=== PATIENT | male | born 1945 | race Caucasian/White ===

== ENCOUNTER 2018-05-03 08:43 | Inpatient (IN) ==
--- NOTE | 2018-05-03 09:25 | RAD ---
Examination: AP chest, two views History: Chest pain SOB Comparison 04/21/2018 Findings: Stable cardiac enlargement. Extensive bilateral interstitial process noted in the lungs, slightly increased since prior. No focal consolidation, pneumothorax or large pleural effusion is evident. Impression: Described findings consistent with increasing pulmonary edema/CHF superimposed on some element of more chronic interstitial scarring. Reported By:
[2018-05-03 09:27] LABS: BASOPHILS % (AUTO) 0.4 % (0.2-1.0); EOSINOPHILS # (AUTO) 0.1 x10^3/uL (0.0-0.2); EOSINOPHILS % (AUTO) 0.7 % (0.9-2.9); HEMATOCRIT 40.3 % (42.0-54.0); HEMOGLOBIN 13.8 g/dL (13.5-18.0); LYMPHOCYTES # (AUTO) 0.7 X10^3/uL (1.3-2.9); LYMPHOCYTES % (AUTO) 6.4 % (21.0-51.0); MEAN CORPUSCULAR HEMOGLOBIN 33.3 pg (27.0-34.0); MEAN CORPUSCULAR HGB CONC 34.4 g/dL (33.0-35.0); MEAN CORPUSCULAR VOLUME 96.9 fL (80.0-100.0); MONOCYTES # (AUTO) 0.5 x10^3/uL (0.3-0.8); MONOCYTES % (AUTO) 4.6 % (0.0-13.0); NEUTROPHILS % (AUTO) 87.9 % (42.0-75.0); PLATELET COUNT 169 X10^3/uL (150.0-450.0); RED BLOOD COUNT 4.16 X10^6/uL (4.7-6.0); WHITE BLOOD COUNT 11.4 X10^3/uL (3.6-10.0)
--- NOTE | 2018-05-03 09:29 | DR.SOBA ---
HPI Time Seen Time Seen by Provider: 05/03/18 09:27 Primary Care Physician Primary Care Physician: SRINATH LUTHER HPI Comment HPI Comment: WAS IN [facility] IN [place] WHERE HE WAS EVALUATED AND CHF CONFIM Complaints Chief Complaint Doctors Comments: INCREASING SOBSINCE LAST NIGHT. HISTORY CHF A ND COPD. ON HOME OXYGEN 3L/M. Chief Complaint:: PT C/O SOB, SINCE LAST NIGHT, PT WEARS 02 3 LPM AT HOME , PTS RESP LABORDED LUNGS CLEAR NO DISTRESS NOTED,,BR Self Treatment fo Chief Complaint: PT APPERS TO BE WINDED WHEN IS AMBULATORY , PT WAS 77 02 SATS , UPON ARRIVAL PT DID NOT HAVE HIS O2 ON , PT WAS D/C FROM [facility] IN [place] , A WEEK AGO ,,BR Reviewed Nurses Notes Reviewed: Yes Source History Provided: Patient Mode of Arrival Mode of Arrival: Ambulatory Timing Onset of Chief Complaint: 05/02/18 Duration Duration: Days Context Onset:: At Rest and With Light Exertion PE Risk Factors:: None History of:: COPD and CHF Currently on:: Inhaled Bronchodilators Modifying Factors Worsens:: Exertion and Lying Flat Improves:: Inhaler, Rest and Sitting Up Associated Signs and Symptoms Associated Signs and Symptoms: Wheeze and Chest Pain If Chest Pain Quality: Pleuritic PMH PMH Past Medical History: Yes Past Medical History: Diabetes and Dyslipidemia Past Surgical History: Yes Surgical History: Cholecystectomy Family History History of Family Medical Conditions: No Social History Does patient currently use any type of tobacco product: No Have you used tobacco products in the last 12 months: No Type of Tobacco Use: None Does any household member use tobacco: No Alcohol Use: None Do you use any recreational Drugs:: No Lives With: Family Lives Where: Home infectious screening In the last 2 months have you had wt loss of >10#?: NO Have you had fever, night sweats or hemotysis?: No Have you traveled outside the country in the last 6 months?: No Isolation: Standard PE Vital Signs Vitals: Temperature 97.6 F Pulse Rate 71 Respiratory Rate 20 Blood Pressure [Left Arm] 169/80 Blood Pressure 166/78 O2 Sat by Pulse Oximetry 97 ROR Labs Reviewed Result Diagrams: 05/03/18 09:16 05/03/18 09:16 Laboratory: WBC 11.4 X10^3/uL (3.6-10.0) H 05/03/18 09:16 RBC 4.16 X10^6/uL (4.7-6.0) L 05/03/18 09:16 Hgb 13.8 g/dL (13.5-18.0) 05/03/18 09:16 Hct 40.3 % (42.0-54.0) L 05/03/18 09:16 MCV 96.9 fL (80.0-100.0) 05/03/18 09:16 MCH 33.3 pg (27.0-34.0) 05/03/18 09:16 MCHC 34.4 g/dL (33.0-35.0) 05/03/18 09:16 RDW 13.0 % (11.6-16.5) 05/03/18 09:16 Plt Count 169 X10^3/uL (150.0-450.0) 05/03/18 09:16 MPV 7.0 fL (7.4-11.0) L 05/03/18 09:16 Neut % (Auto) 87.9 % (42.0-75.0) H 05/03/18 09:16 Lymph % (Auto) 6.4 % (21.0-51.0) L 05/03/18 09:16 [place] % (Auto) 4.6 % (0.0-13.0) 05/03/18 09:16 Eos % (Auto) 0.7 % (0.9-2.9) L 05/03/18 09:16 Baso % (Auto) 0.4 % (0.2-1.0) 05/03/18 09:16 Neut # (Auto) 10.0 x10^3/uL (2.2-4.8) H 05/03/18 09:16 Lymph # (Auto) 0.7 X10^3/uL (1.3-2.9) L 05/03/18 09:16 [place] # (Auto) 0.5 x10^3/uL (0.3-0.8) 05/03/18 09:16 Eos # (Auto) 0.1 x10^3/uL (0.0-0.2) 05/03/18 09:16 Baso # (Auto) 0.0 X10^3/uL (0.0-0.1) 05/03/18 09:16 Absolute Nucleated RBC 0.1 /100WBC 05/03/18 09:16 INR Target Range - 05/03/18 09:16 INR 1.08 (0.8-1.3) 05/03/18 09:16 APTT 30.5 SECONDS (22.9-36.5) 05/03/18 09:16 PTT Comment - 05/03/18 09:16 D-Dimer 789 ng/mL (0-400) H* 05/03/18 09:16 Sodium 137 mmol/L (136-145) 05/03/18 09:16 Corrected Sodium 138 mmol/L (136-145) 05/03/18 09:16 Potassium 3.6 mmol/L (3.5-5.1) 05/03/18 09:16 Chloride 97 mmol/L (98-107) L 05/03/18 09:16 Carbon Dioxide 31.0 mmol/L (21-32) 05/03/18 09:16 BUN 28 mg/dL (7-18) H 05/03/18 09:16 Creatinine 2.19 mg/dL (0.70-1.30) H 05/03/18 09:16 Est GFR (MDRD) Af Amer 38 (>60) L 05/03/18 09:16 Est GFR (MDRD) Non-Af 32 (>60) L 05/03/18 09:16 Glucose 160 mg/dL (65-99) H 05/03/18 09:16 Calcium 8.9 mg/dL (8.5-10.1) 05/03/18 09:16 Corrected Calcium TNP 05/03/18 09:16 Magnesium 1.9 mg/dL (1.7-2.9) 05/03/18 09:16 Total Bilirubin 1.30 mg/dL (0.2-1.0) H 05/03/18 09:16 AST 15 Units/L (15-37) 05/03/18 09:16 ALT 23 Units/L (12-78) 05/03/18 09:16 Alkaline Phosphatase 59 Units/L (46-116) 05/03/18 09:16 Creatine Kinase 52 Units/L (39-308) 05/03/18 09:16 CK-MB (CK-2) 1.6 ng/mL (0-4.0) 05/03/18 09:16 CK/CKMB % Calc 3.1 % (<4) 05/03/18 09:16 Troponin I 0.02 ng/mL (0-1.5) 05/03/18 09:16 B-Natriuretic Peptide 1260 pg/mL (0-79) H* 05/03/18 09:16 Total Protein 7.8 g/dL (6.4-8.2) 05/03/18 09:16 Albumin 3.8 g/dL (3.4-5.0) 05/03/18 09:16 Globulin 4.0 g/dL (2.5-4.5) 05/03/18 09:16 Albumin/Globulin Ratio 1.0 Ratio (1.1-2.1) L 05/03/18 09:16
[2018-05-03 09:48] LABS: BLOOD UREA NITROGEN 28 mg/dL (7-18); CALCIUM 8.9 mg/dL (8.5-10.1); CHLORIDE 97 mmol/L (98-107); COR NA(FOR HYPERGLY) 138 mmol/L (136-145); CREATININE 2.19 mg/dL (0.70-1.30); SODIUM 137 mmol/L (136-145); TROPONIN I 0.02 ng/mL (0-1.5); eGFR NON BLACK RACES 32 (>60)
[2018-05-03 09:53] LABS: ALANINE AMINOTRANSFERASE 23 Units/L (12-78); ALBUMIN 3.8 g/dL (3.4-5.0); ALKALINE PHOSPHATASE 59 Units/L (46-116); ASPARTATE AMINO TRANSFERASE 15 Units/L (15-37); CKMB % 3.1 % (<4); CREATINE KINASE 52 Units/L (39-308); CREATINE KINASE MB 1.6 ng/mL (0-4.0); MAGNESIUM 1.9 mg/dL (1.7-2.9); TOTAL PROTEIN 7.8 g/dL (6.4-8.2)
[2018-05-03 10:14] LABS: B-TYPE NATRIURETIC PEPTIDE 1260 pg/mL (0-79)
[2018-05-03] MEDS: TOPROL XL PO SCH (17:34)
[2018-05-03] MEDS: LASIX IVP SCH (17:40)
[2018-05-03] MEDS: PROzac PO SCH (17:40)
[2018-05-03] MEDS: AVODART PO SCH (17:40)
[2018-05-03] MEDS ORDERED: ZOFRAN INJ 4 MG VIAL IVP PRN (17:44)
[2018-05-03] MEDS ORDERED: ZOFRAN INJ 4 MG VIAL ONE (17:47)
[2018-05-03] MEDS: TYLENOL 325 MG TAB PO PRN (20:25)
[2018-05-03] MEDS: FLOMAX PO SCH (20:26)
[2018-05-03] MEDS: PriLOSEC PO SCH (20:26)
[2018-05-03] MEDS: TRICOR TAB 48 MG PO SCH (20:26)
[2018-05-03] MEDS: SINGULAIR TAB 10 MG PO SCH (20:26)
[2018-05-03] MEDS: SNACK - Diabetic Appropriate PO SCH (20:35)
[2018-05-03] MEDS: PHENERGAN INJ 25 MG IV PRN (21:09)
[2018-05-04 06:26] LABS: BASOPHILS % (AUTO) 0.4 % (0.2-1.0); EOSINOPHILS # (AUTO) 0.1 x10^3/uL (0.0-0.2); EOSINOPHILS % (AUTO) 1.1 % (0.9-2.9); HEMATOCRIT 37.3 % (42.0-54.0); LYMPHOCYTES # (AUTO) 1.4 X10^3/uL (1.3-2.9); LYMPHOCYTES % (AUTO) 13.9 % (21.0-51.0); MEAN CORPUSCULAR HEMOGLOBIN 33.5 pg (27.0-34.0); MEAN CORPUSCULAR HGB CONC 34.8 g/dL (33.0-35.0); MEAN CORPUSCULAR VOLUME 96.2 fL (80.0-100.0); MEAN PLATELET VOLUME 7.1 fL (7.4-11.0); MONOCYTES # (AUTO) 0.6 x10^3/uL (0.3-0.8); MONOCYTES % (AUTO) 6.1 % (0.0-13.0); NEUTROPHILS # (AUTO) 7.8 x10^3/uL (2.2-4.8); NEUTROPHILS % (AUTO) 78.5 % (42.0-75.0); PLATELET COUNT 144 X10^3/uL (150.0-450.0); RED BLOOD COUNT 3.87 X10^6/uL (4.7-6.0); RED CELL DISTRIBUTION WIDTH 12.6 % (11.6-16.5)
[2018-05-04 06:46] LABS: ALANINE AMINOTRANSFERASE 20 Units/L (12-78); ALBUMIN 3.4 g/dL (3.4-5.0); ALKALINE PHOSPHATASE 52 Units/L (46-116); ASPARTATE AMINO TRANSFERASE 17 Units/L (15-37); BLOOD UREA NITROGEN 29 mg/dL (7-18); CALCIUM 8.6 mg/dL (8.5-10.1); CARBON DIOXIDE 31.3 mmol/L (21-32); CHLORIDE 98 mmol/L (98-107); COR NA(FOR HYPERGLY) 138 mmol/L (136-145); CREATININE 2.32 mg/dL (0.70-1.30); SODIUM 137 mmol/L (136-145); TOTAL PROTEIN 6.9 g/dL (6.4-8.2); eGFR NON BLACK RACES 29 (>60)
[2018-05-04] MEDS ORDERED: K-RIDER 10 MEQ/NS 100 ML 10 MEQ/100 ML BAG IV PRN (06:54)
[2018-05-04] MEDS ORDERED: K-DUR TAB 20 MEQ PO PRN (06:54)
[2018-05-04] MEDS ORDERED: POTASSIUM CHLORIDE LIQ 20 MEQ UDC PO PRN (06:54)
[2018-05-04] MEDS ORDERED: POTASSIUM CHL 60 MEQ/NS 0.45% 500 ML IV PRN (06:54)
[2018-05-04] MEDS ORDERED: MAGNESIUM SULFATE 1 GRAM/100 mL PREMIX 1 GM/100 ML BAG IV PRN (06:54)
[2018-05-04] MEDS ORDERED: KLOR-CON PO PRN (06:54)
[2018-05-04] MEDS ORDERED: MICRO K EXTEN CAP 10 MEQ PO PRN (06:54)
[2018-05-04] MEDS ORDERED: POTASSIUM CHL 40 MEQ/NS 0.45% 500 ML IV PRN (06:54)
[2018-05-04 08:02] VITALS: BMI 34.8
[2018-05-04] MEDS: FLOMAX PO SCH ×2 (08:27→20:24)
[2018-05-04] MEDS: JANUVIA PO SCH (08:27)
[2018-05-04] MEDS: PriLOSEC PO SCH ×2 (08:27→20:24)
[2018-05-04] MEDS: TOPROL XL PO SCH (08:27)
[2018-05-04] MEDS: LASIX IVP SCH (08:27)
[2018-05-04] MEDS: PROzac PO SCH (08:27)
[2018-05-04] MEDS: ASPIRIN 81 MG CHEWTAB PO SCH (08:27)
[2018-05-04] MEDS: AVODART PO SCH (13:58)
[2018-05-04] MEDS: PHENERGAN INJ 25 MG IV PRN ×2 (13:59→22:23)
[2018-05-04] MEDS: SYNTHROID 100 mcg TAB PO SCH (16:08)
[2018-05-04] MEDS: TRICOR TAB 48 MG PO SCH (20:24)
[2018-05-04] MEDS: SINGULAIR TAB 10 MG PO SCH (20:24)
[2018-05-04] MEDS: SNACK - Diabetic Appropriate PO SCH (20:26)
[2018-05-04] MEDS: TYLENOL 325 MG TAB PO PRN (22:23)
[2018-05-05 05:24] LABS: BASOPHILS # (AUTO) 0.1 X10^3/uL (0.0-0.1); BASOPHILS % (AUTO) 0.6 % (0.2-1.0); EOSINOPHILS # (AUTO) 0.2 x10^3/uL (0.0-0.2); EOSINOPHILS % (AUTO) 2.1 % (0.9-2.9); HEMOGLOBIN 12.8 g/dL (13.5-18.0); LYMPHOCYTES # (AUTO) 1.5 X10^3/uL (1.3-2.9); LYMPHOCYTES % (AUTO) 15.8 % (21.0-51.0); MEAN CORPUSCULAR HEMOGLOBIN 33.6 pg (27.0-34.0); MEAN CORPUSCULAR HGB CONC 34.5 g/dL (33.0-35.0); MEAN CORPUSCULAR VOLUME 97.3 fL (80.0-100.0); MEAN PLATELET VOLUME 7.4 fL (7.4-11.0); MONOCYTES # (AUTO) 0.8 x10^3/uL (0.3-0.8); MONOCYTES % (AUTO) 8.3 % (0.0-13.0); NEUTROPHILS # (AUTO) 7.1 x10^3/uL (2.2-4.8); NEUTROPHILS % (AUTO) 73.2 % (42.0-75.0); PLATELET COUNT 143 X10^3/uL (150.0-450.0); RED CELL DISTRIBUTION WIDTH 12.9 % (11.6-16.5); WHITE BLOOD COUNT 9.6 X10^3/uL (3.6-10.0)
[2018-05-05 05:32] LABS: ALBUMIN 3.3 g/dL (3.4-5.0); CALCIUM 8.6 mg/dL (8.5-10.1); CARBON DIOXIDE 32.2 mmol/L (21-32); COR CA(FOR HYPOALB) 9.2 mg/dL (8.5-10.1); CREATININE 2.39 mg/dL (0.70-1.30); TOTAL PROTEIN 6.8 g/dL (6.4-8.2)
--- NOTE | 2018-05-05 06:51 | RAD ---
HISTORY: Shortness of breath Study: Chest AP portable Comparison: 05/03/2018 Findings: The heart remains enlarged. No definite congestive heart failure is noted. Diffuse bilateral interstitial lung disease is present some of which may be chronic and [place] which may be due to some superimposed edema. The appearance is not significantly changed from the prior examination. No pleural effusions are identified. The bony thorax is unremarkable. IMPRESSION: No significant change from the prior examination Reported By:
[2018-05-05] MEDS: PROzac PO SCH (09:15)
[2018-05-05] MEDS: PriLOSEC PO SCH ×2 (09:15→20:33)
[2018-05-05] MEDS: LASIX IVP SCH ×2 (09:15→20:33)
[2018-05-05] MEDS: JANUVIA PO SCH (09:15)
[2018-05-05] MEDS: ASPIRIN 81 MG CHEWTAB PO SCH (09:15)
[2018-05-05] MEDS: FLOMAX PO SCH ×2 (09:15→20:33)
[2018-05-05] MEDS: AVODART PO SCH (09:15)
[2018-05-05] MEDS: TOPROL XL PO SCH (09:15)
[2018-05-05] MEDS: NORVASC TAB 5 MG PO SCH (12:43)
[2018-05-05] MEDS: PHENERGAN INJ 25 MG IV PRN (12:43)
[2018-05-05] MEDS: TYLENOL 325 MG TAB PO PRN (12:43)
[2018-05-05] MEDS: SYNTHROID 100 mcg TAB PO SCH (16:39)
[2018-05-05] MEDS: TRICOR TAB 48 MG PO SCH (20:33)
[2018-05-05] MEDS: SINGULAIR TAB 10 MG PO SCH (20:33)
[2018-05-05] MEDS: SNACK - Diabetic Appropriate PO SCH (20:34)
[2018-05-06] MEDS: TYLENOL 325 MG TAB PO PRN ×2 (04:56→16:23)
[2018-05-06 05:15] LABS: BASOPHILS # (AUTO) 0.1 X10^3/uL (0.0-0.1); BASOPHILS % (AUTO) 0.6 % (0.2-1.0); EOSINOPHILS # (AUTO) 0.3 x10^3/uL (0.0-0.2); EOSINOPHILS % (AUTO) 2.6 % (0.9-2.9); HEMATOCRIT 39.3 % (42.0-54.0); HEMOGLOBIN 13.4 g/dL (13.5-18.0); LYMPHOCYTES # (AUTO) 1.3 X10^3/uL (1.3-2.9); LYMPHOCYTES % (AUTO) 11.5 % (21.0-51.0); MEAN CORPUSCULAR HEMOGLOBIN 33.1 pg (27.0-34.0); MEAN CORPUSCULAR HGB CONC 34.2 g/dL (33.0-35.0); MEAN CORPUSCULAR VOLUME 96.8 fL (80.0-100.0); MEAN PLATELET VOLUME 7.4 fL (7.4-11.0); MONOCYTES # (AUTO) 0.8 x10^3/uL (0.3-0.8); MONOCYTES % (AUTO) 7.5 % (0.0-13.0); NEUTROPHILS # (AUTO) 8.5 x10^3/uL (2.2-4.8); NEUTROPHILS % (AUTO) 77.8 % (42.0-75.0); PLATELET COUNT 137 X10^3/uL (150.0-450.0); RED BLOOD COUNT 4.06 X10^6/uL (4.7-6.0); RED CELL DISTRIBUTION WIDTH 12.9 % (11.6-16.5); WHITE BLOOD COUNT 10.9 X10^3/uL (3.6-10.0)
[2018-05-06 05:28] LABS: ALANINE AMINOTRANSFERASE 31 Units/L (12-78); ALBUMIN 3.6 g/dL (3.4-5.0); ALKALINE PHOSPHATASE 65 Units/L (46-116); ASPARTATE AMINO TRANSFERASE 29 Units/L (15-37); BLOOD UREA NITROGEN 37 mg/dL (7-18); CALCIUM 8.8 mg/dL (8.5-10.1); CARBON DIOXIDE 32.5 mmol/L (21-32); CHLORIDE 99 mmol/L (98-107); COR NA(FOR HYPERGLY) 141 mmol/L (136-145); CREATININE 2.41 mg/dL (0.70-1.30); SODIUM 140 mmol/L (136-145); TOTAL PROTEIN 7.1 g/dL (6.4-8.2); eGFR NON BLACK RACES 28 (>60)
[2018-05-06 05:50] LABS: B-TYPE NATRIURETIC PEPTIDE 1050 pg/mL (0-79)
--- NOTE | 2018-05-06 06:19 | RAD ---
HISTORY: Shortness of breath Study: Chest AP portable Comparison: 05/05/2018 Findings: The heart remains enlarged. No congestive heart failure is noted. Diffuse interstitial lung changes are again identified and are unchanged in degree or distribution from the prior examination. No acute alveolar infiltrates or pleural effusions are identified. The bony thorax is unremarkable. IMPRESSION: Moderate cardiomegaly without congestive heart failure Stable interstitial lung changes Reported By:
[2018-05-06] MEDS: PHENERGAN INJ 25 MG IV PRN (07:20)
[2018-05-06] MEDS ORDERED: JANUVIA PO SCH (09:00)
[2018-05-06] MEDS: ASPIRIN 81 MG CHEWTAB PO SCH (09:37)
[2018-05-06] MEDS: AVODART PO SCH (09:38)
[2018-05-06] MEDS: FLOMAX PO SCH (09:41)
[2018-05-06] MEDS: LASIX IVP SCH (09:42)
[2018-05-06] MEDS: PriLOSEC PO SCH (09:42)
[2018-05-06] MEDS: NORVASC TAB 5 MG PO SCH (09:42)
[2018-05-06] MEDS: PROzac PO SCH (09:42)
[2018-05-06] MEDS: TOPROL XL PO SCH (09:42)
--- NOTE | 2018-05-06 10:45 | PCM.PROG ---
Progress Note - Progress Note for Day of Date of Exam: 05/05/18 - Subjective Subjective: IS A 72 YEAR OLD PATIENT OF OURS WHO WAS ADMITTED ON 05/03/18 WITH CONGESTIVE HEART FAILURE. HE REPORTS AN INCREASE IN SHORTNESS OF BREATH SINCE HIS PREVIOUS ANEURYSM REPAIR. HE WAS RECENTLY EVALUATED AT [facility] FOR HEART FAILURE. AN ECHO WAS OBTAINED THERE AND EVEALED GA D-MOD LVE/MILD LVH, PARADOXICAL SEPTAL MOTION WITH OTHERWISE NORMAL CONTRACTILITY, PRESERVED EF 55%. MILD-MOD ENLARGED HEART SIZES WITH MILD GLOBAL RV DYSFUNCTION. HE DENIES BEING ABLE TO LIE FLAT AND REPORTS INCREASED SHORTNESS OF BREATH ON EXERTION. HE CONTINUES WITH SHORTNESS OF BREATH TODAY. ON EXAMINATION, HEART IS REGULAR IN RATE AND RHYTHM. BILATERAL LUNGS ARE NOTED WITH DIMINISHED LUNG SOUNDS THROUGHOUT. ABDOMEN IS ROUND, SOFT, AND NON-TENDER WITH NORMAL BOWEL SOUNDS NOTED IN ALL QUADRANTS. THERE IS 1+ EDEMA NOTED TO LOWER EXTREMITIES. HIS VITLAS THIS MORNING ARE 98.5-67-20-94%-161/94. LABS WERE OBTAINED. ABNORMAL LAB VALUES INCLUDE THE FOLLOWING: RBC 3.80, HGB 12.8, HCT 37.0, PLT COUNT 143, CARBON DIOXIDE 32.2, BUN 33, CREATININE 2.39, GLUCOSE 139, TOTAL BILI 1.10, AST 14, BNP DECREASED TO 1080, ALBUMIN 3.3. TODAYS CHEST XRAY REVEALED: The heart remains enlarged. No definite congestive heart failure is noted. Diffuse bilateral interstitial lung disease is present some of which may be chronic and [place] which may be due to some superimposed edema. The appearance is not significantly changed from the prior examination. No pleural effusions are identified. The bony thorax is unremarkable. TODAY, WE WILL CONTINUE WITH LASIX 20MG IV BID AND WILL START AMLODIPINE 5MG PO DAILY. OTHERWISE, WE WILL FOLLOW UP WITH AM LABS AND CONTINUE TO MONITOR. - Past Medical Family Social History Past Med/Fam/Surg Hx: No changes since H&P Allergies: Allergies latex Allergy (Verified 05/03/18 08:54) TERAMYCIN Allergy (Uncoded 05/03/18 08:54) - Review of Systems ROS: No change since H&P - Vital Signs and I&O's Vital Signs: Temperature 99.1 F Pulse Rate [Left Brachial] 83 Pulse Rate 71 Respiratory Rate 20 Blood Pressure [Right Arm] 174/83 Blood Pressure [Left Arm] 148/69 Blood Pressure 166/78 O2 Sat by Pulse Oximetry 96 Intake and Output: Intake & Output 05/03/18 05/04/18 05/05/18 05/06/18 11:59 11:59 11:59 11:59 Intake Total 780 / 780 2019 2620 / 2620 Output Total 1800 / 1800 2600 / 2600 4075 / 4075 Balance -1020 / -1020 -580 / -580 -1455 / -1455 - Physical Exam Oriented: Normal Eyes: Normal Ear: Normal Nose: Normal Throat: Normal Respiratory: Generalized, Diminished Cardiovascular: Edema (LOWER EXTREMITIES ) : Normal Auscultation: Bowel Sounds: Normal Palpation: Normal Tenderness: Normal Skin: Normal Musculoskeletal: Normal Psychiatric: Normal Mood Description: Calm Affect: Normal Speech Pattern: Clear, Appropriate - Laboratory and Diagnostics Result Diagrams: 05/06/18 04:20 05/06/18 04:20 Labs: Laboratory WBC 10.9 X10^3/uL (3.6-10.0) H 05/06/18 04:20 RBC 4.06 X10^6/uL (4.7-6.0) L 05/06/18 04:20 Hgb 13.4 g/dL (13.5-18.0) L 05/06/18 04:20 Hct 39.3 % (42.0-54.0) L 05/06/18 04:20 MCV 96.8 fL (80.0-100.0) 05/06/18 04:20 MCH 33.1 pg (27.0-34.0) 05/06/18 04:20 MCHC 34.2 g/dL (33.0-35.0) 05/06/18 04:20 RDW 12.9 % (11.6-16.5) 05/06/18 04:20 Plt Count 137 X10^3/uL (150.0-450.0) L 05/06/18 04:20 MPV 7.4 fL (7.4-11.0) 05/06/18 04:20 Neut % (Auto) 77.8 % (42.0-75.0) H 05/06/18 04:20 Lymph % (Auto) 11.5 % (21.0-51.0) L 05/06/18 04:20 [place] % (Auto) 7.5 % (0.0-13.0) 05/06/18 04:20 Eos % (Auto) 2.6 % (0.9-2.9) 05/06/18 04:20 Baso % (Auto) 0.6 % (0.2-1.0) 05/06/18 04:20 Neut # (Auto) 8.5 x10^3/uL (2.2-4.8) H 05/06/18 04:20 Lymph # (Auto) 1.3 X10^3/uL (1.3-2.9) 05/06/18 04:20 [place] # (Auto) 0.8 x10^3/uL (0.3-0.8) 05/06/18 04:20 Eos # (Auto) 0.3 x10^3/uL (0.0-0.2) H 05/06/18 04:20 Baso # (Auto) 0.1 X10^3/uL (0.0-0.1) 05/06/18 04:20 Absolute Nucleated RBC 0.1 /100WBC 05/06/18 04:20 INR Target Range - 05/03/18 09:16 INR 1.08 (0.8-1.3) 05/03/18 09:16 APTT 30.5 SECONDS (22.9-36.5) 05/03/18 09:16 PTT Comment - 05/03/18 09:16 D-Dimer 789 ng/mL (0-400) H* 05/03/18 09:16 Sodium 140 mmol/L (136-145) 05/06/18 04:20 Corrected Sodium 141 mmol/L (136-145) 05/06/18 04:20 Potassium 3.4 mmol/L (3.5-5.1) L 05/06/18 04:20 Chloride 99 mmol/L (98-107) 05/06/18 04:20 Carbon Dioxide 32.5 mmol/L (21-32) H 05/06/18 04:20 BUN 37 mg/dL (7-18) H 05/06/18 04:20 Creatinine 2.41 mg/dL (0.70-1.30) H 05/06/18 04:20 Est GFR (MDRD) Af Amer 34 (>60) L 05/06/18 04:20 Est GFR (MDRD) Non-Af 28 (>60) L 05/06/18 04:20 Glucose 145 mg/dL (65-99) H 05/06/18 04:20 POC Glucose (mg/dL) 155 mg/dL (65-99) H 05/06/18 05:32 Calcium 8.8 mg/dL (8.5-10.1) 05/06/18 04:20 Corrected Calcium TNP 05/06/18 04:20 Magnesium 1.9 mg/dL (1.7-2.9) 05/04/18 05:50 Total Bilirubin 0.70 mg/dL (0.2-1.0) 05/06/18 04:20 AST 29 Units/L (15-37) 05/06/18 04:20 ALT 31 Units/L (12-78) 05/06/18 04:20 Alkaline Phosphatase 65 Units/L (46-116) 05/06/18 04:20 Creatine Kinase 52 Units/L (39-308) 05/03/18 09:16 CK-MB (CK-2) 1.6 ng/mL (0-4.0) 05/03/18 09:16 CK/CKMB % Calc 3.1 % (<4) 05/03/18 09:16 Troponin I 0.02 ng/mL (0-1.5) 05/03/18 09:16 B-Natriuretic Peptide 1050 pg/mL (0-79) H* 05/06/18 04:20 Total Protein 7.1 g/dL (6.4-8.2) 05/06/18 04:20 Albumin 3.6 g/dL (3.4-5.0) 05/06/18 04:20 Globulin 3.5 g/dL (2.5-4.5) 05/06/18 04:20 Albumin/Globulin Ratio 1.0 Ratio (1.1-2.1) L 05/06/18 04:20 - Plan (1) Congestive heart failure Status: Acute Qualifiers: Heart failure type: diastolic Heart failure chronicity: acute Qualified Code(s): I50.31 - Acute diastolic (congestive) heart failure Plan: LASIX 20MG IV BID, CONTINUE TO MONITOR (2) Hypertension Status: Acute Qualifiers: Hypertension type: essential hypertension Qualified Code(s): I10 - Essential (primary) hypertension Plan: NORVASC 5MG PO DAILY, TOPROL 25MG PO DAILY, (3) Diabetes Status: Acute Qualifiers: Diabetes mellitus type: type 2 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
[2018-05-06] MEDS ORDERED: NORVASC TAB 10 MG PO SCH (11:00)
[2018-05-06] MEDS: SYNTHROID 100 mcg TAB PO SCH (16:23)
[2018-05-06 16:50] VITALS: BP 153/82
== END 2018-05-06 16:55 | disposition home or self-care (01) | DRG 293 ==
LOC: ER 08:53 → MED/SURG 08:53 → OBSVTOIN 12:44 → MED/SURG 13:11
PROVIDERS: ADMIT Internal Medicine; ATTEND Internal Medicine
DX: Z99.81 Dependence on supplemental oxygen; R06.02 Shortness of breath; E11.65 Type 2 diabetes mellitus with hyperglycemia; Z79.01 Long term (current) use of anticoagulants; J44.9 Chronic obstructive pulmonary disease, unspecified; R94.4 Abnormal results of kidney function studies; N40.0 Benign prostatic hyperplasia without lower urinary tract symptoms; I50.9 Heart failure, unspecified; I11.0 Hypertensive heart disease with heart failure; R94.31 Abnormal electrocardiogram [ECG] [EKG]; E78.2 Mixed hyperlipidemia; Z79.899 Other long term (current) drug therapy
CPT/HCPCS: 36415; 71010; 71045; 80053; 82550; 82553; 83735; 83880; 84484; 85025; 85378; 85610; 85730; 93005; 94760; 96365; 96367; 99284; A4216; A4222; J1940; J2405; J2550; J3490

== ENCOUNTER 2021-10-18 12:44 | Inpatient (IN) ==
[2021-10-18 13:35] LABS: ABG BASE EXCESS 4.8 mmol/L (-2.0-2.0); ABG HCO3 29.9 mmol/L (22-26)
[2021-10-18 13:36] LABS: ABG ALLEN TEST POS
[2021-10-18] MEDS ORDERED: DUONEB 0.5 MG/3 MG (3 mL) NEB ONE (13:45)
[2021-10-18] MEDS: DUONEB 0.5 MG/3 MG (3 mL) NEB SCH ×2 (13:45→20:05)
[2021-10-18] MEDS ORDERED: SALINE 3% 15 ML NEB TX ONE (13:46)
[2021-10-18 13:56] LABS: BILIRUBIN,URINE NEGATIVE (NEGATIVE); BLOOD/HEMOGLOBIN,URINE NEGATIVE (NEGATIVE); GLUCOSE, URINE NEGATIVE (NEGATIVE); KETONES,URINE NEGATIVE (NEGATIVE); LEUKOCYTE ESTERASE ,URINE NEGATIVE (NEGATIVE); NITRITES,URINE NEGATIVE (NEGATIVE); PROTEIN,URINE NEGATIVE (NEGATIVE); UROBILINOGEN,URINE NORMAL (NORMAL)
[2021-10-18 13:58] LABS: APPEARANCE,URINE CLEAR (CLEAR); COLOR,URINE YELLOW (YELLOW)
[2021-10-18] MEDS: PULMICORT NEB TX 0.5 MG NEB SCH ×2 (13:58→20:05)
[2021-10-18 14:12] LABS: BASOPHILS % (AUTO) 0.2 % (0.2-1.0); EOSINOPHILS # (AUTO) 0.1 x10^3/uL (0.0-0.2); EOSINOPHILS % (AUTO) 1.2 % (0.9-2.9); HEMOGLOBIN 14.8 g/dL (13.5-18.0); LYMPHOCYTES # (AUTO) 0.9 X10^3/uL (1.3-2.9); LYMPHOCYTES % (AUTO) 9.7 % (21.0-51.0); MEAN CORPUSCULAR HEMOGLOBIN 32.8 pg (27.0-34.0); MEAN CORPUSCULAR HGB CONC 34.4 g/dL (33.0-35.0); MEAN CORPUSCULAR VOLUME 95.5 fL (80.0-100.0); MEAN PLATELET VOLUME 6.8 fL (7.4-11.0); MONOCYTES # (AUTO) 0.7 x10^3/uL (0.3-0.8); MONOCYTES % (AUTO) 6.9 % (0.0-13.0); NEUTROPHILS # (AUTO) 7.7 x10^3/uL (2.2-4.8); RED CELL DISTRIBUTION WIDTH 13.8 % (11.6-16.5); WHITE BLOOD COUNT 9.4 X10^3/uL (3.6-10.0)
[2021-10-18] MEDS ORDERED: NS 1/2 1,000 ML IV 1,000 ML IV ONE ×2 (14:14→19:07)
[2021-10-18 14:22] LABS: ALANINE AMINOTRANSFERASE 28 Units/L (12-78); ALBUMIN 3.7 g/dL (3.4-5.0); ALKALINE PHOSPHATASE 49 Units/L (46-116); ASPARTATE AMINO TRANSFERASE 23 Units/L (15-37); BLOOD UREA NITROGEN 31 mg/dL (7-18); CALCIUM 8.2 mg/dL (8.5-10.1); CARBON DIOXIDE 30.3 mmol/L (21-32); CHLORIDE 98 mmol/L (98-107); COR NA(FOR HYPERGLY) 134 mmol/L (136-145); CREATININE 2.32 mg/dL (0.70-1.30); SODIUM 134 mmol/L (136-145); TOTAL PROTEIN 7.6 g/dL (6.4-8.2); eGFR NON BLACK RACES 29 (>60)
[2021-10-18] MEDS: LEVAQUIN PREMIX IV 500 MG 500 MG/100 ML BAG IV SCH (14:23)
[2021-10-18] MEDS: VSL#3 PO SCH (14:23)
[2021-10-18] MEDS: ROBITUSSIN DM PO SCH ×3 (14:23→20:35)
[2021-10-18] MEDS: NS 1/2 1,000 ML IV 1,000 ML IV SCH (14:23)
--- NOTE | 2021-10-18 15:33 | RAD ---
CHEST, PA/LAT ADULTHISTORY: PNEUMONIAStudy: PA and lateral views of the chest.Comparison:NoneFindings:The cardiomediastinal silhouette is normal. No focal consolidations, pleural effusions or pneumothorax. Osseous structures demonstrate no acute abnormality. Bilateral hyperexpansion and interstitial prominence.IMPRESSION:1. No acute cardiopulmonary process.2. Findings of COPD.Electronically signed by: SB OGDEN (Oct 18, 2021 15:32:20)
[2021-10-18] MEDS: COREG TAB 12.5 MG PO SCH (20:35)
[2021-10-18] MEDS ORDERED: SOLU-Medrol 40 MG VIAL ONE (20:36)
[2021-10-18] MEDS: SOLU-Medrol 40 MG VIAL IVP SCH (21:02)
[2021-10-18] MEDS ORDERED: RESTORIL CAP 15 MG PO PRN (21:05)
[2021-10-18] MEDS ORDERED: SOLU-Medrol 40 MG VIAL IVP SCH (22:00)
[2021-10-18] MEDS: TUSSIONEX PENNKINETIC SUSP PO PRN (22:45)
[2021-10-19] MEDS: NS 1/2 1,000 ML IV 1,000 ML IV SCH ×3 (03:01→16:59)
[2021-10-19] MEDS: SOLU-Medrol 40 MG VIAL IVP SCH ×3 (06:00→21:06)
--- NOTE | 2021-10-19 06:22 | RAD ---
HISTORYFollow-up pneumonia, shortness of breathSTUDYChest AP [id number]/13/2022FINDINGSThe heart is enlarged. No congestive heart failure is noted. The ezequiel are normal. Lungs are mildly hyperinflated but free of acute alveolar infiltrates and areas of consolidation. No pleural effusions or pneumothoraces are identified. Bony thorax is unremarkable.IMPRESSIONMild cardiomegaly without congestive heart failureLungs hyperinflated but free of acute infiltratesElectronically signed by: RAVEN HOUSTON (Oct 19, 2021 06:20:51)
[2021-10-19 06:24] LABS: BASOPHILS % (AUTO) 0.1 % (0.2-1.0); EOSINOPHILS % (AUTO) 0.1 % (0.9-2.9); HEMATOCRIT 39.3 % (42.0-54.0); HEMOGLOBIN 13.8 g/dL (13.5-18.0); LYMPHOCYTES # (AUTO) 0.5 X10^3/uL (1.3-2.9); LYMPHOCYTES % (AUTO) 6.8 % (21.0-51.0); MEAN CORPUSCULAR HGB CONC 35.2 g/dL (33.0-35.0); MEAN CORPUSCULAR VOLUME 93.8 fL (80.0-100.0); MEAN PLATELET VOLUME 7.1 fL (7.4-11.0); MONOCYTES # (AUTO) 0.2 x10^3/uL (0.3-0.8); MONOCYTES % (AUTO) 3.1 % (0.0-13.0); NEUTROPHILS # (AUTO) 6.7 x10^3/uL (2.2-4.8); NEUTROPHILS % (AUTO) 89.9 % (42.0-75.0); RED BLOOD COUNT 4.19 X10^6/uL (4.7-6.0); WHITE BLOOD COUNT 7.4 X10^3/uL (3.6-10.0)
[2021-10-19 06:35] LABS: ALBUMIN 3.2 g/dL (3.4-5.0); CALCIUM 8.2 mg/dL (8.5-10.1); CARBON DIOXIDE 28.9 mmol/L (21-32); COR CA(FOR HYPOALB) 8.8 mg/dL (8.5-10.1); CREATININE 2.09 mg/dL (0.70-1.30); TOTAL PROTEIN 6.8 g/dL (6.4-8.2)
[2021-10-19] MEDS: LEVAQUIN PREMIX IV 500 MG 500 MG/100 ML BAG IV SCH (09:05)
[2021-10-19] MEDS: COREG TAB 12.5 MG PO SCH ×2 (09:06→20:43)
[2021-10-19] MEDS: VSL#3 PO SCH (09:06)
[2021-10-19] MEDS: ROBITUSSIN DM PO SCH ×6 (09:07→20:42)
[2021-10-19] MEDS ORDERED: VITAMIN E 400 UNIT PO SCH (09:15)
[2021-10-19] MEDS: DUONEB 0.5 MG/3 MG (3 mL) NEB SCH ×4 (09:40→20:25)
[2021-10-19] MEDS: PULMICORT NEB TX 0.5 MG NEB SCH ×2 (09:40→20:25)
[2021-10-19] MEDS ORDERED: COREG TAB 12.5 MG PO SCH (10:00)
[2021-10-19] MEDS: VITAMIN D3 125 mcg (5,000 UNITS) PO SCH (11:17)
[2021-10-19] MEDS: FLOMAX PO SCH ×2 (11:17→20:42)
[2021-10-19] MEDS: ZINC SULFATE PO SCH (11:17)
[2021-10-19] MEDS: JANUVIA PO SCH (11:18)
[2021-10-19] MEDS: SINGULAIR TAB 10 MG PO SCH (11:18)
[2021-10-19] MEDS: PriLOSEC PO SCH ×2 (11:18→20:42)
[2021-10-19] MEDS: SYNTHROID 100 mcg TAB PO SCH (11:22)
[2021-10-19] MEDS ORDERED: NS 1/2 1,000 ML IV 1,000 ML IV ONE (16:39)
[2021-10-19] MEDS: NovoLIN R (or HumuLIN R) SUBCUT PRN ×2 (17:36→20:44)
--- NOTE | 2021-10-19 18:25 | DR.H&P ---
H&P - History & Physical for Day of: H&P Date: 10/18/21 - Chief Complaint Chief Complaint: COUGH, CONGESTION, SOB - History of Present Illness History of Present Illness: IS A 75 YEAR OLD PATIENT OF OURS. HE PRESENTED TO THE OFFICE WITH COMPLAINTS OF COUGH, CONGESTION, AND SHORTNESS OF BREATH. SYMPTOMS STARTED ON 10/12/21. HE RECEIVED A ROCEPHIN 1G IM INJECTION AND A PRESCRIPTION FOR BACTRIM DS BID ON 10/16/21. HE REPORTS WORSENING OF SYMPTOMS DESPITE COMPLIANCE WITH MEDICATIONS. HE REPORTS THAT HIS OXYGEN SATURATIONS ON ROOM AIR DROPPED TO 77%. HE HAS A HX OF CHF, HTN, COPD, EMPHYSEMA, SLEEP APNEA, GERD, RENAL DISEASE, BPH, GOUT, DM TYPE 1, HYPERTHYROIDISM, CHOLECYSTECTOMY, AAA, INGUINAL HERNIA. HE DOES HAVE HOME OXYGEN. WHILE IN THE OFFICE, PATIENTS OXYGEN SATURATIONS WERE 90% WHILE ON 2 LPM NASAL CANNULA. WHEN OXYGEN WAS REMOVED, SATURATIONS DROPPED TO 80%. AUSCULTATION OF LUNG TAPIA REVEALED SCATTERED WHEEZING THROUGHOUT. DECISION WAS MADE TO ADMIT PATIENT TO THE HOSPITAL FOR FURTHER EVALUATION AND TREATMENT OF COPD EXACERBATION WITH ACUTE BRONCHITIS AND HYPOXIA. ON ARRIVAL TO THE HOSPITAL, VITALS WERE: 98.5-77-22-80%RA-209/91. SATURATIONS INCREASED TO 93% ON OXYGEN AT 2 LPM. LABS WERE OBTAINED. WBC 9.4, RBC 4.50, HGB 14.8, HCT 43.0, PLT COUNT 138, SODIUM 134, POTASSIUM 4.0, CHLORIDE 98, BUN 31, CREATININE 2.32, GLUCOSE 119, CALCIUM 8.2, AST 23, ALT 28, ALK PHOS 49, CRP 27.80, BNP 308, TOTAL PROTEIN 7.6, ALBUMIN 3.7. ABG REVEALED: PH 7.430, PC02 45, P02 43, HC03 29.9, 02 SAT 80, BASE EXCESS 4.8, A-A GRADIENT 50, FI02 21.0. URINALYSIS WAS OBTAINED AND WAS NEGATIVE. BLOOD AND SPUTUM CULTURES WERE SET UP. A CHEST XRAY WAS OBTAINED AND REVEALED: The cardiomediastinal silhouette is normal. No focal consolidations, pleural effusions or pneumothorax. Osseous structures demonstrate no acute abnormality. Bilateral hyperexpansion and interstitial prominence. HE WAS STARTED ON 1/2NS AT 75 ML/HR, LEVAQUIN 500MG IV DAILY, SOLU-MEDROL 40MG IV Q8H, DUONEBS QID, PULMICORT NEBS BID, TUSSIONEX 5ML PO Q12H PRN, ROBITUSSIN DM 10ML PO QID, HUMULIN R SLIDING SCALE, OTBS ACHS, AND HIS HOME MEDICATIONS WERE RESUMED. OTHERWISE, WE PLAN TO FOLLOW-UP WITH AM LABS AND CONTINUE TO MONITOR. TIME SPENT ON CLINICAL ASSESSMENT, REVIEWING LABS AND IMAGING, DECISION MAKING, AND DOCUMENTATION GREATER THAN 75 MINUTES. - Past Medical History Past Medical History: CHF, COPD, Diabetes, Dyslipidemia, GERD, Gout, Hypertension, Hyperthyroidism, Renal Disease, Sleep Apnea Additional Medical History: BPH, EMPHYSEMA, GOUT, - Past Surgical History Surgical History: AAA Repair, Cholecystectomy - Family History Family Medical History: Diabetes Mellitus, Cancer, [place] - Social History Does patient currently use any type of tobacco product: No Have you used tobacco products in the last 12 months: No Type of Tobacco Use: None Does any household member use tobacco: No Alcohol Use: None Drug Use: None - Medications Home Medications: codeine Allergy (Verified 10/18/21 15:12) latex Allergy (Verified 05/03/18 08:54) TERAMYCIN Allergy (Uncoded 05/03/18 08:54) CONTINUE taking the following medications budesonide 0.5 mg/2 mL suspension for nebulization (Pulmicort) 0.5 mg inhalation BID 10/18/21 [History] carvedilol 12.5 mg tablet (Coreg) 12.5 mg PO BID 10/18/21 [History] cetirizine 10 mg tablet 10 mg PO HS 10/18/21 [History] chlorpheniramine-hydrocodone ER oral suspension,extended release 12 hr 5 ml PO Q12H PRN Cough 10/18/21 [History] cholecalciferol (vitamin D3) 50 mcg (2,000 unit) tablet (Vitamin D3) 5,000 unit PO DAILY 10/18/21 [History] dutasteride 0.5 mg capsule 0.5 mg PO DAILY 10/18/21 [History] fluticasone fur. 100 mcg-umeclid 62.5 mcg-vilant 25 mcg inhalat.powder (Trelegy Ellipta) 1 inh inhalation DAILY 10/18/21 [History] guaifenesin 600 mg tablet, extended release 12 hr (Mucinex) 600 mg PO BID 10/18/21 [History] ipratropium 0.5 mg-albuterol 3 mg (2.5 mg base)/3 mL nebulization soln 1 ml inhalation BID 10/18/21 [History] melatonin 10 mg tablet 10 mg PO HS 10/18/21 [History] sulfamethoxazole 800 mg-trimethoprim 160 mg tablet (Bactrim DS) 1 tab PO BID 10/18/21 [History] vitamin E 400 unit tablet 400 unit PO DAILY 10/18/21 [History] zinc 100 mg tablet 100 mg PO DAILY 10/18/21 [History] - Review of Systems Constitutional: Weakness Eyes: No Symptoms Reported ENT: Nose Congestion Respiratory: Cough, Dry, Shortness of Breath, SOB with Excertion, Wheezing Cardiovascular: No Symptoms Reported Gastrointestinal: No Symptoms Reported Genitourinary: No Symptoms Reported Musculoskeletal: No Symptoms Reported Skin: No Symptoms Reported Neurological: Weakness - Physical Exam Vital Signs: Temperature 98 F Pulse Rate [Left Brachial] 115 Pulse Rate 74 Respiratory Rate 22 Blood Pressure [Right Arm] 122/79 Blood Pressure [Left Arm] 148/69 Blood Pressure 153/88 O2 Sat by Pulse Oximetry 91 Oriented: Normal Eyes: Normal Ear: Normal Nose: Normal Throat: Normal Respiratory: Wheezes Throughout Cardiovascular: Tachycardia : Normal Auscultation: Bowel Sounds: Normal Palpation: Normal Tenderness: Normal Skin: Normal Musculoskeletal: Normal Psychiatric: Normal Mood Description: Calm Affect: Normal Speech Pattern: Clear - Assessment/Plan (1) COPD with acute bronchitis Status: Acute Plan: ADMIT, SUPPLEMENTAL OXYGEN, 1/2NS AT 75 ML/HR, LEVAQUIN 500MG IV DAILY, SOLU-MEDROL 40MG IV Q8H, DUONEBS QID, PULMICORT NEBS BID, TUSSIONEX 5ML PO Q12H PRN, ROBITUSSIN DM 10ML PO QID, HUMULIN R SLIDING SCALE, OTBS ACHS, AND HIS HOME MEDICATIONS WERE RESUMED. 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 Diabetes mellitus complication status: with hyperglycemia Qualified Code(s): E11.65 - Type 2 diabetes mellitus with hyperglycemia; Z79.4 - intermediate (current) use of insulin Status: Chronic (6) BPH (benign prostatic hyperplasia) Qualifiers: Lower urinary tract symptom presence: unspecified whether lower urinary tract symptoms present Qualified Code(s): N40.0 - Benign prostatic hyperplasia without lower urinary tract symptoms Status: Chronic - Allergies Allergies/Adverse Reactions: Allergies Allergy/AdvReac Type Severity Reaction Status Date / Time codeine Allergy Verified 10/18/21 15:12 latex Allergy Verified 05/03/18 08:54 TERAMYCIN Allergy Uncoded 05/03/18 08:54
[2021-10-19] MEDS ORDERED: MELATONIN ONE (19:23)
[2021-10-19] MEDS ORDERED: ZyrTEC TAB 10 MG ONE (19:23)
[2021-10-19] MEDS ORDERED: SNACK - Diabetic Appropriate PO SCH (20:00)
[2021-10-19] MEDS ORDERED: COLACE CAP 100 MG PO PRN (20:05)
[2021-10-19] MEDS: MELATONIN PO SCH (20:43)
[2021-10-19] MEDS: SNACK - Diabetic Appropriate PO SCH (20:44)
[2021-10-19] MEDS: ZyrTEC TAB 10 MG PO SCH (20:44)
[2021-10-20] MEDS: TUSSIONEX PENNKINETIC SUSP PO PRN ×2 (00:56→22:21)
[2021-10-20] MEDS ORDERED: NS 1/2 1,000 ML IV 1,000 ML IV ONE (04:12)
[2021-10-20] MEDS: SOLU-Medrol 40 MG VIAL IVP SCH (05:32)
[2021-10-20] MEDS: NovoLIN R (or HumuLIN R) SUBCUT PRN ×4 (05:33→22:21)
[2021-10-20] MEDS: NS 1/2 1,000 ML IV 1,000 ML IV SCH ×4 (05:33→22:21)
[2021-10-20 06:24] LABS: BASOPHILS % (AUTO) 0.1 % (0.2-1.0); HEMATOCRIT 39.4 % (42.0-54.0); HEMOGLOBIN 13.9 g/dL (13.5-18.0); LYMPHOCYTES # (AUTO) 0.7 X10^3/uL (1.3-2.9); LYMPHOCYTES % (AUTO) 6.2 % (21.0-51.0); MEAN CORPUSCULAR HEMOGLOBIN 33.2 pg (27.0-34.0); MEAN CORPUSCULAR HGB CONC 35.3 g/dL (33.0-35.0); MEAN CORPUSCULAR VOLUME 93.8 fL (80.0-100.0); MEAN PLATELET VOLUME 6.9 fL (7.4-11.0); MONOCYTES # (AUTO) 0.5 x10^3/uL (0.3-0.8); MONOCYTES % (AUTO) 4.3 % (0.0-13.0); NEUTROPHILS # (AUTO) 10.1 x10^3/uL (2.2-4.8); NEUTROPHILS % (AUTO) 89.4 % (42.0-75.0); RED CELL DISTRIBUTION WIDTH 13.8 % (11.6-16.5); WHITE BLOOD COUNT 11.3 X10^3/uL (3.6-10.0)
--- NOTE | 2021-10-20 06:44 | RAD ---
HISTORYShortness of breathSTUDYChest AP [id number]/14/2022FINDINGSThe heart remains enlarged. No congestive heart failure is noted. The ezequiel are normal. Lungs remain mildly hyperinflated. No acute alveolar infiltrates or areas of consolidation identified. No pleural effusions are identified. Bony thorax is unremarkable.IMPRESSIONNo significant change from the prior examinationElectronically signed by: RAVEN HOUSTON (Oct 20, 2021 06:43:44)
[2021-10-20 06:47] LABS: ALBUMIN 3.2 g/dL (3.4-5.0); CALCIUM 8.6 mg/dL (8.5-10.1); CARBON DIOXIDE 28.6 mmol/L (21-32); COR CA(FOR HYPOALB) 9.2 mg/dL (8.5-10.1); CREATININE 2.03 mg/dL (0.70-1.30); TOTAL PROTEIN 6.8 g/dL (6.4-8.2)
[2021-10-20] MEDS: LEVAQUIN PREMIX IV 500 MG 500 MG/100 ML BAG IV SCH (08:26)
[2021-10-20] MEDS: VSL#3 PO SCH (08:28)
[2021-10-20] MEDS: ZINC SULFATE PO SCH (08:28)
[2021-10-20] MEDS: SINGULAIR TAB 10 MG PO SCH (08:28)
[2021-10-20] MEDS: ROBITUSSIN DM PO SCH ×4 (08:28→20:18)
[2021-10-20] MEDS: PriLOSEC PO SCH ×2 (08:28→20:19)
[2021-10-20] MEDS: FLOMAX PO SCH ×2 (08:28→20:18)
[2021-10-20] MEDS: COREG TAB 12.5 MG PO SCH ×2 (08:29→20:18)
[2021-10-20] MEDS: JANUVIA PO SCH (08:29)
[2021-10-20] MEDS: SYNTHROID 100 mcg TAB PO SCH (08:30)
[2021-10-20] MEDS: VITAMIN D3 125 mcg (5,000 UNITS) PO SCH (08:34)
[2021-10-20] MEDS: PULMICORT NEB TX 0.5 MG NEB SCH ×2 (09:05→20:39)
[2021-10-20] MEDS: DUONEB 0.5 MG/3 MG (3 mL) NEB SCH ×4 (09:05→20:39)
[2021-10-20] MEDS: DIFLUCAN PO SCH (17:45)
[2021-10-20] MEDS: ZyrTEC TAB 10 MG PO SCH (20:18)
[2021-10-20] MEDS: SNACK - Diabetic Appropriate PO SCH (20:30)
[2021-10-20] MEDS ORDERED: SOLU-Medrol 40 MG VIAL IVP ONE (21:00)
[2021-10-20] MEDS: MELATONIN PO SCH (22:20)
[2021-10-21] MEDS ORDERED: ROBITUSSIN DM PO ONE (04:29)
[2021-10-21] MEDS ORDERED: NS 1/2 1,000 ML IV 1,000 ML IV ONE (05:25)
[2021-10-21] MEDS: NovoLIN R (or HumuLIN R) SUBCUT PRN ×2 (05:31→11:01)
[2021-10-21 06:29] LABS: BASOPHILS % (AUTO) 0.2 % (0.2-1.0); HEMATOCRIT 42.6 % (42.0-54.0); HEMOGLOBIN 14.7 g/dL (13.5-18.0); LYMPHOCYTES # (AUTO) 0.5 X10^3/uL (1.3-2.9); LYMPHOCYTES % (AUTO) 4.1 % (21.0-51.0); MEAN CORPUSCULAR HEMOGLOBIN 32.7 pg (27.0-34.0); MEAN CORPUSCULAR HGB CONC 34.5 g/dL (33.0-35.0); MEAN CORPUSCULAR VOLUME 94.7 fL (80.0-100.0); MONOCYTES # (AUTO) 0.2 x10^3/uL (0.3-0.8); MONOCYTES % (AUTO) 1.7 % (0.0-13.0); NEUTROPHILS # (AUTO) 11.1 x10^3/uL (2.2-4.8); RED CELL DISTRIBUTION WIDTH 13.9 % (11.6-16.5); WHITE BLOOD COUNT 11.8 X10^3/uL (3.6-10.0)
[2021-10-21 06:39] LABS: CALCIUM 8.4 mg/dL (8.5-10.1); CARBON DIOXIDE 25.7 mmol/L (21-32); CREATININE 1.99 mg/dL (0.70-1.30)
[2021-10-21 07:06] LABS: ALBUMIN 3.3 g/dL (3.4-5.0); TOTAL PROTEIN 7.1 g/dL (6.4-8.2)
--- NOTE | 2021-10-21 07:11 | RAD ---
HISTORYSOB COPD CHFSTUDYAP [id number]/15/2022FINDINGSSimilar cardiomegaly, pulmonary pulmonary inflation and chronic-appearing interstitial changes in the lung bases. There is no evidence for developing airspace consolidation, pleural fluid or pneumothorax.IMPRESSIONNo change.Electronically signed by: SHE MCLAIN (Oct 21, 2021 07:10:26)
[2021-10-21 07:33] LABS: BAND NEUTROPHILS % 1 % (0-10)
[2021-10-21 07:34] LABS: PLATELET MORPHOLOGY COMMENT NORMAL (NORMAL)
[2021-10-21] MEDS: DUONEB 0.5 MG/3 MG (3 mL) NEB SCH ×4 (08:28→20:11)
[2021-10-21] MEDS: PULMICORT NEB TX 0.5 MG NEB SCH ×2 (08:28→20:11)
[2021-10-21] MEDS: LEVAQUIN PREMIX IV 500 MG 500 MG/100 ML BAG IV SCH (09:09)
[2021-10-21] MEDS: FLOMAX PO SCH ×3 (09:10→22:35)
[2021-10-21] MEDS: PriLOSEC PO SCH ×2 (09:10→20:33)
[2021-10-21] MEDS: ROBITUSSIN DM PO SCH ×4 (09:10→20:33)
[2021-10-21] MEDS: SINGULAIR TAB 10 MG PO SCH (09:10)
[2021-10-21] MEDS: ZINC SULFATE PO SCH (09:10)
[2021-10-21] MEDS: VSL#3 PO SCH (09:10)
[2021-10-21] MEDS: ASPIRIN 81 MG CHEWTAB PO SCH ×2 (09:11→09:21)
[2021-10-21] MEDS: COREG TAB 12.5 MG PO SCH ×2 (09:11→20:33)
[2021-10-21] MEDS: JANUVIA PO SCH (09:13)
[2021-10-21] MEDS: DIFLUCAN PO SCH (09:13)
[2021-10-21] MEDS: VITAMIN D3 125 mcg (5,000 UNITS) PO SCH (09:13)
[2021-10-21] MEDS: SYNTHROID 100 mcg TAB PO SCH (09:14)
[2021-10-21] MEDS: NS 1/2 1,000 ML IV 1,000 ML IV SCH (12:57)
[2021-10-21 14:47] LABS: ABG ALLEN TEST POS; ABG BASE EXCESS -1.1 mmol/L (-2.0-2.0); ABG HCO3 25.3 mmol/L (22-26)
[2021-10-21] MEDS: TESSALON PERLES PO PRN ×2 (15:15→23:46)
[2021-10-21] MEDS: ZyrTEC TAB 10 MG PO SCH (20:33)
[2021-10-21] MEDS: SNACK - Diabetic Appropriate PO SCH (20:35)
[2021-10-21] MEDS: MELATONIN PO SCH (22:36)
[2021-10-21] MEDS: TUSSIONEX PENNKINETIC SUSP PO PRN (22:36)
[2021-10-22] MEDS: TESSALON PERLES PO PRN ×2 (05:41→21:49)
[2021-10-22 06:40] LABS: BASOPHILS % (AUTO) 0.1 % (0.2-1.0); EOSINOPHILS # (AUTO) 0.1 x10^3/uL (0.0-0.2); EOSINOPHILS % (AUTO) 0.6 % (0.9-2.9); HEMATOCRIT 40.6 % (42.0-54.0); HEMOGLOBIN 13.9 g/dL (13.5-18.0); LYMPHOCYTES # (AUTO) 1.6 X10^3/uL (1.3-2.9); LYMPHOCYTES % (AUTO) 13.9 % (21.0-51.0); MEAN CORPUSCULAR HEMOGLOBIN 32.9 pg (27.0-34.0); MEAN CORPUSCULAR HGB CONC 34.2 g/dL (33.0-35.0); MEAN CORPUSCULAR VOLUME 96.2 fL (80.0-100.0); MEAN PLATELET VOLUME 6.8 fL (7.4-11.0); MONOCYTES # (AUTO) 0.7 x10^3/uL (0.3-0.8); MONOCYTES % (AUTO) 6.1 % (0.0-13.0); NEUTROPHILS # (AUTO) 9.1 x10^3/uL (2.2-4.8); NEUTROPHILS % (AUTO) 79.3 % (42.0-75.0); RED BLOOD COUNT 4.22 X10^6/uL (4.7-6.0); RED CELL DISTRIBUTION WIDTH 14.2 % (11.6-16.5); WHITE BLOOD COUNT 11.4 X10^3/uL (3.6-10.0)
[2021-10-22 06:57] LABS: ALBUMIN 3.1 g/dL (3.4-5.0); CARBON DIOXIDE 29.7 mmol/L (21-32); COR CA(FOR HYPOALB) 8.7 mg/dL (8.5-10.1); CREATININE 1.94 mg/dL (0.70-1.30); TOTAL PROTEIN 6.4 g/dL (6.4-8.2)
[2021-10-22] MEDS: NS 1/2 1,000 ML IV 1,000 ML IV SCH ×3 (07:07→23:17)
[2021-10-22] MEDS: PULMICORT NEB TX 0.5 MG NEB SCH ×2 (08:15→21:24)
[2021-10-22] MEDS: DUONEB 0.5 MG/3 MG (3 mL) NEB SCH ×4 (08:15→21:24)
[2021-10-22] MEDS: ROBITUSSIN DM PO SCH ×4 (10:18→20:10)
[2021-10-22] MEDS: LEVAQUIN PREMIX IV 500 MG 500 MG/100 ML BAG IV SCH (10:18)
[2021-10-22] MEDS: VITAMIN D3 125 mcg (5,000 UNITS) PO SCH (10:19)
[2021-10-22] MEDS: SINGULAIR TAB 10 MG PO SCH (10:19)
[2021-10-22] MEDS: VSL#3 PO SCH (10:19)
[2021-10-22] MEDS: ZINC SULFATE PO SCH (10:19)
[2021-10-22] MEDS: PriLOSEC PO SCH ×2 (10:19→20:10)
[2021-10-22] MEDS: COREG TAB 12.5 MG PO SCH ×2 (10:20→20:10)
[2021-10-22] MEDS: FLOMAX PO SCH ×3 (10:20→20:38)
[2021-10-22] MEDS: DIFLUCAN PO SCH (10:22)
[2021-10-22] MEDS: SYNTHROID 100 mcg TAB PO SCH (10:22)
[2021-10-22] MEDS: JANUVIA PO SCH (10:22)
[2021-10-22] MEDS: ASPIRIN 81 MG CHEWTAB PO SCH (10:56)
[2021-10-22] MEDS ORDERED: HALLS COUGH DROPS MT PRN (14:23)
--- NOTE | 2021-10-22 14:57 | RAD ---
HISTORYSOBSTUDYPortable AP [id number]/16/2022FINDINGSMild stable cardiac enlargement with unchanged extent and distribution of bibasal interstitial changes that are likely chronic. Persistent hyperaeration of the upper lobes. No developing consolidation, pulmonary edema or pleural fluid.IMPRESSIONNo interval change or acute abnormality demonstrated.Electronically signed by: SHE MCLAIN (Oct 22, 2021 14:55:33)
[2021-10-22] MEDS ORDERED: IPRATROPIUM BROMIDE 42 MCG/SPRAY ENOSTRIL SCH (15:00)
[2021-10-22] MEDS ORDERED: FLONASE NASAL SPRAY ENOSTRIL ONE (17:30)
[2021-10-22] MEDS ORDERED: FLONASE NASAL SPRAY ENOSTRIL SCH (18:00)
[2021-10-22] MEDS ORDERED: NS 1/2 1,000 ML IV 1,000 ML IV ONE (18:23)
[2021-10-22] MEDS: ZyrTEC TAB 10 MG PO SCH (20:10)
[2021-10-22] MEDS: NovoLIN R (or HumuLIN R) SUBCUT PRN (20:11)
[2021-10-22] MEDS: SNACK - Diabetic Appropriate PO SCH (20:37)
[2021-10-22] MEDS: MELATONIN PO SCH (23:26)
[2021-10-22] MEDS: TUSSIONEX PENNKINETIC SUSP PO PRN (23:27)
[2021-10-23] MEDS ORDERED: MAALOX or MYLANTA PO PRN (02:30)
[2021-10-23 06:24] LABS: BASOPHILS % (AUTO) 0.3 % (0.2-1.0); EOSINOPHILS # (AUTO) 0.1 x10^3/uL (0.0-0.2); EOSINOPHILS % (AUTO) 1.3 % (0.9-2.9); HEMATOCRIT 38.4 % (42.0-54.0); HEMOGLOBIN 13.5 g/dL (13.5-18.0); LYMPHOCYTES # (AUTO) 1.4 X10^3/uL (1.3-2.9); LYMPHOCYTES % (AUTO) 12.4 % (21.0-51.0); MEAN CORPUSCULAR HEMOGLOBIN 33.6 pg (27.0-34.0); MEAN CORPUSCULAR HGB CONC 35.2 g/dL (33.0-35.0); MEAN CORPUSCULAR VOLUME 95.3 fL (80.0-100.0); MEAN PLATELET VOLUME 6.9 fL (7.4-11.0); MONOCYTES # (AUTO) 0.6 x10^3/uL (0.3-0.8); MONOCYTES % (AUTO) 5.8 % (0.0-13.0); NEUTROPHILS # (AUTO) 8.8 x10^3/uL (2.2-4.8); NEUTROPHILS % (AUTO) 80.2 % (42.0-75.0); RED BLOOD COUNT 4.03 X10^6/uL (4.7-6.0); RED CELL DISTRIBUTION WIDTH 13.9 % (11.6-16.5)
[2021-10-23 06:31] LABS: ALBUMIN 2.9 g/dL (3.4-5.0); CALCIUM 8.1 mg/dL (8.5-10.1); CREATININE 1.86 mg/dL (0.70-1.30)
--- NOTE | 2021-10-23 07:24 | RAD ---
HISTORYShortness of breathSTUDYChest AP [id number]/17/2022FINDINGSHear t is upper limits normal in size. No congestive heart failure is noted. No acute alveolar infiltrates or areas of consolidation are identified. Mild hyperinflation is present. Mild chronic interstitial lung changes are present. No pleural effusions or pneumothoraces are identified. Bony thorax is unremarkable.IMPRESSIONNo significant change mild chronic interstitial lung disease and hyperinflationNo acute infiltratesElectronically signed by: RAVEN HOUSTON (Oct 23, 2021 07:23:30)
[2021-10-23] MEDS: DUONEB 0.5 MG/3 MG (3 mL) NEB SCH ×3 (08:05→20:05)
[2021-10-23] MEDS: PULMICORT NEB TX 0.5 MG NEB SCH ×2 (08:05→20:05)
[2021-10-23] MEDS: DIFLUCAN PO SCH (09:00)
[2021-10-23] MEDS: COREG TAB 12.5 MG PO SCH ×2 (09:00→20:53)
[2021-10-23] MEDS ORDERED: LEVAQUIN PREMIX IV 750 MG 750 MG/150 ML BAG IV SCH (09:00)
[2021-10-23] MEDS: JANUVIA PO SCH (09:01)
[2021-10-23] MEDS: SYNTHROID 100 mcg TAB PO SCH (09:03)
[2021-10-23] MEDS: SINGULAIR TAB 10 MG PO SCH (09:03)
[2021-10-23] MEDS: ROBITUSSIN DM PO SCH (09:03)
[2021-10-23] MEDS: PriLOSEC PO SCH ×2 (09:03→20:54)
[2021-10-23] MEDS: VSL#3 PO SCH (09:04)
[2021-10-23] MEDS: VITAMIN D3 125 mcg (5,000 UNITS) PO SCH (09:04)
[2021-10-23] MEDS: ZINC SULFATE PO SCH (09:04)
[2021-10-23] MEDS: TESSALON PERLES PO PRN (09:05)
[2021-10-23] MEDS: FLOMAX PO SCH ×2 (09:06→14:57)
[2021-10-23] MEDS ORDERED: DUONEB 0.5 MG/3 MG (3 mL) NEB ONE (11:47)
[2021-10-23] MEDS: NovoLIN R (or HumuLIN R) SUBCUT PRN ×3 (12:00→21:46)
[2021-10-23] MEDS: NYSTATIN SUSP PO SCH ×4 (12:20→20:54)
[2021-10-23] MEDS: SOLU-Medrol 40 MG VIAL IVP SCH ×3 (12:21→22:32)
[2021-10-23] MEDS: ROBITUSSIN CF SYRUP PO SCH ×4 (12:21→21:32)
[2021-10-23] MEDS: NS 1/2 1,000 ML IV 1,000 ML IV SCH (14:48)
[2021-10-23] MEDS ORDERED: PULMICORT NEB TX 0.5 MG NEB ONE (19:04)
[2021-10-23] MEDS: SNACK - Diabetic Appropriate PO SCH (20:53)
[2021-10-23] MEDS: KLONOPIN TAB 1 MG PO SCH (20:53)
[2021-10-23] MEDS: ZyrTEC TAB 10 MG PO SCH (20:54)
[2021-10-23] MEDS: MELATONIN PO SCH (20:54)
[2021-10-24] MEDS: TUSSIONEX PENNKINETIC SUSP PO PRN (03:16)
[2021-10-24] MEDS: DUONEB 0.5 MG/3 MG (3 mL) NEB SCH ×3 (05:05→20:15)
[2021-10-24] MEDS: SOLU-Medrol 40 MG VIAL IVP SCH ×3 (05:20→22:29)
[2021-10-24] MEDS: NS 1/2 1,000 ML IV 1,000 ML IV SCH ×2 (05:20→14:24)
[2021-10-24 05:34] LABS: BASOPHILS % (AUTO) 0.2 % (0.2-1.0); EOSINOPHILS % (AUTO) 0.1 % (0.9-2.9); HEMATOCRIT 41.7 % (42.0-54.0); HEMOGLOBIN 14.4 g/dL (13.5-18.0); LYMPHOCYTES # (AUTO) 0.5 X10^3/uL (1.3-2.9); LYMPHOCYTES % (AUTO) 4.1 % (21.0-51.0); MEAN CORPUSCULAR HEMOGLOBIN 32.9 pg (27.0-34.0); MEAN CORPUSCULAR HGB CONC 34.5 g/dL (33.0-35.0); MEAN CORPUSCULAR VOLUME 95.3 fL (80.0-100.0); MONOCYTES # (AUTO) 0.1 x10^3/uL (0.3-0.8); MONOCYTES % (AUTO) 1.1 % (0.0-13.0); NEUTROPHILS # (AUTO) 11.7 x10^3/uL (2.2-4.8); NEUTROPHILS % (AUTO) 94.5 % (42.0-75.0); RED BLOOD COUNT 4.37 X10^6/uL (4.7-6.0); RED CELL DISTRIBUTION WIDTH 13.5 % (11.6-16.5); WHITE BLOOD COUNT 12.3 X10^3/uL (3.6-10.0)
[2021-10-24 05:50] LABS: PLATELET MORPHOLOGY COMMENT NORMAL (NORMAL)
--- NOTE | 2021-10-24 06:04 | RAD ---
HISTORYCOPD exacerbation, shortness of breathSTUDYChest AP [id number]/18/2022FINDINGSHear t is enlarged. No congestive heart failure is noted. The ezequiel are normal. Lungs are generally mildly hyperinflated. Mild chronic interstitial lung changes are present. There is a new subtle peripheral infiltrate in the right lower lobe. No pleural effusions are identified. Bony thorax is unremarkable.IMPRESSIONNew peripheral right lower lobe infiltrateNo change hyperinflation and chronic interstitial lung changes consistent with COPD in the appropriate clinical settingElectronically signed by: RAVEN HOUSTON (Oct 24, 2021 06:03:03)
[2021-10-24 06:20] LABS: ALBUMIN 2.9 g/dL (3.4-5.0); CALCIUM 8.1 mg/dL (8.5-10.1); CARBON DIOXIDE 26.3 mmol/L (21-32); CREATININE 1.68 mg/dL (0.70-1.30); TOTAL PROTEIN 6.3 g/dL (6.4-8.2)
[2021-10-24] MEDS: NovoLIN R (or HumuLIN R) SUBCUT PRN ×4 (07:05→20:40)
[2021-10-24] MEDS: PULMICORT NEB TX 0.5 MG NEB SCH ×2 (08:38→20:30)
[2021-10-24] MEDS: VSL#3 PO SCH (09:03)
[2021-10-24] MEDS: COREG TAB 12.5 MG PO SCH ×2 (09:04→20:40)
[2021-10-24] MEDS: DIFLUCAN PO SCH (09:04)
[2021-10-24] MEDS: JANUVIA PO SCH (09:05)
[2021-10-24] MEDS: SINGULAIR TAB 10 MG PO SCH (09:06)
[2021-10-24] MEDS: SYNTHROID 100 mcg TAB PO SCH (09:06)
[2021-10-24] MEDS: NYSTATIN SUSP PO SCH ×4 (09:10→20:39)
[2021-10-24] MEDS: PriLOSEC PO SCH ×2 (09:11→20:39)
[2021-10-24] MEDS: ROBITUSSIN CF SYRUP PO SCH (09:11)
[2021-10-24] MEDS: VITAMIN D3 125 mcg (5,000 UNITS) PO SCH (09:11)
[2021-10-24] MEDS: ZINC SULFATE PO SCH (09:12)
[2021-10-24] MEDS: FLOMAX PO SCH ×2 (09:15→14:17)
--- NOTE | 2021-10-24 10:37 | PCM.PROG ---
Progress Note - Progress Note for Day of Date of Exam: 10/23/21 - Subjective Subjective: IS CURRENTLY INPATIENT STATUS FOR TREATMENT OF BRONCHOPNEUMONIA, RSV, AND COPD EXACERBATION. HE HAS A HX OF THN, CHF, AND RENAL FAILURE. TODAY, HE IS ALERT AND ORIENTED, SITTING UP IN BED ON MORNING ROUNDS. HE COMPLAINS OF INCREASED SHORTNESS OF BREATH THIS MORNING. HE COMPLAINS OF COUGH, BUT HAS BEEN UNABLE TO COUGH UP MUCH. HIS VOICE IS HOARSE. ON EXAMINATION, HEART IS REGULAR IN RATE AND RHYTHM. BILATERAL LUNGS ARE NOTE WITH EXPIRATORY WHEEZING. ABDOMEN IS OBESE, NON-TENDER. NORMAL BOWEL SOUNDS NOTED IN ALL QUADRNATS. NO UPPER OR LOWER EXTREMITY EDEMA NOTED. HE IS CURRENTLY UTILIZING OXYGEN VIA NASAL CANNULA AT 3 LPM. HIS OXYGEN SATURATIONS HAVE REMAINED IN THE 90s. HIS VITALS THIS MORNING ARE: 97.9-100-20-95%-158/69. LABS WERE OBTAINED. WBC 11.0, RBC 4.03, HGB 13.5, HCT 38.4, PLT COUNT 180, SODIUM 136, POTASSIUM 4.6, CHLORIDE 102, BUN 35, CREATININE 1.86, GLUCOSE 124, CALCIUM 8.1, AST 13, ALT 20, ALK PHOS 45, TOTAL PROTEIN 6.0, ALBUMIN 2.9. BLOOD CULTURES ARE PENDING. SPUTUM CULTURE IS POSITIVE FOR GROWTH OF ENTEROBACTER AEROGENES. A CHEST XRAY WAS OBTAINED AND REVEALED: Heart is upper limits normal in size. No congestive heart failure is noted. No acute alveolar infiltrates or areas of consolidation are identified. Mild hyperinflation is present. Mild chronic interstitial lung changes are present. No pleural effusions or pneumothoraces are identified. Bony thorax is unremarkable. HE IS CURRENTLY RECEIVING 1/2NS AT 20 ML/HR, LEVAQUIN 750MG IV Q48H, DUONEBS TID, PULMICORT NEBS BID, TUSSIONEX 5ML PO Q12H PRN, ROBITUSSIN DM 10ML PO QID, TESSALON PERLES 100MG PO TID PRN, HUMULIN R SLIDING SCALE, OTBS ACHS, AND HIS HOME MEDICATIONS WERE RESUMED. TODAY, WE WILL RESTART SOLU-MEDROL 20MG IV Q8H AND ADD CLONAZEPAM 1MG PO HS, DIFLUCAN 100MG PO DAILY AND NYSTATIN SWISH AND SWALLOW 5ML PO QID. OTHERWISE, WE PLAN TO FOLLOW UP WITH AM LABS AND CONTINUE TO MONITOR. TIME SPENT ON CLINICAL ASSESSMENT, REVIWING LABS AND IMAGING, DECISION MAKING, AND DOCUMENTATION GREATER THAN 45 MINUTES. - Past Medical Family Social History Past Med/Fam/Surg Hx: No changes since H&P Allergies: Allergies codeine Allergy (Verified 10/18/21 15:12) latex Allergy (Verified 05/03/18 08:54) TERAMYCIN Allergy (Uncoded 05/03/18 08:54) - Review of Systems ROS: No change since H&P - Vital Signs and I&O's Vital Signs: Temperature 97.7 F Pulse Rate [Left Brachial] 92 Pulse Rate 84 Respiratory Rate 20 Blood Pressure [Right Arm] 148/69 Blood Pressure [Left Arm] 148/69 Blood Pressure 153/88 O2 Sat by Pulse Oximetry 92 Intake and Output: Intake & Output 10/21/21 10/22/21 10/23/21 10/24/21 11:59 11:59 11:59 11:59 Intake Total 3620 / 3620 2876 / 2876 2926 / 2926 3062 / 3062 Output Total 3260 / 3260 3150 / 3150 3025 / 3025 3270 / 3270 Balance 360 / 360 -274 / -274 -99 / -99 -208 / -208 - Physical Exam Oriented: Normal Eyes: Normal Ear: Normal Nose: Normal Throat: Normal Respiratory: Generalized, Diminished, Wheezes Cardiovascular: Normal : Normal Auscultation: Bowel Sounds: Normal Palpation: Normal Tenderness: Normal Skin: Normal Musculoskeletal: Normal Psychiatric: Normal Mood Description: Calm Affect: Normal Speech Pattern: Clear - Laboratory and Diagnostics Result Diagrams: 10/24/21 05:18 10/24/21 05:58 Labs: 10/18/21 14:00 Sputum - Expectorated Sputum Sputum Culture - Preliminary Enterobacter Aerogenes 10/18/21 14:00 Sputum - Expectorated Sputum - Final 10/18/21 14:15 Blood Blood Culture - Preliminary 10/18/21 13:40 Blood Blood Culture - Preliminary Laboratory WBC 12.3 X10^3/uL (3.6-10.0) H 10/24/21 05:18 RBC 4.37 X10^6/uL (4.7-6.0) L 10/24/21 05:18 Hgb 14.4 g/dL (13.5-18.0) 10/24/21 05:18 Hct 41.7 % (42.0-54.0) L 10/24/21 05:18 MCV 95.3 fL (80.0-100.0) 10/24/21 05:18 MCH 32.9 pg (27.0-34.0) 10/24/21 05:18 MCHC 34.5 g/dL (33.0-35.0) 10/24/21 05:18 RDW 13.5 % (11.6-16.5) 10/24/21 05:18 Plt Count 192 X10^3/uL (150.0-450.0) 10/24/21 05:18 Plt Count Comment Adequate (ADEQUATE) 10/24/21 05:18 MPV 7.0 fL (7.4-11.0) L 10/24/21 05:18 Neut % (Auto) 94.5 % (42.0-75.0) H 10/24/21 05:18 Lymph % (Auto) 4.1 % (21.0-51.0) L 10/24/21 05:18 [place] % (Auto) 1.1 % (0.0-13.0) 10/24/21 05:18 Eos % (Auto) 0.1 % (0.9-2.9) L 10/24/21 05:18 Baso % (Auto) 0.2 % (0.2-1.0) 10/24/21 05:18 Neut # (Auto) 11.7 x10^3/uL (2.2-4.8) H 10/24/21 05:18 Lymph # (Auto) 0.5 X10^3/uL (1.3-2.9) L 10/24/21 05:18 [place] # (Auto) 0.1 x10^3/uL (0.3-0.8) L 10/24/21 05:18 Eos # (Auto) 0.0 x10^3/uL (0.0-0.2) 10/24/21 05:18 Baso # (Auto) 0.0 X10^3/uL (0.0-0.1) 10/24/21 05:18 Absolute Nucleated RBC 0.1 /100WBC 10/24/21 05:18 Total Counted 100 10/24/21 05:18 Neutrophils % (Manual) 91 % (39-76) H 10/24/21 05:18 Band Neutrophils % 1 % (0-10) 10/21/21 05:21 Lymphocytes % (Manual) 6 % (13-43) L 10/24/21 05:18 Monocytes % (Manual) 3 % (4-9) L 10/24/21 05:18 Plt Morphology Comment Normal (NORMAL) 10/24/21 05:18 RBC Morphology Normal (NORMAL) 10/24/21 05:18 Sample Site Rrad 10/21/21 14:42 ABG pH 7.330 (7.35-7.45) L 10/21/21 14:42 ABG pCO2 48.0 mmHg (35.0-45.0) H 10/21/21 14:42 ABG pO2 55.0 mmHg (80.0-100.0) L 10/21/21 14:42 ABG HCO3 25.3 mmol/L (22-26) 10/21/21 14:42 ABG O2 Saturation 86.0 % (90-100) L 10/21/21 14:42 ABG Base Excess -1.1 mmol/L (-2.0-2.0) 10/21/21 14:42 Sudeep Test Pos 10/21/21 14:42 A-a Gradient 35.0 mmHg 10/21/21 14:42 FiO2 21.0 10/21/21 14:42 Blood Gas Comments Pt thad well elj 10/21/21 14:42 Sodium 132 mmol/L (136-145) L 10/24/21 05:58 Corrected Sodium 136 mmol/L (136-145) 10/24/21 05:58 Potassium 5.4 mmol/L (3.5-5.1) H 10/24/21 05:58 Chloride 101 mmol/L (98-107) 10/24/21 05:58 Carbon Dioxide 26.3 mmol/L (21-32) 10/24/21 05:58 BUN 32 mg/dL (7-18) H 10/24/21 05:58 Creatinine 1.68 mg/dL (0.70-1.30) H 10/24/21 05:58 Est GFR (MDRD) Af Amer 51 (>60) L 10/24/21 05:58 Est GFR (MDRD) Non-Af 42 (>60) L 10/24/21 05:58 Glucose 271 mg/dL (65-99) H 10/24/21 05:58 POC Glucose (mg/dL) 269 mg/dL (65-99) H 10/23/21 20:31 Calcium 8.1 mg/dL (8.5-10.1) L 10/24/21 05:58 Corrected Calcium 9.0 mg/dL (8.5-10.1) 10/24/21 05:58 Total Bilirubin 0.40 mg/dL (0.2-1.0) 10/24/21 05:58 AST 22 Units/L (15-37) 10/24/21 05:58 ALT 33 Units/L (12-78) 10/24/21 05:58 Alkaline Phosphatase 53 Units/L (46-116) 10/24/21 05:58 C-Reactive Protein 27.80 mg/L (0-3.0) H 10/18/21 13:40 B-Natriuretic Peptide 308 pg/mL (0-79) H 10/18/21 13:40 Total Protein 6.3 g/dL (6.4-8.2) L 10/24/21 05:58 Albumin 2.9 g/dL (3.4-5.0) L 10/24/21 05:58 Globulin 3.4 g/dL (2.5-4.5) 10/24/21 05:58 Albumin/Globulin Ratio 0.9 Ratio (1.1-2.1) L 10/24/21 05:58 Specimen Type Clean catch urine 10/18/21 13:20 Urine Color Yellow (YELLOW) 10/18/21 13:20 Urine Appearance Clear (CLEAR) 10/18/21 13:20 Urine pH 6.0 (5.0 - 8.0) 10/18/21 13:20 Ur Specific [place] 1.005 (1.000-1.030) 10/18/21 13:20 Urine Protein Negative (NEGATIVE) 10/18/21 13:20 Urine Glucose (UA) Negative (NEGATIVE) 10/18/21 13:20 Urine Ketones Negative (NEGATIVE) 10/18/21 13:20 Urine Blood Negative (NEGATIVE) 10/18/21 13:20 Urine Nitrite Negative (NEGATIVE) 10/18/21 13:20 Urine Bilirubin Negative (NEGATIVE) 10/18/21 13:20 Urine Urobilinogen Normal (NORMAL) 10/18/21 13:20 Ur Leukocyte Esterase Negative (NEGATIVE) 10/18/21 13:20 SARS-CoV-2 (PCR) Negative (NEGATIVE) 10/20/21 10:58 Influenza Type A (PCR) Negative (NEGATIVE) 10/20/21 10:58 Influenza Type B (PCR) Negative (NEGATIVE) 10/20/21 10:58 RSV (PCR) Positive (NEGATIVE) A 10/20/21 10:58 - Plan (1) Bronchopneumonia Status: Acute Plan: SUPPLEMENTAL OXYGEN, IV FLUIDS, IV ANTIBIOTICS, NEB TX, IV SOLU-MEDROL, DIFLUCAN, NYSTATIN S&S, CONTINUE HOME MEDS. MONITOR LABS AND CHEST XRAY (2) COPD exacerbation Status: Acute (3) RSV (acute bronchiolitis due to respiratory syncytial virus) Status: Acute (4) Hypoxia Status: Acute (5) Congestive heart failure Status: Chronic Qualifiers: Heart failure type: diastolic Heart failure chronicity: chronic Qualified Code(s): I50.32 - Chronic diastolic (congestive) heart failure (6) Hypertension Status: Chronic Qualifiers: Hypertension type: primary hypertension Qualified Code(s): I10 - Essential (primary) hypertension (7) Diabetes Status: Chronic Qualifiers: Diabetes mellitus type: type 2 Diabetes mellitus halfway insulin use: with halfway use Diabetes mellitus complication status: with hyperglycemia Qualified Code(s): E11.65 - Type 2 diabetes mellitus with hyperglycemia; Z79.4 - skilled nursing (current) use of insulin (8) BPH (benign prostatic hyperplasia) Status: Chronic Qualifiers: Lower urinary tract symptom presence: unspecified whether lower urinary tract symptoms present Qualified Code(s): N40.0 - Benign prostatic hyperplasia without lower urinary tract symptoms
--- NOTE | 2021-10-24 11:04 | PCM.PROG ---
Progress Note - Progress Note for Day of Date of Exam: 10/24/21 - Subjective Subjective: IS CURRENTLY INPATIENT STATUS FOR TREATMENT OF BRONCHOPNEUMONIA, RSV, AND COPD EXACERBATION. HE HAS A HX OF HTN, CHF, AND RENAL FAILURE. TODAY, HE IS ALERT AND ORIENTED, SITTING UP IN BED ON MORNING ROUNDS. HE DENIES SIGNIFICANT IMPROVEMENT IN COUGH OR SHORTNESS OF BREATH THIS MORNING. ON EXAMINATION, HEART IS REGULAR IN RATE AND RHYTHM. BILATERAL LUNGS ARE NOTE WITH EXPIRATORY WHEEZING. ABDOMEN IS OBESE, NON-TENDER. NORMAL BOWEL SOUNDS NOTED IN ALL QUADRNATS. NO UPPER OR LOWER EXTREMITY EDEMA NOTED. HE IS CURRENTLY UTILIZING OXYGEN VIA NASAL CANNULA AT 3 LPM. HIS OXYGEN SATURATIONS HAVE REMAINED IN THE 90s. HIS VITALS THIS MORNING ARE: 97.7-92-20-94%-148/69. LABS WERE OBTAINED. WBC 12.3, RBC 4.37, HGB 14.4, HCT 41.7, PLT COUNT 192, SODIUM 132, POTASSIUM 5.4, BUN 32, CREATININE 1.68, GLUCOSE 271, CALCIUM 8.1, AST 22, ALT 33, ALK PHOS 53, TOTAL PROTEIN 6.3, ALBUMIN 2.9. BLOOD CULTURES ARE PENDING. SPUTUM CULTURE IS POSITIVE FOR GROWTH OF ENTEROBACTER AEROGENES. A CHEST XRAY WAS OBTAINED AND REVEALED: New peripheral right lower lobe infiltrate. No change hyperinflation and chronic interstitial lung changes consistent with COPD in the appropriate clinical setting. HE IS CURRENTLY RECEIVING 1/2NS AT 20 ML/HR, LEVAQUIN 750MG IV Q48H, DUONEBS TID, PULMICORT NEBS BID, SOLU-MEDROL 20MG IV Q8H, CLONAZEPAM 1MG PO HS, DIFLUCAN 100MG PO DAILY, NYSTATIN SWISH AND SWALLOW 5ML PO QID, TUSSIONEX 5ML PO Q12H PRN, ROBITUSSIN DM 10ML PO QID, TESSALON PERLES 100MG PO TID PRN, HUMULIN R SLIDING SCALE, OTBS ACHS, AND HIS HOME MEDICATIONS WERE RESUMED. TODAY, WE WILL ORDER FOR HIM TO WEAR THE SMART VEST SOME THROUGHOUT THE DAY. OTHERWISE, WE PLAN TO FOLLOW UP WITH AM LABS AND C ONTINUE TO MONITOR. TIME SPENT ON CLINICAL ASSESSMENT, REVIWING LABS AND IMAGING, DECISION MAKING, AND DOCUMENTATION GREATER THAN 45 MINUTES. - Past Medical Family Social History Past Med/Fam/Surg Hx: No changes since H&P Allergies: Allergies codeine Allergy (Verified 10/18/21 15:12) latex Allergy (Verified 05/03/18 08:54) TERAMYCIN Allergy (Uncoded 05/03/18 08:54) - Review of Systems ROS: No change since H&P - Vital Signs and I&O's Vital Signs: Temperature 97.7 F Pulse Rate [Left Brachial] 92 Pulse Rate 84 Respiratory Rate 20 Blood Pressure [Right Arm] 148/69 Blood Pressure [Left Arm] 148/69 Blood Pressure 153/88 O2 Sat by Pulse Oximetry 92 Intake and Output: Intake & Output 10/21/21 10/22/21 10/23/21 10/24/21 11:59 11:59 11:59 11:59 Intake Total 3620 / 3620 2876 / 2876 2926 / 2926 3062 / 3062 Output Total 3260 / 3260 3150 / 3150 3025 / 3025 3270 / 3270 Balance 360 / 360 -274 / -274 -99 / -99 -208 / -208 - Physical Exam Oriented: Normal Eyes: Normal Ear: Normal Nose: Normal Throat: Normal Respiratory: Generalized, Diminished, Wheezes Cardiovascular: Normal : Normal Auscultation: Bowel Sounds: Normal Palpation: Normal Tenderness: Normal Skin: Normal Musculoskeletal: Normal Psychiatric: Normal Mood Description: Calm Affect: Normal Speech Pattern: Clear - Laboratory and Diagnostics Result Diagrams: 10/24/21 05:18 10/24/21 05:58 Labs: 10/18/21 14:00 Sputum - Expectorated Sputum Sputum Culture - Preliminary Enterobacter Aerogenes 10/18/21 14:00 Sputum - Expectorated Sputum - Final 10/18/21 14:15 Blood Blood Culture - Preliminary 10/18/21 13:40 Blood Blood Culture - Preliminary Laboratory WBC 12.3 X10^3/uL (3.6-10.0) H 10/24/21 05:18 RBC 4.37 X10^6/uL (4.7-6.0) L 10/24/21 05:18 Hgb 14.4 g/dL (13.5-18.0) 10/24/21 05:18 Hct 41.7 % (42.0-54.0) L 10/24/21 05:18 MCV 95.3 fL (80.0-100.0) 10/24/21 05:18 MCH 32.9 pg (27.0-34.0) 10/24/21 05:18 MCHC 34.5 g/dL (33.0-35.0) 10/24/21 05:18 RDW 13.5 % (11.6-16.5) 10/24/21 05:18 Plt Count 192 X10^3/uL (150.0-450.0) 10/24/21 05:18 Plt Count Comment Adequate (ADEQUATE) 10/24/21 05:18 MPV 7.0 fL (7.4-11.0) L 10/24/21 05:18 Neut % (Auto) 94.5 % (42.0-75.0) H 10/24/21 05:18 Lymph % (Auto) 4.1 % (21.0-51.0) L 10/24/21 05:18 [place] % (Auto) 1.1 % (0.0-13.0) 10/24/21 05:18 Eos % (Auto) 0.1 % (0.9-2.9) L 10/24/21 05:18 Baso % (Auto) 0.2 % (0.2-1.0) 10/24/21 05:18 Neut # (Auto) 11.7 x10^3/uL (2.2-4.8) H 10/24/21 05:18 Lymph # (Auto) 0.5 X10^3/uL (1.3-2.9) L 10/24/21 05:18 [place] # (Auto) 0.1 x10^3/uL (0.3-0.8) L 10/24/21 05:18 Eos # (Auto) 0.0 x10^3/uL (0.0-0.2) 10/24/21 05:18 Baso # (Auto) 0.0 X10^3/uL (0.0-0.1) 10/24/21 05:18 Absolute Nucleated RBC 0.1 /100WBC 10/24/21 05:18 Total Counted 100 10/24/21 05:18 Neutrophils % (Manual) 91 % (39-76) H 10/24/21 05:18 Band Neutrophils % 1 % (0-10) 10/21/21 05:21 Lymphocytes % (Manual) 6 % (13-43) L 10/24/21 05:18 Monocytes % (Manual) 3 % (4-9) L 10/24/21 05:18 Plt Morphology Comment Normal (NORMAL) 10/24/21 05:18 RBC Morphology Normal (NORMAL) 10/24/21 05:18 Sample Site Rrad 10/21/21 14:42 ABG pH 7.330 (7.35-7.45) L 10/21/21 14:42 ABG pCO2 48.0 mmHg (35.0-45.0) H 10/21/21 14:42 ABG pO2 55.0 mmHg (80.0-100.0) L 10/21/21 14:42 ABG HCO3 25.3 mmol/L (22-26) 10/21/21 14:42 ABG O2 Saturation 86.0 % (90-100) L 10/21/21 14:42 ABG Base Excess -1.1 mmol/L (-2.0-2.0) 10/21/21 14:42 Sudeep Test Pos 10/21/21 14:42 A-a Gradient 35.0 mmHg 10/21/21 14:42 FiO2 21.0 10/21/21 14:42 Blood Gas Comments Pt thad well elj 10/21/21 14:42 Sodium 132 mmol/L (136-145) L 10/24/21 05:58 Corrected Sodium 136 mmol/L (136-145) 10/24/21 05:58 Potassium 5.4 mmol/L (3.5-5.1) H 10/24/21 05:58 Chloride 101 mmol/L (98-107) 10/24/21 05:58 Carbon Dioxide 26.3 mmol/L (21-32) 10/24/21 05:58 BUN 32 mg/dL (7-18) H 10/24/21 05:58 Creatinine 1.68 mg/dL (0.70-1.30) H 10/24/21 05:58 Est GFR (MDRD) Af Amer 51 (>60) L 10/24/21 05:58 Est GFR (MDRD) Non-Af 42 (>60) L 10/24/21 05:58 Glucose 271 mg/dL (65-99) H 10/24/21 05:58 POC Glucose (mg/dL) 292 mg/dL (65-99) H 10/24/21 10:52 Calcium 8.1 mg/dL (8.5-10.1) L 10/24/21 05:58 Corrected Calcium 9.0 mg/dL (8.5-10.1) 10/24/21 05:58 Total Bilirubin 0.40 mg/dL (0.2-1.0) 10/24/21 05:58 AST 22 Units/L (15-37) 10/24/21 05:58 ALT 33 Units/L (12-78) 10/24/21 05:58 Alkaline Phosphatase 53 Units/L (46-116) 10/24/21 05:58 C-Reactive Protein 27.80 mg/L (0-3.0) H 10/18/21 13:40 B-Natriuretic Peptide 308 pg/mL (0-79) H 10/18/21 13:40 Total Protein 6.3 g/dL (6.4-8.2) L 10/24/21 05:58 Albumin 2.9 g/dL (3.4-5.0) L 10/24/21 05:58 Globulin 3.4 g/dL (2.5-4.5) 10/24/21 05:58 Albumin/Globulin Ratio 0.9 Ratio (1.1-2.1) L 10/24/21 05:58 Specimen Type Clean catch urine 10/18/21 13:20 Urine Color Yellow (YELLOW) 10/18/21 13:20 Urine Appearance Clear (CLEAR) 10/18/21 13:20 Urine pH 6.0 (5.0 - 8.0) 10/18/21 13:20 Ur Specific [place] 1.005 (1.000-1.030) 10/18/21 13:20 Urine Protein Negative (NEGATIVE) 10/18/21 13:20 Urine Glucose (UA) Negative (NEGATIVE) 10/18/21 13:20 Urine Ketones Negative (NEGATIVE) 10/18/21 13:20 Urine Blood Negative (NEGATIVE) 10/18/21 13:20 Urine Nitrite Negative (NEGATIVE) 10/18/21 13:20 Urine Bilirubin Negative (NEGATIVE) 10/18/21 13:20 Urine Urobilinogen Normal (NORMAL) 10/18/21 13:20 Ur Leukocyte Esterase Negative (NEGATIVE) 10/18/21 13:20 SARS-CoV-2 (PCR) Negative (NEGATIVE) 10/20/21 10:58 Influenza Type A (PCR) Negative (NEGATIVE) 10/20/21 10:58 Influenza Type B (PCR) Negative (NEGATIVE) 10/20/21 10:58 RSV (PCR) Positive (NEGATIVE) A 10/20/21 10:58 - Plan (1) Bronchopneumonia Status: Acute Plan: SUPPLEMENTAL OXYGEN, IV FLUIDS, IV ANTIBIOTICS, NEB TX, IV SOLU-MEDROL, DIFLUCAN, NYSTATIN S&S, CONTINUE HOME MEDS. MONITOR LABS AND CHEST XRAY (2) COPD exacerbation Status: Acute (3) RSV (acute bronchiolitis due to respiratory syncytial virus) Status: Acute (4) Hypoxia Status: Acute (5) Congestive heart failure Status: Chronic Qualifiers: Heart failure type: diastolic Heart failure chronicity: chronic Qualified Code(s): I50.32 - Chronic diastolic (congestive) heart failure (6) Hypertension Status: Chronic Qualifiers: Hypertension type: primary hypertension Qualified Code(s): I10 - Essential (primary) hypertension (7) Diabetes Status: Chronic Qualifiers: Diabetes mellitus type: type 2 Diabetes mellitus fci insulin use: with fci use Diabetes mellitus complication status: with hyperglycemia Qualified Code(s): E11.65 - Type 2 diabetes mellitus with hyperglycemia; Z79.4 - longterm (current) use of insulin (8) BPH (benign prostatic hyperplasia) Status: Chronic Qualifiers: Lower urinary tract symptom presence: unspecified whether lower urinary tract symptoms present Qualified Code(s): N40.0 - Benign prostatic hyperplasia without lower urinary tract symptoms
[2021-10-24] MEDS: ROBITUSSIN DM PO SCH ×3 (14:17→20:38)
[2021-10-24] MEDS: SNACK - Diabetic Appropriate PO SCH (20:38)
[2021-10-24] MEDS: ZyrTEC TAB 10 MG PO SCH (20:38)
[2021-10-24] MEDS: KLONOPIN TAB 1 MG PO SCH (20:39)
[2021-10-24] MEDS: MELATONIN PO SCH (20:39)
[2021-10-25] MEDS: DUONEB 0.5 MG/3 MG (3 mL) NEB SCH ×3 (05:09→21:05)
[2021-10-25] MEDS: NS 1/2 1,000 ML IV 1,000 ML IV SCH ×3 (05:16→21:23)
[2021-10-25 06:03] LABS: BASOPHILS % (AUTO) 0.2 % (0.2-1.0); EOSINOPHILS % (AUTO) 0.1 % (0.9-2.9); HEMATOCRIT 41.9 % (42.0-54.0); HEMOGLOBIN 14.3 g/dL (13.5-18.0); LYMPHOCYTES # (AUTO) 0.5 X10^3/uL (1.3-2.9); LYMPHOCYTES % (AUTO) 2.6 % (21.0-51.0); MEAN CORPUSCULAR HEMOGLOBIN 32.5 pg (27.0-34.0); MEAN CORPUSCULAR VOLUME 95.6 fL (80.0-100.0); MEAN PLATELET VOLUME 6.8 fL (7.4-11.0); MONOCYTES # (AUTO) 0.4 x10^3/uL (0.3-0.8); MONOCYTES % (AUTO) 2.3 % (0.0-13.0); NEUTROPHILS # (AUTO) 17.1 x10^3/uL (2.2-4.8); NEUTROPHILS % (AUTO) 94.8 % (42.0-75.0); RED BLOOD COUNT 4.38 X10^6/uL (4.7-6.0)
[2021-10-25 06:20] LABS: PLATELET MORPHOLOGY COMMENT NORMAL (NORMAL)
[2021-10-25 06:22] LABS: ALBUMIN 3.2 g/dL (3.4-5.0); CALCIUM 8.3 mg/dL (8.5-10.1); CARBON DIOXIDE 27.1 mmol/L (21-32); COR CA(FOR HYPOALB) 8.9 mg/dL (8.5-10.1); CREATININE 1.73 mg/dL (0.70-1.30); TOTAL PROTEIN 6.7 g/dL (6.4-8.2)
[2021-10-25] MEDS: NovoLIN R (or HumuLIN R) SUBCUT PRN ×4 (06:23→20:45)
[2021-10-25] MEDS: SOLU-Medrol 40 MG VIAL IVP SCH ×3 (06:50→21:24)
--- NOTE | 2021-10-25 07:45 | RAD ---
HISTORYShortness of breathSTUDYChest AP [id number] heart remains enlarged. No congestive heart failure is noted. The ezequiel are normal. Lungs are mildly hyperinflated. Mild chronic interstitial lung changes are present bilaterally. Subtle peripheral right basilar lung infiltrate has improved when compared with the prior examination. No other acute infiltrates or pleural effusions are identified. Bony thorax is unremarkable.IMPRESSIONImproving peripheral right lower lobe infiltrateHyperinflation with chronic interstitial lung changes consistent with COPD in the appropriate clinical settingElectronically signed by: RAVEN HOUSTON (Oct 25, 2021 07:44:24)
[2021-10-25] MEDS ORDERED: NS 1/2 1,000 ML IV 1,000 ML IV ONE (07:55)
[2021-10-25] MEDS: PULMICORT NEB TX 0.5 MG NEB SCH ×2 (08:30→21:05)
[2021-10-25] MEDS: LEVAQUIN PREMIX IV 750 MG 750 MG/150 ML BAG IV SCH (08:38)
[2021-10-25] MEDS: COREG TAB 12.5 MG PO SCH ×2 (08:40→20:42)
[2021-10-25] MEDS: DIFLUCAN PO SCH (08:40)
[2021-10-25] MEDS: JANUVIA PO SCH (08:41)
[2021-10-25] MEDS: FLOMAX PO SCH ×2 (08:41→15:12)
[2021-10-25] MEDS: NYSTATIN SUSP PO SCH ×4 (08:41→20:39)
[2021-10-25] MEDS: PriLOSEC PO SCH ×2 (08:42→20:41)
[2021-10-25] MEDS: ROBITUSSIN DM PO SCH ×4 (08:42→20:38)
[2021-10-25] MEDS: SINGULAIR TAB 10 MG PO SCH (08:42)
[2021-10-25] MEDS: VITAMIN D3 125 mcg (5,000 UNITS) PO SCH (08:43)
[2021-10-25] MEDS: SYNTHROID 100 mcg TAB PO SCH (08:43)
[2021-10-25] MEDS: ZINC SULFATE PO SCH (08:44)
[2021-10-25] MEDS: VSL#3 PO SCH (08:44)
[2021-10-25] MEDS: MUCOMYST 20% 200 MG/ML NEB SCH ×2 (13:05→21:05)
--- NOTE | 2021-10-25 18:30 | PCM.PROG ---
Progress Note - Progress Note for Day of Date of Exam: 10/25/21 - Subjective Subjective: IS CURRENTLY INPATIENT STATUS FOR TREATMENT OF BRONCHOPNEUMONIA, RSV, AND COPD EXACERBATION. HE HAS A HX OF HTN, CHF, AND RENAL FAILURE. TODAY, HE IS ALERT AND ORIENTED, SITTING UP IN BED ON MORNING ROUNDS. HE CONTINUES WITH SHORTNESS OF BREATH AND A DRY COUGH THIS MORNING. HE REPORTS FEELING LIKE HE HAS SPUTUM TO COUGH UP, BUT IS UNABLE TO. ON EXAMINATION, HEART IS REGULAR IN RATE AND RHYTHM. BILATERAL LUNGS ARE NOTED WITH EXPIRATORY WHEEZING, DIMINISHED. ABDOMEN IS OBESE, NON-TENDER. NORMAL BOWEL SOUNDS NOTED IN ALL QUADRNATS. NO UPPER OR LOWER EXTREMITY EDEMA NOTED. HE IS CURRENTLY UTILIZING OXYGEN VIA NASAL CANNULA AT 3 LPM. HIS OXYGEN SATURATIONS HAVE REMAINED IN THE 90s. HIS VITALS THIS MORNING ARE: 98.4-106-22-93%-134/86. LABS WERE OBTAINED. WBC 18.0, RBC 4.38, HGB 14.3, HCT 41.9, PLT COUNT 213, SODIUM 132, POTASSIUM 5.6, BUN 35, CREATININE 1.73, GLUCOSE 298, CALCIUM 8.3, AST 19, ALT 46, ALK PHOS 78, TOTAL PROTEIN 6.7, ALBUMIN 3.2. BLOOD CULTURES ARE PENDING. SPUTUM CULTURE IS POSITIVE FOR GROWTH OF ENTEROBACTER AEROGENES. A CHEST XRAY WAS OBTAINED AND REVEALED: The heart remains enlarged. No congestive heart failure is noted. The ezequiel are normal. Lungs are mildly hyperinflated. Mild chronic interstitial lung changes are present bilaterally. Subtle peripheral right basilar lung infiltrate has improved when compared with the prior examination. No other acute infiltrates or pleural effusions are identified. Bony thorax is unremarkable. HE IS CURRENTLY RECEIVING 1/2NS AT 20 ML/HR, LEVAQUIN 750MG IV Q48H, DUONEBS TID, PULMICORT NEBS BID, SOLU-MEDROL 20MG IV Q8H, CLONAZEPAM 1MG PO HS, DIFLUCAN 100MG PO DAILY, NYSTATIN SWISH AND SWALLOW 5ML PO QID, TUSSIONEX 5ML PO Q12H PRN, ROBITUSSIN DM 10ML PO QID, TESSALON PERLES 100MG PO TID PRN, HUMULIN R SLIDING SCALE, OTBS ACHS, AND HIS HOME MEDICATIONS WERE RESUMED. WE WILL ADD MUCOMYST TO HIS NEBULIZER TREATMENTS TODAY. OTHERWISE, WE PLAN TO FOLLOW UP WITH AM LABS AND CONTINUE TO MONITOR. TIME SPENT ON CLINICAL ASSESSMENT, REVIWING LABS AND IMAGING, DECISION MAKING, AND DOCUMENTATION GREATER THAN 45 MINUTES. - Past Medical Family Social History Past Med/Fam/Surg Hx: No changes since H&P Allergies: Allergies codeine Allergy (Verified 10/18/21 15:12) latex Allergy (Verified 05/03/18 08:54) TERAMYCIN Allergy (Uncoded 05/03/18 08:54) - Review of Systems ROS: No change since H&P - Vital Signs and I&O's Vital Signs: Temperature 97.4 F Pulse Rate [Left Brachial] 104 Pulse Rate 103 Respiratory Rate 22 Blood Pressure [Right Arm] 126/92 Blood Pressure [Left Arm] 148/69 Blood Pressure 153/88 O2 Sat by Pulse Oximetry 95 Intake and Output: Intake & Output 10/23/21 10/24/21 10/25/21 10/26/21 11:59 11:59 11:59 11:59 Intake Total 2926 / 2926 3062 / 3062 2320 / 2320 260 / 260 Output Total 3025 / 3025 3270 / 3270 2340 / 2340 Balance -99 / -99 -208 / -208 -20 / -20 260 / 260 - Physical Exam Oriented: Normal Eyes: Normal Ear: Normal Nose: Normal Throat: Normal Respiratory: Generalized, Diminished, Wheezes Cardiovascular: Normal : Normal Auscultation: Bowel Sounds: Normal Palpation: Normal Tenderness: Normal Skin: Normal Musculoskeletal: Normal Psychiatric: Normal Mood Description: Calm Affect: Normal Speech Pattern: Clear - Laboratory and Diagnostics Result Diagrams: 10/25/21 05:42 10/25/21 05:42 Labs: 10/18/21 14:15 Blood Blood Culture - Final 10/18/21 13:40 Blood Blood Culture - Final 10/18/21 14:00 Sputum - Expectorated Sputum Sputum Culture - Preliminary Enterobacter Aerogenes 10/18/21 14:00 Sputum - Expectorated Sputum - Final Laboratory WBC 18.0 X10^3/uL (3.6-10.0) H 10/25/21 05:42 RBC 4.38 X10^6/uL (4.7-6.0) L 10/25/21 05:42 Hgb 14.3 g/dL (13.5-18.0) 10/25/21 05:42 Hct 41.9 % (42.0-54.0) L 10/25/21 05:42 MCV 95.6 fL (80.0-100.0) 10/25/21 05:42 MCH 32.5 pg (27.0-34.0) 10/25/21 05:42 MCHC 34.0 g/dL (33.0-35.0) 10/25/21 05:42 RDW 14.0 % (11.6-16.5) 10/25/21 05:42 Plt Count 213 X10^3/uL (150.0-450.0) 10/25/21 05:42 Plt Count Comment Adequate (ADEQUATE) 10/25/21 05:42 MPV 6.8 fL (7.4-11.0) L 10/25/21 05:42 Neut % (Auto) 94.8 % (42.0-75.0) H 10/25/21 05:42 Lymph % (Auto) 2.6 % (21.0-51.0) L 10/25/21 05:42 [place] % (Auto) 2.3 % (0.0-13.0) 10/25/21 05:42 Eos % (Auto) 0.1 % (0.9-2.9) L 10/25/21 05:42 Baso % (Auto) 0.2 % (0.2-1.0) 10/25/21 05:42 Neut # (Auto) 17.1 x10^3/uL (2.2-4.8) H 10/25/21 05:42 Lymph # (Auto) 0.5 X10^3/uL (1.3-2.9) L 10/25/21 05:42 [place] # (Auto) 0.4 x10^3/uL (0.3-0.8) 10/25/21 05:42 Eos # (Auto) 0.0 x10^3/uL (0.0-0.2) 10/25/21 05:42 Baso # (Auto) 0.0 X10^3/uL (0.0-0.1) 10/25/21 05:42 Absolute Nucleated RBC 0.0 /100WBC 10/25/21 05:42 Total Counted 100 10/25/21 05:42 Neutrophils % (Manual) 89 % (39-76) H 10/25/21 05:42 Band Neutrophils % 1 % (0-10) 10/21/21 05:21 Lymphocytes % (Manual) 6 % (13-43) L 10/25/21 05:42 Monocytes % (Manual) 5 % (4-9) 10/25/21 05:42 Plt Morphology Comment Normal (NORMAL) 10/25/21 05:42 RBC Morphology Normal (NORMAL) 10/25/21 05:42 Sample Site Rrad 10/21/21 14:42 ABG pH 7.330 (7.35-7.45) L 10/21/21 14:42 ABG pCO2 48.0 mmHg (35.0-45.0) H 10/21/21 14:42 ABG pO2 55.0 mmHg (80.0-100.0) L 10/21/21 14:42 ABG HCO3 25.3 mmol/L (22-26) 10/21/21 14:42 ABG O2 Saturation 86.0 % (90-100) L 10/21/21 14:42 ABG Base Excess -1.1 mmol/L (-2.0-2.0) 10/21/21 14:42 Sudeep Test Pos 10/21/21 14:42 A-a Gradient 35.0 mmHg 10/21/21 14:42 FiO2 21.0 10/21/21 14:42 Blood Gas Comments Pt thad well elj 10/21/21 14:42 Sodium 132 mmol/L (136-145) L 10/25/21 05:42 Corrected Sodium 137 mmol/L (136-145) 10/25/21 05:42 Potassium 5.6 mmol/L (3.5-5.1) H 10/25/21 05:42 Chloride 98 mmol/L (98-107) 10/25/21 05:42 Carbon Dioxide 27.1 mmol/L (21-32) 10/25/21 05:42 BUN 35 mg/dL (7-18) H 10/25/21 05:42 Creatinine 1.73 mg/dL (0.70-1.30) H 10/25/21 05:42 Est GFR (MDRD) Af Amer 50 (>60) L 10/25/21 05:42 Est GFR (MDRD) Non-Af 41 (>60) L 10/25/21 05:42 Glucose 298 mg/dL (65-99) H 10/25/21 05:42 POC Glucose (mg/dL) 280 mg/dL (65-99) H 10/25/21 15:46 Calcium 8.3 mg/dL (8.5-10.1) L 10/25/21 05:42 Corrected Calcium 8.9 mg/dL (8.5-10.1) 10/25/21 05:42 Total Bilirubin 0.30 mg/dL (0.2-1.0) 10/25/21 05:42 AST 19 Units/L (15-37) 10/25/21 05:42 ALT 46 Units/L (12-78) 10/25/21 05:42 Alkaline Phosphatase 78 Units/L (46-116) 10/25/21 05:42 C-Reactive Protein 27.80 mg/L (0-3.0) H 10/18/21 13:40 B-Natriuretic Peptide 308 pg/mL (0-79) H 10/18/21 13:40 Total Protein 6.7 g/dL (6.4-8.2) 10/25/21 05:42 Albumin 3.2 g/dL (3.4-5.0) L 10/25/21 05:42 Globulin 3.5 g/dL (2.5-4.5) 10/25/21 05:42 Albumin/Globulin Ratio 0.9 Ratio (1.1-2.1) L 10/25/21 05:42 Specimen Type Clean catch urine 10/18/21 13:20 Urine Color Yellow (YELLOW) 10/18/21 13:20 Urine Appearance Clear (CLEAR) 10/18/21 13:20 Urine pH 6.0 (5.0 - 8.0) 10/18/21 13:20 Ur Specific [place] 1.005 (1.000-1.030) 10/18/21 13:20 Urine Protein Negative (NEGATIVE) 10/18/21 13:20 Urine Glucose (UA) Negative (NEGATIVE) 10/18/21 13:20 Urine Ketones Negative (NEGATIVE) 10/18/21 13:20 Urine Blood Negative (NEGATIVE) 10/18/21 13:20 Urine Nitrite Negative (NEGATIVE) 10/18/21 13:20 Urine Bilirubin Negative (NEGATIVE) 10/18/21 13:20 Urine Urobilinogen Normal (NORMAL) 10/18/21 13:20 Ur Leukocyte Esterase Negative (NEGATIVE) 10/18/21 13:20 SARS-CoV-2 (PCR) Negative (NEGATIVE) 10/20/21 10:58 Influenza Type A (PCR) Negative (NEGATIVE) 10/20/21 10:58 Influenza Type B (PCR) Negative (NEGATIVE) 10/20/21 10:58 RSV (PCR) Positive (NEGATIVE) A 10/20/21 10:58 - Plan (1) Bronchopneumonia Status: Acute Plan: SUPPLEMENTAL OXYGEN, IV FLUIDS, IV ANTIBIOTICS, NEB TX, MUCOMYST IN NEB [place], IV SOLU-MEDROL, DIFLUCAN, NYSTATIN S&S, CONTINUE HOME MEDS. MONITOR LABS AND CHEST XRAY (2) COPD exacerbation Status: Acute (3) RSV (acute bronchiolitis due to respiratory syncytial virus) Status: Acute (4) Hypoxia Status: Acute (5) Congestive heart failure Status: Chronic Qualifiers: Heart failure type: diastolic Heart failure chronicity: chronic Qualified Code(s): I50.32 - Chronic diastolic (congestive) heart failure (6) Hypertension Status: Chronic Qualifiers: Hypertension type: primary hypertension Qualified Code(s): I10 - Essential (primary) hypertension (7) Diabetes Status: Chronic Qualifiers: Diabetes mellitus type: type 2 Diabetes mellitus intermediate accountant insulin use: with nursing home use Diabetes mellitus complication status: with hyperglycemia Qualified Code(s): E11.65 - Type 2 diabetes mellitus with hyperglycemia; Z79.4 - terminal carman (current) use of insulin (8) BPH (benign prostatic hyperplasia) Status: Chronic Qualifiers: Lower urinary tract symptom presence: unspecified whether lower urinary tract symptoms present Qualified Code(s): N40.0 - Benign prostatic hyperplasia without lower urinary tract symptoms
[2021-10-25] MEDS: MELATONIN PO SCH (20:38)
[2021-10-25] MEDS: ZyrTEC TAB 10 MG PO SCH (20:40)
[2021-10-25] MEDS: TESSALON PERLES PO PRN (20:42)
[2021-10-25] MEDS: KLONOPIN TAB 1 MG PO SCH (20:43)
[2021-10-25] MEDS: SNACK - Diabetic Appropriate PO SCH (21:24)
[2021-10-26] MEDS: SOLU-Medrol 40 MG VIAL IVP SCH ×3 (05:29→22:21)
[2021-10-26 05:45] LABS: BASOPHILS # (AUTO) 0.1 X10^3/uL (0.0-0.1); BASOPHILS % (AUTO) 0.4 % (0.2-1.0); HEMATOCRIT 42.1 % (42.0-54.0); HEMOGLOBIN 14.1 g/dL (13.5-18.0); LYMPHOCYTES # (AUTO) 0.4 X10^3/uL (1.3-2.9); LYMPHOCYTES % (AUTO) 2.6 % (21.0-51.0); MEAN CORPUSCULAR HEMOGLOBIN 32.1 pg (27.0-34.0); MEAN CORPUSCULAR HGB CONC 33.6 g/dL (33.0-35.0); MEAN CORPUSCULAR VOLUME 95.6 fL (80.0-100.0); MEAN PLATELET VOLUME 6.9 fL (7.4-11.0); MONOCYTES # (AUTO) 0.4 x10^3/uL (0.3-0.8); MONOCYTES % (AUTO) 2.6 % (0.0-13.0); NEUTROPHILS # (AUTO) 15.7 x10^3/uL (2.2-4.8); NEUTROPHILS % (AUTO) 94.4 % (42.0-75.0); RED BLOOD COUNT 4.41 X10^6/uL (4.7-6.0); RED CELL DISTRIBUTION WIDTH 14.1 % (11.6-16.5); WHITE BLOOD COUNT 16.6 X10^3/uL (3.6-10.0)
[2021-10-26] MEDS: NovoLIN R (or HumuLIN R) SUBCUT PRN ×4 (05:46→20:38)
[2021-10-26 06:06] LABS: ALBUMIN 3.1 g/dL (3.4-5.0); CALCIUM 8.4 mg/dL (8.5-10.1); CARBON DIOXIDE 28.6 mmol/L (21-32); COR CA(FOR HYPOALB) 9.1 mg/dL (8.5-10.1); CREATININE 1.74 mg/dL (0.70-1.30); TOTAL PROTEIN 6.4 g/dL (6.4-8.2)
[2021-10-26 06:15] LABS: PLATELET MORPHOLOGY COMMENT NORMAL (NORMAL)
[2021-10-26] MEDS: DUONEB 0.5 MG/3 MG (3 mL) NEB SCH ×3 (06:20→21:11)
[2021-10-26] MEDS: MUCOMYST 20% 200 MG/ML NEB SCH ×3 (06:20→21:11)
--- NOTE | 2021-10-26 06:38 | RAD ---
HISTORYShortness of breathSTUDYChest AP [id number]/2022FINDINGSHear t remains enlarged. No congestive heart failure is noted. The ezequiel are normal. Lungs remain mildly hyperinflated and demonstrate mild chronic interstitial lung changes present. Right basilar lung infiltrate is unchanged. No other acute infiltrates or pleural effusions are identified. Bony thorax is unremarkable.IMPRESSIONNo change cardiomegaly without congestive heart failureNo change hyperinflation with some chronic interstitial lung changesNo change right basilar lung infiltrateElectronically signed by: RAVEN HOUSTON (Oct 26, 2021 06:36:52)
[2021-10-26] MEDS: PULMICORT NEB TX 0.5 MG NEB SCH ×2 (08:40→21:11)
[2021-10-26] MEDS: SINGULAIR TAB 10 MG PO SCH (09:11)
[2021-10-26] MEDS: VITAMIN D3 125 mcg (5,000 UNITS) PO SCH (09:11)
[2021-10-26] MEDS: PriLOSEC PO SCH ×2 (09:11→20:36)
[2021-10-26] MEDS: FLOMAX PO SCH ×2 (09:11→15:18)
[2021-10-26] MEDS: ROBITUSSIN DM PO SCH ×4 (09:12→20:34)
[2021-10-26] MEDS: ZINC SULFATE PO SCH (09:12)
[2021-10-26] MEDS: COREG TAB 12.5 MG PO SCH ×2 (09:12→20:36)
[2021-10-26] MEDS: JANUVIA PO SCH (09:13)
[2021-10-26] MEDS: DIFLUCAN PO SCH (09:13)
[2021-10-26] MEDS: SYNTHROID 100 mcg TAB PO SCH (09:14)
[2021-10-26] MEDS: NYSTATIN SUSP PO SCH ×4 (09:14→20:35)
[2021-10-26] MEDS: LEVAQUIN PREMIX IV 750 MG 750 MG/150 ML BAG IV SCH (09:14)
[2021-10-26] MEDS: VSL#3 PO SCH (09:15)
[2021-10-26] MEDS: NS 1/2 1,000 ML IV 1,000 ML IV SCH (09:15)
[2021-10-26] MEDS: TUSSIONEX PENNKINETIC SUSP PO PRN (15:19)
[2021-10-26] MEDS ORDERED: LANOXIN INJ IVP ONE (20:04)
[2021-10-26] MEDS: MELATONIN PO SCH (20:35)
[2021-10-26] MEDS: TESSALON PERLES PO PRN (20:35)
[2021-10-26] MEDS: KLONOPIN TAB 1 MG PO SCH (20:36)
[2021-10-26] MEDS: ZyrTEC TAB 10 MG PO SCH (20:37)
[2021-10-26] MEDS: SNACK - Diabetic Appropriate PO SCH (22:21)
[2021-10-27] MEDS: NS 1/2 1,000 ML IV 1,000 ML IV SCH ×2 (00:07→13:34)
[2021-10-27] MEDS: SOLU-Medrol 40 MG VIAL IVP SCH (05:31)
[2021-10-27 05:55] LABS: BASOPHILS % (AUTO) 0.1 % (0.2-1.0); HEMATOCRIT 40.1 % (42.0-54.0); HEMOGLOBIN 13.5 g/dL (13.5-18.0); LYMPHOCYTES # (AUTO) 0.3 X10^3/uL (1.3-2.9); LYMPHOCYTES % (AUTO) 2.5 % (21.0-51.0); MEAN CORPUSCULAR HEMOGLOBIN 32.4 pg (27.0-34.0); MEAN CORPUSCULAR HGB CONC 33.6 g/dL (33.0-35.0); MEAN CORPUSCULAR VOLUME 96.4 fL (80.0-100.0); MEAN PLATELET VOLUME 6.8 fL (7.4-11.0); MONOCYTES # (AUTO) 0.4 x10^3/uL (0.3-0.8); MONOCYTES % (AUTO) 3.1 % (0.0-13.0); NEUTROPHILS # (AUTO) 11.5 x10^3/uL (2.2-4.8); NEUTROPHILS % (AUTO) 94.3 % (42.0-75.0); RED BLOOD COUNT 4.16 X10^6/uL (4.7-6.0); RED CELL DISTRIBUTION WIDTH 14.2 % (11.6-16.5); WHITE BLOOD COUNT 12.2 X10^3/uL (3.6-10.0)
[2021-10-27 06:00] LABS: ALBUMIN 2.8 g/dL (3.4-5.0); CALCIUM 8.2 mg/dL (8.5-10.1); CARBON DIOXIDE 30.3 mmol/L (21-32); COR CA(FOR HYPOALB) 9.2 mg/dL (8.5-10.1); CREATININE 1.79 mg/dL (0.70-1.30); TOTAL PROTEIN 5.8 g/dL (6.4-8.2)
[2021-10-27] MEDS: NovoLIN R (or HumuLIN R) SUBCUT PRN ×4 (06:08→21:16)
[2021-10-27 06:18] LABS: BAND NEUTROPHILS % 2 % (0-10); PLATELET MORPHOLOGY COMMENT NORMAL (NORMAL)
[2021-10-27] MEDS: DUONEB 0.5 MG/3 MG (3 mL) NEB SCH (06:23)
[2021-10-27] MEDS: MUCOMYST 20% 200 MG/ML NEB SCH ×3 (06:24→20:15)
--- NOTE | 2021-10-27 07:28 | RAD ---
HISTORYShortness of breathSTUDYChest AP [id number]/21/2022FINDINGSHear t remains enlarged. No congestive heart failure is noted. The ezequiel are normal. Lungs are mildly hyperinflated. Mild chronic interstitial lung changes are present and unchanged. No acute infiltrates remain. The right lung base now appears clear. No pleural effusions are identified. Bony thorax is unremarkable.IMPRESSIONContinued cardiomegaly without congestive heart failureNo change hyperinflation with mild chronic interstitial lung changesResolution previously described right basilar lung infiltrateElectronically signed by: RAVEN HOUSTON (Oct 27, 2021 07:26:45)
[2021-10-27] MEDS: ROBITUSSIN DM PO SCH ×4 (09:04→20:54)
[2021-10-27] MEDS: VSL#3 PO SCH (09:04)
[2021-10-27] MEDS: FLOMAX PO SCH ×2 (09:04→14:30)
[2021-10-27] MEDS: SINGULAIR TAB 10 MG PO SCH (09:04)
[2021-10-27] MEDS: VITAMIN D3 125 mcg (5,000 UNITS) PO SCH (09:04)
[2021-10-27] MEDS: ZINC SULFATE PO SCH (09:05)
[2021-10-27] MEDS: COREG TAB 12.5 MG PO SCH ×2 (09:05→20:54)
[2021-10-27] MEDS: PriLOSEC PO SCH ×2 (09:05→20:53)
[2021-10-27] MEDS: DIFLUCAN PO SCH (09:05)
[2021-10-27] MEDS: JANUVIA PO SCH (09:06)
[2021-10-27] MEDS: NYSTATIN SUSP PO SCH ×4 (09:06→20:53)
[2021-10-27] MEDS: LEVAQUIN PREMIX IV 750 MG 750 MG/150 ML BAG IV SCH (09:06)
[2021-10-27] MEDS: SYNTHROID 100 mcg TAB PO SCH (09:08)
[2021-10-27] MEDS: PULMICORT NEB TX 0.5 MG NEB SCH ×2 (09:55→20:15)
[2021-10-27] MEDS: LANOXIN or DIGITEK PO SCH (10:54)
--- NOTE | 2021-10-27 11:06 | PCM.PROG ---
Progress Note - Progress Note for Day of Date of Exam: 10/26/21 - Subjective Subjective: IS CURRENTLY INPATIENT STATUS FOR TREATMENT OF BRONCHOPNEUMONIA, RSV, AND -COPD EXACERBATION. HE HAS A HX OF HTN, CHF, AND RENAL FAILURE. TODAY, HE IS ALERT AND ORIENTED, SITTING UP IN BED ON MORNING ROUNDS. HE CONTINUES WITH SHORTNESS OF BREATH AND A DRY COUGH THIS MORNING. HE DENIES SIGNIFICANT IMPROVEMENT IN SYMPTOMS TODAY. HE CONTINUES TO FEEL LIKE HE NEEDS TO COUGH UP SPUTUM, BUT CANT. ON EXAMINATION, HEART IS REGULAR IN RATE AND RHYTHM. HE HAS BEEN TACHY AT TIMES. BILATERAL LUNGS ARE NOTED WITH EXPIRATORY WHEEZING, DIMINISHED. ABDOMEN IS OBESE, NON-TENDER. NORMAL BOWEL SOUNDS NOTED IN ALL QUADRNATS. NO UPPER OR LOWER EXTREMITY EDEMA NOTED. HE IS CURRENTLY UTILIZING OXYGEN VIA NASAL CANNULA AT 3 LPM. HIS OXYGEN SATURATIONS HAVE REMAINED IN THE 90s. HIS VITALS THIS MORNING ARE: 97.6-90-18-93%-113/69. LABS WERE OBTAINED. WBC 16.6, RBC 4.41, HGB 14.1, HCT 42.1, SODIUM 134, POTASSIUM 5.5, BUN 36, CREATININE 1.74, GLUCOSE 240, CALCIUM 8.4, AST 13, ALT 40, ALK PHOS 65, TOTAL PROTEIN 6.4, ALBUMIN 3.1. SPUTUM CULTURE IS POSITIVE FOR GROWTH OF ENTEROBACTER AEROGENES. A CHEST XRAY WAS OBTAINED AND REVEALED: Heart remains enlarged. No congestive heart failure is noted. The ezequiel are normal. Lungs remain mildly hyperinflated and demonstrate mild chronic interstitial lung changes present. Right basilar lung infiltrate is unchanged. No other acute infiltrates or pleural effusions are identified. Bony thorax is unremarkable. HE IS CURRENTLY RECEIVING 1/2NS AT 20 ML/HR, LEVAQUIN 750MG IV Q48H, DUONEBS TID, PULMICORT NEBS BID, MUCOMYST IN NEB [place] TID, SOLU-MEDROL 20MG IV Q8H, CLONAZEPAM 1MG PO HS, DIFLUCAN 100MG PO DAILY, NYSTATIN SWISH AND SWALLOW 5ML PO QID, TUSSIONEX 5ML PO Q12H PRN, ROBITUSSIN DM 10ML PO QID, TESSALON PERLES 100MG PO TID PRN, HUMULIN R SLIDING SCALE, OTBS ACHS, AND HIS HOME MEDICATIONS WERE RESUMED. WE WILL CONTINUE WITH CURRENT PLAN OF CARE TODAY. OTHERWISE, WE PLAN TO FOLLOW UP WITH AM LABS AND CONTINUE TO MONITOR. TIME SPENT ON CLINICAL A SSESSMENT, REVIWING LABS AND IMAGING, DECISION MAKING, AND DOCUMENTATION GREATER THAN 45 MINUTES. - Past Medical Family Social History Past Med/Fam/Surg Hx: No changes since H&P Allergies: Allergies codeine Allergy (Verified 10/18/21 15:12) latex Allergy (Verified 05/03/18 08:54) TERAMYCIN Allergy (Uncoded 05/03/18 08:54) - Review of Systems ROS: No change since H&P - Vital Signs and I&O's Vital Signs: Temperature 97.6 F Pulse Rate [Left Brachial] 78 Pulse Rate 86 Respiratory Rate 20 Blood Pressure [Right Arm] 145/85 Blood Pressure [Left Arm] 148/69 Blood Pressure 153/88 O2 Sat by Pulse Oximetry 91 Intake and Output: Intake & Output 10/24/21 10/25/21 10/26/21 10/27/21 11:59 11:59 11:59 11:59 Intake Total 3062 / 3062 2320 / 2320 2142 / 2142 2436 / 2436 Output Total 3270 / 3270 2340 / 2340 2750 / 2750 2800 / 2800 Balance -208 / -208 -20 / -20 -608 / -608 -364 / -364 - Physical Exam Oriented: Normal Eyes: Normal Ear: Normal Nose: Normal Throat: Normal Respiratory: Generalized, Diminished, Wheezes Cardiovascular: Normal : Normal Auscultation: Bowel Sounds: Normal Palpation: Normal Tenderness: Normal Skin: Normal Musculoskeletal: Normal Psychiatric: Normal Mood Description: Calm Affect: Normal Speech Pattern: Clear - Laboratory and Diagnostics Result Diagrams: 10/27/21 05:28 10/27/21 05:28 Labs: 10/18/21 14:15 Blood Blood Culture - Final 10/18/21 13:40 Blood Blood Culture - Final 10/18/21 14:00 Sputum - Expectorated Sputum Sputum Culture - Preliminary Enterobacter Aerogenes 10/18/21 14:00 Sputum - Expectorated Sputum - Final Laboratory WBC 12.2 X10^3/uL (3.6-10.0) H 10/27/21 05:28 RBC 4.16 X10^6/uL (4.7-6.0) L 10/27/21 05:28 Hgb 13.5 g/dL (13.5-18.0) 10/27/21 05:28 Hct 40.1 % (42.0-54.0) L 10/27/21 05:28 MCV 96.4 fL (80.0-100.0) 10/27/21 05:28 MCH 32.4 pg (27.0-34.0) 10/27/21 05:28 MCHC 33.6 g/dL (33.0-35.0) 10/27/21 05:28 RDW 14.2 % (11.6-16.5) 10/27/21 05:28 Plt Count 184 X10^3/uL (150.0-450.0) 10/27/21 05:28 Plt Count Comment Adequate (ADEQUATE) 10/27/21 05:28 MPV 6.8 fL (7.4-11.0) L 10/27/21 05:28 Neut % (Auto) 94.3 % (42.0-75.0) H 10/27/21 05:28 Lymph % (Auto) 2.5 % (21.0-51.0) L 10/27/21 05:28 [place] % (Auto) 3.1 % (0.0-13.0) 10/27/21 05:28 Eos % (Auto) 0.0 % (0.9-2.9) L 10/27/21 05:28 Baso % (Auto) 0.1 % (0.2-1.0) L 10/27/21 05:28 Neut # (Auto) 11.5 x10^3/uL (2.2-4.8) H 10/27/21 05:28 Lymph # (Auto) 0.3 X10^3/uL (1.3-2.9) L 10/27/21 05:28 [place] # (Auto) 0.4 x10^3/uL (0.3-0.8) 10/27/21 05:28 Eos # (Auto) 0.0 x10^3/uL (0.0-0.2) 10/27/21 05:28 Baso # (Auto) 0.0 X10^3/uL (0.0-0.1) 10/27/21 05:28 Absolute Nucleated RBC 0.1 /100WBC 10/27/21 05:28 Total Counted 100 10/27/21 05:28 Neutrophils % (Manual) 90 % (39-76) H 10/27/21 05:28 Band Neutrophils % 2 % (0-10) 10/27/21 05:28 Lymphocytes % (Manual) 3 % (13-43) L 10/27/21 05:28 Monocytes % (Manual) 5 % (4-9) 10/27/21 05:28 Plt Morphology Comment Normal (NORMAL) 10/27/21 05:28 RBC Morphology Normal (NORMAL) 10/27/21 05:28 Sample Site Rrad 10/21/21 14:42 ABG pH 7.330 (7.35-7.45) L 10/21/21 14:42 ABG pCO2 48.0 mmHg (35.0-45.0) H 10/21/21 14:42 ABG pO2 55.0 mmHg (80.0-100.0) L 10/21/21 14:42 ABG HCO3 25.3 mmol/L (22-26) 10/21/21 14:42 ABG O2 Saturation 86.0 % (90-100) L 10/21/21 14:42 ABG Base Excess -1.1 mmol/L (-2.0-2.0) 10/21/21 14:42 Sudeep Test Pos 10/21/21 14:42 A-a Gradient 35.0 mmHg 10/21/21 14:42 FiO2 21.0 10/21/21 14:42 Blood Gas Comments Pt thad well elj 10/21/21 14:42 Sodium 134 mmol/L (136-145) L 10/27/21 05:28 Corrected Sodium 138 mmol/L (136-145) 10/27/21 05:28 Potassium 5.4 mmol/L (3.5-5.1) H 10/27/21 05:28 Chloride 101 mmol/L (98-107) 10/27/21 05:28 Carbon Dioxide 30.3 mmol/L (21-32) 10/27/21 05:28 BUN 38 mg/dL (7-18) H 10/27/21 05:28 Creatinine 1.79 mg/dL (0.70-1.30) H 10/27/21 05:28 Est GFR (MDRD) Af Amer 48 (>60) L 10/27/21 05:28 Est GFR (MDRD) Non-Af 39 (>60) L 10/27/21 05:28 Glucose 268 mg/dL (65-99) H 10/27/21 05:28 POC Glucose (mg/dL) 260 mg/dL (65-99) H 10/27/21 10:51 Calcium 8.2 mg/dL (8.5-10.1) L 10/27/21 05:28 Corrected Calcium 9.2 mg/dL (8.5-10.1) 10/27/21 05:28 Total Bilirubin 0.30 mg/dL (0.2-1.0) 10/27/21 05:28 AST 8 Units/L (15-37) L 10/27/21 05:28 ALT 33 Units/L (12-78) 10/27/21 05:28 Alkaline Phosphatase 64 Units/L (46-116) 10/27/21 05:28 C-Reactive Protein 27.80 mg/L (0-3.0) H 10/18/21 13:40 B-Natriuretic Peptide 308 pg/mL (0-79) H 10/18/21 13:40 Total Protein 5.8 g/dL (6.4-8.2) L 10/27/21 05:28 Albumin 2.8 g/dL (3.4-5.0) L 10/27/21 05:28 Globulin 3.0 g/dL (2.5-4.5) 10/27/21 05:28 Albumin/Globulin Ratio 0.9 Ratio (1.1-2.1) L 10/27/21 05:28 Specimen Type Clean catch urine 10/18/21 13:20 Urine Color Yellow (YELLOW) 10/18/21 13:20 Urine Appearance Clear (CLEAR) 10/18/21 13:20 Urine pH 6.0 (5.0 - 8.0) 10/18/21 13:20 Ur Specific [place] 1.005 (1.000-1.030) 10/18/21 13:20 Urine Protein Negative (NEGATIVE) 10/18/21 13:20 Urine Glucose (UA) Negative (NEGATIVE) 10/18/21 13:20 Urine Ketones Negative (NEGATIVE) 10/18/21 13:20 Urine Blood Negative (NEGATIVE) 10/18/21 13:20 Urine Nitrite Negative (NEGATIVE) 10/18/21 13:20 Urine Bilirubin Negative (NEGATIVE) 10/18/21 13:20 Urine Urobilinogen Normal (NORMAL) 10/18/21 13:20 Ur Leukocyte Esterase Negative (NEGATIVE) 10/18/21 13:20 SARS-CoV-2 (PCR) Negative (NEGATIVE) 10/20/21 10:58 Influenza Type A (PCR) Negative (NEGATIVE) 10/20/21 10:58 Influenza Type B (PCR) Negative (NEGATIVE) 10/20/21 10:58 RSV (PCR) Positive (NEGATIVE) A 10/20/21 10:58 - Plan (1) Bronchopneumonia Status: Acute Plan: SUPPLEMENTAL OXYGEN, IV FLUIDS, IV ANTIBIOTICS, NEB TX, MUCOMYST IN NEB [place], IV SOLU-MEDROL, DIFLUCAN, NYSTATIN S&S, CONTINUE HOME MEDS. MONITOR LABS AND CHEST XRAY (2) COPD exacerbation Status: Acute (3) RSV (acute bronchiolitis due to respiratory syncytial virus) Status: Acute (4) Hypoxia Status: Acute (5) Congestive heart failure Status: Chronic Qualifiers: Heart failure type: diastolic Heart failure chronicity: chronic Qualified Code(s): I50.32 - Chronic diastolic (congestive) heart failure (6) Hypertension Status: Chronic Qualifiers: Hypertension type: primary hypertension Qualified Code(s): I10 - Essential (primary) hypertension (7) Diabetes Status: Chronic Qualifiers: Diabetes mellitus type: type 2 Diabetes mellitus emt intermediate insulin use: with fpc use Diabetes mellitus complication status: with hyperglycemia Qualified Code(s): E11.65 - Type 2 diabetes mellitus with hyperglycemia; Z79.4 - retirement (current) use of insulin (8) BPH (benign prostatic hyperplasia) Status: Chronic Qualifiers: Lower urinary tract symptom presence: unspecified whether lower urinary tract symptoms present Qualified Code(s): N40.0 - Benign prostatic hyperplasia without lower urinary tract symptoms
[2021-10-27] MEDS: XOPENEX 1.25 MG/3 ML NEBULE NEB SCH ×2 (13:15→20:15)
--- NOTE | 2021-10-27 16:30 | PCM.PROG ---
Progress Note - Progress Note for Day of Date of Exam: 10/27/21 - Subjective Subjective: IS CURRENTLY INPATIENT STATUS FOR TREATMENT OF BRONCHOPNEUMONIA, RSV, AND COPD EXACERBATION. HE HAS A HX OF HTN, CHF, AND RENAL FAILURE. TODAY, HE IS ALERT AND ORIENTED, SITTING UP IN BED ON MORNING ROUNDS. HE CONTINUES WITH SHORTNESS OF BREATH AND A DRY COUGH THIS MORNING. HE ADMITS TO SLIGHT IMPROVEMENT IN SYMPTOMS TODAY. HE DOES REPORT PERSISTENT GENERALIZED WEAKNESS. DURING THE NIGHT, HE DID HAVE A RUN OF A-FIB WITH RVR, HEARTRATE 110- 140 BPM. HE WAS GIVEN DIGOXIN 500MCG IV X 1 DOSE. HEARTRATE RETURNED TO NORMAL AFTER RECEIVING DIGOXIN. ON EXAMINATION, HEART IS REGULAR IN RATE AND RHYTHM. HE HAS BEEN TACHY AT TIMES. BILATERAL LUNGS ARE NOTED WITH EXPIRATORY WHEEZING, DIM INISHED. ABDOMEN IS OBESE, NON-TENDER. NORMAL BOWEL SOUNDS NOTED IN ALL QUADRNATS. NO UPPER OR LOWER EXTREMITY EDEMA NOTED. HE IS CURRENTLY UTILIZING OXYGEN VIA NASAL CANNULA AT 3 LPM. HIS OXYGEN SATURATIONS HAVE REMAINED IN THE 90s. HIS VITALS THIS MORNING ARE: 97.6-78-20-97%-145/85. LABS WERE OBTAINED. WBC 12.2, RBC 4.16, HGB 13.5, HCT 40.1, SODIUM 134, POTASSIUM 5.4, BUN 38, CREATININE 1.79, GLUCOSE 268, CALCIUM 8.2, AST 8, ALT 33, ALK PHOS 64, TOTAL PROTEIN 5.8, ALBUMIN 2.8. SPUTUM CULTURE IS POSITIVE FOR GROWTH OF ENTEROBACTER AEROGENES. A CHEST XRAY WAS OBTAINED AND REVEALED: Continued cardiomegaly without congestive heart failure. No change hyperinflation with mild chronic interstitial lung changes. Resolution previously described right basilar lung infiltrate. HE IS CURRENTLY RECEIVING 1/2NS AT 20 ML/HR, LEVAQUIN 750MG IV Q48H, DUONEBS TID, PULMICORT NEBS BID, MUCOMYST IN NEB [place] TID, SOLU-MEDROL 20MG IV Q8H, CLONAZEPAM 1MG PO HS, DIFLUCAN 100MG PO DAILY, NYSTATIN SWISH AND SWALLOW 5ML PO QID, TUSSIONEX 5ML PO Q12H PRN, ROBITUSSIN DM 10ML PO QID, TESSALON PERLES 100MG PO TID PRN, HUMULIN R SLIDING SCALE, OTBS ACHS, AND HIS HOME MEDICATIONS WERE RESUMED. TODAY, WE WILL DISCONTINUE THE SOLU-MEDROL AND DUONEBS. WE WILL START XOPENEX NEBS TID AND DIGOXIN 125MCG PO DAILY. OTHERWISE, WE PLAN TO FOLLOW UP WITH AM LABS AND CONTINUE TO MONITOR. TIME SPENT ON CLINICAL ASSESSMENT, REVIWING LABS AND IMAGING, DECISION MAKING, AND DOCUMENTATION GREATER THAN 45 MINUTES. - Past Medical Family Social History Past Med/Fam/Surg Hx: No changes since H&P Allergies: Allergies codeine Allergy (Verified 10/18/21 15:12) latex Allergy (Verified 05/03/18 08:54) TERAMYCIN Allergy (Uncoded 05/03/18 08:54) - Review of Systems ROS: No change since H&P - Vital Signs and I&O's Vital Signs: Temperature 97.9 F Pulse Rate [Left Brachial] 82 Pulse Rate 69 Respiratory Rate 20 Blood Pressure [Right Arm] 141/83 Blood Pressure [Left Arm] 148/69 Blood Pressure 153/88 O2 Sat by Pulse Oximetry 99 Intake and Output: Intake & Output 10/25/21 10/26/21 10/27/21 10/28/21 11:59 11:59 11:59 11:59 Intake Total 2320 / 2320 2142 / 2142 2436 / 2436 840 / 840 Output Total 2340 / 2340 2750 / 2750 2800 / 2800 1100 / 1100 Balance -20 / -20 -608 / -608 -364 / -364 -260 / -260 - Physical Exam Oriented: Normal Eyes: Normal Ear: Normal Nose: Normal Throat: Normal Respiratory: Generalized, Diminished, Wheezes Cardiovascular: Normal : Normal Auscultation: Bowel Sounds: Normal Palpation: Normal Tenderness: Normal Skin: Normal Musculoskeletal: Normal Psychiatric: Normal Mood Description: Calm Affect: Normal Speech Pattern: Clear - Laboratory and Diagnostics Result Diagrams: 10/27/21 05:28 10/27/21 05:28 Labs: 10/18/21 14:15 Blood Blood Culture - Final 10/18/21 13:40 Blood Blood Culture - Final 10/18/21 14:00 Sputum - Expectorated Sputum Sputum Culture - Preliminary Enterobacter Aerogenes 10/18/21 14:00 Sputum - Expectorated Sputum - Final Laboratory WBC 12.2 X10^3/uL (3.6-10.0) H 10/27/21 05:28 RBC 4.16 X10^6/uL (4.7-6.0) L 10/27/21 05:28 Hgb 13.5 g/dL (13.5-18.0) 10/27/21 05:28 Hct 40.1 % (42.0-54.0) L 10/27/21 05:28 MCV 96.4 fL (80.0-100.0) 10/27/21 05:28 MCH 32.4 pg (27.0-34.0) 10/27/21 05:28 MCHC 33.6 g/dL (33.0-35.0) 10/27/21 05:28 RDW 14.2 % (11.6-16.5) 10/27/21 05:28 Plt Count 184 X10^3/uL (150.0-450.0) 10/27/21 05:28 Plt Count Comment Adequate (ADEQUATE) 10/27/21 05:28 MPV 6.8 fL (7.4-11.0) L 10/27/21 05:28 Neut % (Auto) 94.3 % (42.0-75.0) H 10/27/21 05:28 Lymph % (Auto) 2.5 % (21.0-51.0) L 10/27/21 05:28 Elliott % (Auto) 3.1 % (0.0-13.0) 10/27/21 05:28 Eos % (Auto) 0.0 % (0.9-2.9) L 10/27/21 05:28 Baso % (Auto) 0.1 % (0.2-1.0) L 10/27/21 05:28 Neut # (Auto) 11.5 x10^3/uL (2.2-4.8) H 10/27/21 05:28 Lymph # (Auto) 0.3 X10^3/uL (1.3-2.9) L 10/27/21 05:28 [place] # (Auto) 0.4 x10^3/uL (0.3-0.8) 10/27/21 05:28 Eos # (Auto) 0.0 x10^3/uL (0.0-0.2) 10/27/21 05:28 Baso # (Auto) 0.0 X10^3/uL (0.0-0.1) 10/27/21 05:28 Absolute Nucleated RBC 0.1 /100WBC 10/27/21 05:28 Total Counted 100 10/27/21 05:28 Neutrophils % (Manual) 90 % (39-76) H 10/27/21 05:28 Band Neutrophils % 2 % (0-10) 10/27/21 05:28 Lymphocytes % (Manual) 3 % (13-43) L 10/27/21 05:28 Monocytes % (Manual) 5 % (4-9) 10/27/21 05:28 Plt Morphology Comment Normal (NORMAL) 10/27/21 05:28 RBC Morphology Normal (NORMAL) 10/27/21 05:28 Sample Site Rrad 10/21/21 14:42 ABG pH 7.330 (7.35-7.45) L 10/21/21 14:42 ABG pCO2 48.0 mmHg (35.0-45.0) H 10/21/21 14:42 ABG pO2 55.0 mmHg (80.0-100.0) L 10/21/21 14:42 ABG HCO3 25.3 mmol/L (22-26) 10/21/21 14:42 ABG O2 Saturation 86.0 % (90-100) L 10/21/21 14:42 ABG Base Excess -1.1 mmol/L (-2.0-2.0) 10/21/21 14:42 Sudeep Test Pos 10/21/21 14:42 A-a Gradient 35.0 mmHg 10/21/21 14:42 FiO2 21.0 10/21/21 14:42 Blood Gas Comments Pt thad well elj 10/21/21 14:42 Sodium 134 mmol/L (136-145) L 10/27/21 05:28 Corrected Sodium 138 mmol/L (136-145) 10/27/21 05:28 Potassium 5.4 mmol/L (3.5-5.1) H 10/27/21 05:28 Chloride 101 mmol/L (98-107) 10/27/21 05:28 Carbon Dioxide 30.3 mmol/L (21-32) 10/27/21 05:28 BUN 38 mg/dL (7-18) H 10/27/21 05:28 Creatinine 1.79 mg/dL (0.70-1.30) H 10/27/21 05:28 Est GFR (MDRD) Af Amer 48 (>60) L 10/27/21 05:28 Est GFR (MDRD) Non-Af 39 (>60) L 10/27/21 05:28 Glucose 268 mg/dL (65-99) H 10/27/21 05:28 POC Glucose (mg/dL) 260 mg/dL (65-99) H 10/27/21 10:51 Calcium 8.2 mg/dL (8.5-10.1) L 10/27/21 05:28 Corrected Calcium 9.2 mg/dL (8.5-10.1) 10/27/21 05:28 Total Bilirubin 0.30 mg/dL (0.2-1.0) 10/27/21 05:28 AST 8 Units/L (15-37) L 10/27/21 05:28 ALT 33 Units/L (12-78) 10/27/21 05:28 Alkaline Phosphatase 64 Units/L (46-116) 10/27/21 05:28 C-Reactive Protein 27.80 mg/L (0-3.0) H 10/18/21 13:40 B-Natriuretic Peptide 308 pg/mL (0-79) H 10/18/21 13:40 Total Protein 5.8 g/dL (6.4-8.2) L 10/27/21 05:28 Albumin 2.8 g/dL (3.4-5.0) L 10/27/21 05:28 Globulin 3.0 g/dL (2.5-4.5) 10/27/21 05:28 Albumin/Globulin Ratio 0.9 Ratio (1.1-2.1) L 10/27/21 05:28 Specimen Type Clean catch urine 10/18/21 13:20 Urine Color Yellow (YELLOW) 10/18/21 13:20 Urine Appearance Clear (CLEAR) 10/18/21 13:20 Urine pH 6.0 (5.0 - 8.0) 10/18/21 13:20 Ur Specific [place] 1.005 (1.000-1.030) 10/18/21 13:20 Urine Protein Negative (NEGATIVE) 10/18/21 13:20 Urine Glucose (UA) Negative (NEGATIVE) 10/18/21 13:20 Urine Ketones Negative (NEGATIVE) 10/18/21 13:20 Urine Blood Negative (NEGATIVE) 10/18/21 13:20 Urine Nitrite Negative (NEGATIVE) 10/18/21 13:20 Urine Bilirubin Negative (NEGATIVE) 10/18/21 13:20 Urine Urobilinogen Normal (NORMAL) 10/18/21 13:20 Ur Leukocyte Esterase Negative (NEGATIVE) 10/18/21 13:20 SARS-CoV-2 (PCR) Negative (NEGATIVE) 10/20/21 10:58 Influenza Type A (PCR) Negative (NEGATIVE) 10/20/21 10:58 Influenza Type B (PCR) Negative (NEGATIVE) 10/20/21 10:58 RSV (PCR) Positive (NEGATIVE) A 10/20/21 10:58 - Plan (1) Bronchopneumonia Status: Acute Plan: SUPPLEMENTAL OXYGEN, IV FLUIDS, IV ANTIBIOTICS, NEB TX, MUCOMYST IN NEB [place], DIFLUCAN, NYSTATIN S&S, CONTINUE HOME MEDS. MONITOR LABS AND CHEST XRAY (2) COPD exacerbation Status: Acute (3) RSV (acute bronchiolitis due to respiratory syncytial virus) Status: Acute (4) Hypoxia Status: Acute (5) Congestive heart failure Status: Chronic Qualifiers: Heart failure type: diastolic Heart failure chronicity: chronic Qualified Code(s): I50.32 - Chronic diastolic (congestive) heart failure (6) Hypertension Status: Chronic Qualifiers: Hypertension type: primary hypertension Qualified Code(s): I10 - Essential (primary) hypertension (7) Diabetes Status: Chronic Qualifiers: Diabetes mellitus type: type 2 Diabetes mellitus director clinical operations insulin use: with director clinical operations use Diabetes mellitus complication status: with hyperglycemia Qualified Code(s): E11.65 - Type 2 diabetes mellitus with hyperglycemia; Z79.4 - half-way (current) use of insulin (8) BPH (benign prostatic hyperplasia) Status: Chronic Qualifiers: Lower urinary tract symptom presence: unspecified whether lower urinary tract symptoms present Qualified Code(s): N40.0 - Benign prostatic hyperplasia without lower urinary tract symptoms (9) Atrial fibrillation Status: Chronic Qualifiers: Atrial fibrillation type: paroxysmal Qualified Code(s): I48.0 - Paroxysmal atrial fibrillation Plan: DIGOXIN 125MCG PO DAILY
[2021-10-27] MEDS: SNACK - Diabetic Appropriate PO SCH (20:00)
[2021-10-27] MEDS: MELATONIN PO SCH (20:52)
[2021-10-27] MEDS: KLONOPIN TAB 1 MG PO SCH (20:54)
[2021-10-27] MEDS: ZyrTEC TAB 10 MG PO SCH (20:54)
[2021-10-28] MEDS: FLOMAX PO SCH ×2 (03:45→08:43)
[2021-10-28 06:06] LABS: BASOPHILS % (AUTO) 0.2 % (0.2-1.0); EOSINOPHILS % (AUTO) 0.3 % (0.9-2.9); HEMATOCRIT 41.7 % (42.0-54.0); HEMOGLOBIN 14.1 g/dL (13.5-18.0); LYMPHOCYTES # (AUTO) 0.8 X10^3/uL (1.3-2.9); LYMPHOCYTES % (AUTO) 6.1 % (21.0-51.0); MEAN CORPUSCULAR HEMOGLOBIN 32.4 pg (27.0-34.0); MEAN CORPUSCULAR HGB CONC 33.7 g/dL (33.0-35.0); MEAN PLATELET VOLUME 6.9 fL (7.4-11.0); MONOCYTES # (AUTO) 0.7 x10^3/uL (0.3-0.8); MONOCYTES % (AUTO) 5.7 % (0.0-13.0); NEUTROPHILS # (AUTO) 10.9 x10^3/uL (2.2-4.8); NEUTROPHILS % (AUTO) 87.7 % (42.0-75.0); RED BLOOD COUNT 4.34 X10^6/uL (4.7-6.0); RED CELL DISTRIBUTION WIDTH 14.4 % (11.6-16.5); WHITE BLOOD COUNT 12.5 X10^3/uL (3.6-10.0)
[2021-10-28] MEDS: MUCOMYST 20% 200 MG/ML NEB SCH ×3 (06:13→21:08)
[2021-10-28] MEDS: XOPENEX 1.25 MG/3 ML NEBULE NEB SCH ×3 (06:14→21:08)
[2021-10-28 06:20] LABS: ALBUMIN 2.8 g/dL (3.4-5.0); CALCIUM 8.4 mg/dL (8.5-10.1); CARBON DIOXIDE 31.3 mmol/L (21-32); COR CA(FOR HYPOALB) 9.4 mg/dL (8.5-10.1); CREATININE 1.6 mg/dL (0.70-1.30); DIGOXIN 0.73 ng/mL (0.9-2); TOTAL PROTEIN 5.9 g/dL (6.4-8.2)
[2021-10-28 06:21] LABS: ABG ALLEN TEST POS; ABG HCO3 32.4 mmol/L (22-26)
--- NOTE | 2021-10-28 06:24 | RAD ---
HISTORYRSV, COPD EXACEBATION Relevant Clinical InformationSTUDYCHEST, 1 [id number] cardiomediastinal silhouette. Worsening left base consolidation. Otherwise unchanged diffuse interstitial thickening. Possible small left pleural effusion. No visible pneumothorax. No acute osseous finding.IMPRESSIONWorsening left base opacity.Electronically signed by: Sav Knight (Oct 28, 2021 06:22:38)
[2021-10-28] MEDS: NovoLIN R (or HumuLIN R) SUBCUT PRN ×3 (06:55→20:38)
[2021-10-28] MEDS: LEVAQUIN PREMIX IV 750 MG 750 MG/150 ML BAG IV SCH (08:30)
[2021-10-28] MEDS: DIFLUCAN PO SCH (08:32)
[2021-10-28] MEDS: COREG TAB 12.5 MG PO SCH ×2 (08:32→20:27)
[2021-10-28] MEDS: JANUVIA PO SCH (08:33)
[2021-10-28] MEDS: LANOXIN or DIGITEK PO SCH (08:35)
[2021-10-28] MEDS: ZINC SULFATE PO SCH (08:35)
[2021-10-28] MEDS: SYNTHROID 100 mcg TAB PO SCH (08:36)
[2021-10-28] MEDS: SINGULAIR TAB 10 MG PO SCH (08:36)
[2021-10-28] MEDS: NYSTATIN SUSP PO SCH ×4 (08:38→20:27)
[2021-10-28] MEDS: PriLOSEC PO SCH ×2 (08:39→20:27)
[2021-10-28] MEDS: VSL#3 PO SCH (08:40)
[2021-10-28] MEDS: ROBITUSSIN DM PO SCH ×4 (08:40→20:27)
[2021-10-28] MEDS: VITAMIN D3 125 mcg (5,000 UNITS) PO SCH (08:40)
[2021-10-28] MEDS: PULMICORT NEB TX 0.5 MG NEB SCH ×2 (09:25→21:08)
[2021-10-28 14:59] VITALS: BMI 32.7
[2021-10-28] MEDS: NS 1/2 1,000 ML IV 1,000 ML IV SCH ×2 (17:09→21:24)
[2021-10-28] MEDS ORDERED: NS 1/2 1,000 ML IV 1,000 ML IV ONE (19:45)
[2021-10-28] MEDS: ZyrTEC TAB 10 MG PO SCH (20:27)
[2021-10-28] MEDS: SNACK - Diabetic Appropriate PO SCH (20:35)
[2021-10-28] MEDS: MELATONIN PO SCH (21:58)
[2021-10-28] MEDS: KLONOPIN TAB 1 MG PO SCH (21:58)
[2021-10-29] MEDS: NS 1/2 1,000 ML IV 1,000 ML IV SCH (06:06)
[2021-10-29 06:19] LABS: BASOPHILS % (AUTO) 0.2 % (0.2-1.0); EOSINOPHILS # (AUTO) 0.1 x10^3/uL (0.0-0.2); EOSINOPHILS % (AUTO) 0.9 % (0.9-2.9); HEMATOCRIT 44.2 % (42.0-54.0); HEMOGLOBIN 14.9 g/dL (13.5-18.0); LYMPHOCYTES # (AUTO) 1.1 X10^3/uL (1.3-2.9); LYMPHOCYTES % (AUTO) 7.5 % (21.0-51.0); MEAN CORPUSCULAR HEMOGLOBIN 32.6 pg (27.0-34.0); MEAN CORPUSCULAR HGB CONC 33.8 g/dL (33.0-35.0); MEAN CORPUSCULAR VOLUME 96.4 fL (80.0-100.0); MEAN PLATELET VOLUME 6.6 fL (7.4-11.0); MONOCYTES # (AUTO) 0.6 x10^3/uL (0.3-0.8); MONOCYTES % (AUTO) 4.5 % (0.0-13.0); NEUTROPHILS # (AUTO) 12.3 x10^3/uL (2.2-4.8); NEUTROPHILS % (AUTO) 86.9 % (42.0-75.0); RED BLOOD COUNT 4.58 X10^6/uL (4.7-6.0); RED CELL DISTRIBUTION WIDTH 14.3 % (11.6-16.5); WHITE BLOOD COUNT 14.2 X10^3/uL (3.6-10.0)
[2021-10-29] MEDS: MUCOMYST 20% 200 MG/ML NEB SCH (06:24)
[2021-10-29] MEDS: XOPENEX 1.25 MG/3 ML NEBULE NEB SCH (06:24)
--- NOTE | 2021-10-29 06:34 | RAD ---
HISTORYSOB HX: CHF, HTN, COPD, EMPHYSEMA, DM SX: AAA REPAIR, GBSTUDYCHEST, 1 [id number] trachea is midline. The cardiac silhouette is unremarkable. Left basilar consolidation unchanged. There is new patchy consolidation in the right lung base. No pneumothorax. The bony thorax is unremarkable.IMPRESSIONLeft basilar consolidation unchanged with new patchy consolidation within the right lung base from previous 10/28/2021..Electronically signed by: Milton Giraldo (Oct 29, 2021 06:32:18)
[2021-10-29 06:37] LABS: ALBUMIN 3.1 g/dL (3.4-5.0); CALCIUM 8.5 mg/dL (8.5-10.1); CARBON DIOXIDE 33.3 mmol/L (21-32); COR CA(FOR HYPOALB) 9.2 mg/dL (8.5-10.1); CREATININE 1.65 mg/dL (0.70-1.30); DIGOXIN 0.88 ng/mL (0.9-2); TOTAL PROTEIN 6.3 g/dL (6.4-8.2)
[2021-10-29 07:47] VITALS: BP 115/77
[2021-10-29] MEDS: VSL#3 PO SCH (08:11)
[2021-10-29] MEDS: NYSTATIN SUSP PO SCH (08:11)
[2021-10-29] MEDS: COREG TAB 12.5 MG PO SCH (08:17)
[2021-10-29] MEDS: JANUVIA PO SCH (08:17)
[2021-10-29] MEDS: ZINC SULFATE PO SCH (08:18)
[2021-10-29] MEDS: PriLOSEC PO SCH (08:19)
[2021-10-29] MEDS: DIFLUCAN PO SCH (08:19)
[2021-10-29] MEDS: FLOMAX PO SCH (08:21)
[2021-10-29] MEDS: LEVAQUIN PREMIX IV 750 MG 750 MG/150 ML BAG IV SCH (08:22)
[2021-10-29] MEDS: LANOXIN or DIGITEK PO SCH (08:22)
[2021-10-29] MEDS: ROBITUSSIN DM PO SCH (08:22)
[2021-10-29] MEDS: SYNTHROID 100 mcg TAB PO SCH (08:23)
[2021-10-29] MEDS: SINGULAIR TAB 10 MG PO SCH (08:23)
[2021-10-29] MEDS: VITAMIN D3 125 mcg (5,000 UNITS) PO SCH (08:23)
[2021-10-29] MEDS: PULMICORT NEB TX 0.5 MG NEB SCH (09:30)
--- NOTE | 2021-10-29 12:17 | PCM.PROG ---
Progress Note - Progress Note for Day of Date of Exam: 10/28/21 - Subjective Subjective: IS CURRENTLY INPATIENT STATUS FOR TREATMENT OF BRONCHOPNEUMONIA, RSV, AND COPD EXACERBATION. HE HAS A HX OF HTN, CHF, AND RENAL FAILURE. TODAY, HE IS ALERT AND ORIENTED, SITTING UP IN BED ON MORNING ROUNDS. HE CONTINUES WITH SHORTNESS OF BREATH AND A DRY COUGH THIS MORNING. HE ADMITS TO SLIGHT IMPROVEMENT IN SYMPTOMS TODAY. HE DOES REPORT PERSISTENT GENERALIZED WEAKNESS. DURING THE NIGHT, HE DID HAVE A RUN OF A-FIB WITH RVR, HEARTRATE 110- 140 BPM. HE WAS GIVEN DIGOXIN 500MCG IV X 1 DOSE. HEARTRATE RETURNED TO NORMAL AFTER RECEIVING DIGOXIN. ON EXAMINATION, HEART IS REGULAR IN RATE AND RHYTHM. HE HAS BEEN TACHY AT TIMES. BILATERAL LUNGS ARE NOTED WITH DIMINISHED LUNG SOUNDS T HROUGHOUT. ABDOMEN IS OBESE, NON-TENDER. NORMAL BOWEL SOUNDS NOTED IN ALL QUADRNATS. NO UPPER OR LOWER EXTREMITY EDEMA NOTED. HE IS CURRENTLY UTILIZING OXYGEN VIA NASAL CANNULA AT 3 LPM. HIS OXYGEN SATURATIONS HAVE REMAINED IN THE 90s. HIS VITALS THIS MORNING ARE: 97.2-84-18-98%-128/76. LABS WERE OBTAINED. WBC 12.5, RBC 4.34, HGB 14.1, HCT 41.7, PLT COUNT 188, SODIUM 137, POTASSIUM 5.0, BUN 37, CREATININE 1.60, GLUCOSE 212, CALCIUM 8.4, AST 12, ALT 37, ALK PHOS 84, TOTAL PROTEIN 5.9, ALBUMIN 2.8. SPUTUM CULTURE IS POSITIVE FOR GROWTH OF ENTEROBACTER AEROGENES. A CHEST XRAY WAS OBTAINED AND REVEALED: Worsening left base opacity. HE IS CURRENTLY RECEIVING 1/2NS AT 20 ML/HR, LEVAQUIN 750MG IV Q 48H, XOPENEX NEB TX TID, PULMICORT NEBS BID, MUCOMYST IN NEB [place] TID, SOLU-MEDROL 20MG IV Q8H, CLONAZEPAM 1MG PO HS, DIFLUCAN 100MG PO DAILY, DIGOXIN 125MCG PO DAILY, NYSTATIN SWISH AND SWALLOW 5ML PO QID, TUSSIONEX 5ML PO Q12H PRN, ROBITUSSIN DM 10ML PO QID, TESSALON PERLES 100MG PO TID PRN, HUMULIN R SLIDING SCALE, OTBS ACHS, AND HIS HOME MEDICATIONS WERE RESUMED. WE WILL CONTINUE WITH CURRENT PLAN OF CARE TODAY. OTHERWISE, WE PLAN TO FOLLOW UP WITH AM LABS AND CONTINUE TO MONITOR. TIME SPENT ON CLINICAL ASSESSMENT, REVIWING LABS AND IMAGING, DECISION MAKING, AND DOCUMENTATION GREATER THAN 45 MINUTES. - Past Medical Family Social History Past Med/Fam/Surg Hx: No changes since H&P Allergies: Allergies codeine Allergy (Verified 10/18/21 15:12) latex Allergy (Verified 05/03/18 08:54) TERAMYCIN Allergy (Uncoded 05/03/18 08:54) - Review of Systems ROS: No change since H&P - Vital Signs and I&O's Vital Signs: Temperature 98.8 F Pulse Rate [Left Brachial] 90 Pulse Rate 81 Respiratory Rate 20 Blood Pressure [Right Arm] 115/77 Blood Pressure [Left Arm] 148/69 Blood Pressure 153/88 O2 Sat by Pulse Oximetry 98 Intake and Output: Intake & Output 10/27/21 10/28/21 10/29/21 10/30/21 11:59 11:59 11:59 11:59 Intake Total 2436 / 2436 3411 / 3411 1570 / 1570 Output Total 2800 / 2800 3575 / 3575 2400 / 2400 Balance -364 / -364 -164 / -164 -830 / -830 - Physical Exam Oriented: Normal Eyes: Normal Ear: Normal Nose: Normal Throat: Normal Respiratory: Generalized, Diminished Cardiovascular: Normal : Normal Auscultation: Bowel Sounds: Normal Palpation: Normal Tenderness: Normal Skin: Normal Musculoskeletal: Normal Psychiatric: Normal Mood Description: Calm Affect: Normal Speech Pattern: Clear - Laboratory and Diagnostics Result Diagrams: 10/29/21 05:40 10/29/21 05:40 Labs: 10/18/21 14:15 Blood Blood Culture - Final 10/18/21 13:40 Blood Blood Culture - Final 10/18/21 14:00 Sputum - Expectorated Sputum Sputum Culture - Preliminary Enterobacter Aerogenes 10/18/21 14:00 Sputum - Expectorated Sputum - Final Laboratory WBC 14.2 X10^3/uL (3.6-10.0) H 10/29/21 05:40 RBC 4.58 X10^6/uL (4.7-6.0) L 10/29/21 05:40 Hgb 14.9 g/dL (13.5-18.0) 10/29/21 05:40 Hct 44.2 % (42.0-54.0) 10/29/21 05:40 MCV 96.4 fL (80.0-100.0) 10/29/21 05:40 MCH 32.6 pg (27.0-34.0) 10/29/21 05:40 MCHC 33.8 g/dL (33.0-35.0) 10/29/21 05:40 RDW 14.3 % (11.6-16.5) 10/29/21 05:40 Plt Count 182 X10^3/uL (150.0-450.0) 10/29/21 05:40 Plt Count Comment Adequate (ADEQUATE) 10/27/21 05:28 MPV 6.6 fL (7.4-11.0) L 10/29/21 05:40 Neut % (Auto) 86.9 % (42.0-75.0) H 10/29/21 05:40 Lymph % (Auto) 7.5 % (21.0-51.0) L 10/29/21 05:40 Young % (Auto) 4.5 % (0.0-13.0) 10/29/21 05:40 Eos % (Auto) 0.9 % (0.9-2.9) 10/29/21 05:40 Baso % (Auto) 0.2 % (0.2-1.0) 10/29/21 05:40 Neut # (Auto) 12.3 x10^3/uL (2.2-4.8) H 10/29/21 05:40 Lymph # (Auto) 1.1 X10^3/uL (1.3-2.9) L 10/29/21 05:40 Young # (Auto) 0.6 x10^3/uL (0.3-0.8) 10/29/21 05:40 Eos # (Auto) 0.1 x10^3/uL (0.0-0.2) 10/29/21 05:40 Baso # (Auto) 0.0 X10^3/uL (0.0-0.1) 10/29/21 05:40 Absolute Nucleated RBC 0.0 /100WBC 10/29/21 05:40 Total Counted 100 10/27/21 05:28 Neutrophils % (Manual) 90 % (39-76) H 10/27/21 05:28 Band Neutrophils % 2 % (0-10) 10/27/21 05:28 Lymphocytes % (Manual) 3 % (13-43) L 10/27/21 05:28 Monocytes % (Manual) 5 % (4-9) 10/27/21 05:28 Plt Morphology Comment Normal (NORMAL) 10/27/21 05:28 RBC Morphology Normal (NORMAL) 10/27/21 05:28 Sample Site Lr 10/28/21 06:10 ABG pH 7.340 (7.35-7.45) L 10/28/21 06:10 ABG pCO2 60.0 mmHg (35.0-45.0) H* 10/28/21 06:10 ABG pO2 88.0 mmHg (80.0-100.0) 10/28/21 06:10 ABG HCO3 32.4 mmol/L (22-26) H* 10/28/21 06:10 ABG O2 Saturation 96.0 % (90-100) 10/28/21 06:10 ABG Base Excess 5.0 mmol/L (-2.0-2.0) H 10/28/21 06:10 Sudeep Test Pos 10/28/21 06:10 A-a Gradient 65.0 mmHg 10/28/21 06:10 FiO2 32.0 10/28/21 06:10 Blood Gas Comments Familia well ae 10/28/21 06:10 Sodium 138 mmol/L (136-145) 10/29/21 05:40 Corrected Sodium 139 mmol/L (136-145) 10/29/21 05:40 Potassium 5.0 mmol/L (3.5-5.1) 10/29/21 05:40 Chloride 101 mmol/L (98-107) 10/29/21 05:40 Carbon Dioxide 33.3 mmol/L (21-32) H 10/29/21 05:40 BUN 34 mg/dL (7-18) H 10/29/21 05:40 Creatinine 1.65 mg/dL (0.70-1.30) H 10/29/21 05:40 Est GFR (MDRD) Af Amer 52 (>60) L 10/29/21 05:40 Est GFR (MDRD) Non-Af 43 (>60) L 10/29/21 05:40 Glucose 136 mg/dL (65-99) H 10/29/21 05:40 POC Glucose (mg/dL) 138 mg/dL (65-99) H 10/29/21 05:33 Calcium 8.5 mg/dL (8.5-10.1) 10/29/21 05:40 Corrected Calcium 9.2 mg/dL (8.5-10.1) 10/29/21 05:40 Total Bilirubin 0.50 mg/dL (0.2-1.0) 10/29/21 05:40 AST 13 Units/L (15-37) L 10/29/21 05:40 ALT 38 Units/L (12-78) 10/29/21 05:40 Alkaline Phosphatase 66 Units/L (46-116) 10/29/21 05:40 C-Reactive Protein 27.80 mg/L (0-3.0) H 10/18/21 13:40 B-Natriuretic Peptide 403 pg/mL (0-79) H 10/29/21 05:40 Total Protein 6.3 g/dL (6.4-8.2) L 10/29/21 05:40 Albumin 3.1 g/dL (3.4-5.0) L 10/29/21 05:40 Globulin 3.2 g/dL (2.5-4.5) 10/29/21 05:40 Albumin/Globulin Ratio 1.0 Ratio (1.1-2.1) L 10/29/21 05:40 Specimen Type Clean catch urine 10/18/21 13:20 Urine Color Yellow (YELLOW) 10/18/21 13:20 Urine Appearance Clear (CLEAR) 10/18/21 13:20 Urine pH 6.0 (5.0 - 8.0) 10/18/21 13:20 Ur Specific [place] 1.005 (1.000-1.030) 10/18/21 13:20 Urine Protein Negative (NEGATIVE) 10/18/21 13:20 Urine Glucose (UA) Negative (NEGATIVE) 10/18/21 13:20 Urine Ketones Negative (NEGATIVE) 10/18/21 13:20 Urine Blood Negative (NEGATIVE) 10/18/21 13:20 Urine Nitrite Negative (NEGATIVE) 10/18/21 13:20 Urine Bilirubin Negative (NEGATIVE) 10/18/21 13:20 Urine Urobilinogen Normal (NORMAL) 10/18/21 13:20 Ur Leukocyte Esterase Negative (NEGATIVE) 10/18/21 13:20 Digoxin 0.88 ng/mL (0.9-2) L 10/29/21 05:40 SARS-CoV-2 (PCR) Negative (NEGATIVE) 10/20/21 10:58 Influenza Type A (PCR) Negative (NEGATIVE) 10/20/21 10:58 Influenza Type B (PCR) Negative (NEGATIVE) 10/20/21 10:58 RSV (PCR) Positive (NEGATIVE) A 10/20/21 10:58 - Plan (1) Bronchopneumonia Status: Acute Plan: SUPPLEMENTAL OXYGEN, IV FLUIDS, IV ANTIBIOTICS, NEB TX, MUCOMYST IN NEB [place], DIFLUCAN, NYSTATIN S&S, CONTINUE HOME MEDS. MONITOR LABS AND CHEST XRAY (2) COPD exacerbation Status: Acute (3) RSV (acute bronchiolitis due to respiratory syncytial virus) Status: Acute (4) Hypoxia Status: Acute (5) Congestive heart failure Status: Chronic Qualifiers: Heart failure type: diastolic Heart failure chronicity: chronic Qualified Code(s): I50.32 - Chronic diastolic (congestive) heart failure (6) Hypertension Status: Chronic Qualifiers: Hypertension type: primary hypertension Qualified Code(s): I10 - Essential (primary) hypertension (7) Diabetes Status: Chronic Qualifiers: Diabetes mellitus type: type 2 Diabetes mellitus medical terminologist insulin use: with medical terminologist use Diabetes mellitus complication status: with hyperglycemia Qualified Code(s): E11.65 - Type 2 diabetes mellitus with hyperglycemia; Z79.4 - termite control technician (current) use of insulin (8) BPH (benign prostatic hyperplasia) Status: Chronic Qualifiers: Lower urinary tract symptom presence: unspecified whether lower urinary tract symptoms present Qualified Code(s): N40.0 - Benign prostatic hyperplasia without lower urinary tract symptoms (9) Atrial fibrillation Status: Chronic Qualifiers: Atrial fibrillation type: paroxysmal Qualified Code(s): I48.0 - Paroxysmal atrial fibrillation Plan: DIGOXIN 125MCG PO DAILY
== END 2021-10-29 10:17 | disposition home or self-care (01) | DRG 190 ==
LOC: MED/SURG
PROVIDERS: ADMIT Internal Medicine; ATTEND Internal Medicine
DX: J15.6 Pneumonia due to other Gram-negative bacteria; N17.8 Other acute kidney failure; I50.32 Chronic diastolic (congestive) heart failure; J20.8 Acute bronchitis due to other specified organisms; K21.9 Gastro-esophageal reflux disease without esophagitis; I25.10 Atherosclerotic heart disease of native coronary artery without angina pectoris; I11.0 Hypertensive heart disease with heart failure; R06.02 Shortness of breath; Z20.822 Contact with and (suspected) exposure to COVID-19; Z79.4 Long term (current) use of insulin; J12.1 Respiratory syncytial virus pneumonia; N40.0 Benign prostatic hyperplasia without lower urinary tract symptoms; N18.4 Chronic kidney disease, stage 4 (severe); E03.8 Other specified hypothyroidism; J44.1 Chronic obstructive pulmonary disease with (acute) exacerbation; I48.0 Paroxysmal atrial fibrillation; Z99.81 Dependence on supplemental oxygen

== ENCOUNTER 2022-04-22 15:53 | Inpatient (IN) ==
--- NOTE | 2022-04-22 15:56 | DR.SOBA ---
HPI Time Seen Time Seen by Provider: 04/22/22 15:56 HPI Comment HPI Comment: A 76 y/o male presenting with increased SOB since this morning. He denies chest pain. He states that he was just discharged home from a [facility] hospital 2 days ago. He has self treated with albuterol nebs. COVID-19 Coronavirus symptoms experienced: Shortness of Breath Reviewed Nurses Notes Reviewed: Yes Source History Provided: Patient Context Onset:: At Rest PE Risk Factors:: None History of:: COPD and CHF Currently on:: Inhaled Bronchodilators Modifying Factors Worsens:: Exertion Improves:: Nothing Associated Signs and Symptoms Associated Signs and Symptoms: Anxiety If Chest Pain Quality: denies Sharp, Stabbing, Squeezing, Pressure like, Heavy, Crushing, Burning, Aching or Pleuritic PMH PMH Past Medical History: Anxiety, CHF, COPD, Diabetes, Dyslipidemia, GERD, Gout, Hypertension, Hyperthyroidism, Renal Disease and Sleep Apnea Past Surgical History: Yes Surgical History: AAA Repair and Cholecystectomy Family History Family Medical History: Diabetes Mellitus, Cancer and [place] Social History Do you use any recreational Drugs:: No ROS Review of Systems Constitutional: No Symptoms Reported Eyes: No Symptoms Reported ENTM: No Symptoms Reported Respiratoy: Short of Breath Cardiovascular: Palpitations Gastrointestinal/Abdominal: No Symptoms Reported Genitourinary: No Symptoms Reported Neurological: No Symptoms Reported Musculoskeletal: No Symptoms Reported Integumentary: No Symptoms Reported Hematologic/Lymphatic: No Symptoms Reported Endocrine: No Symptoms Reported Psychiatric: No Symptoms Reported All Other Systems: Reviewed and Negative PE Vital Signs Vitals: Temperature 98.2 F Pulse Rate 127 Respiratory Rate 37 Blood Pressure [Right Arm] 115/77 Blood Pressure [Left Arm] 148/69 Blood Pressure 141/71 O2 Sat by Pulse Oximetry 93 General Limitations: No Limitations General Appearance: Alert and In No Apparent Distress Head Head Exam: Normal Inspection, Atraumatic and Normocephalic Eyes Eye exam: Normal Appearance and EOMI ENT ENT Exam: Normal Exam, Normal Oropharynx, Normal External Ear Exam and Mucous Membranes Moist Neck Neck Exam: Normal Inspection and Full ROM Chest Chest Inspection: Normal Inspection and Symmetric Chest Wall Rise Respiratory Respiratory Exam: Bilateral: Rhonchi and Bilateral: Crackles Cardiovascular Cardiovascular Exam: Irregular Rhythm, Normal Heart Sounds, +S1 and +S2 Abdominal Exam Abdominal Exam: Normal Inspection, Normal Bowel Sounds and Soft Extremities Extremities Exam: Normal Inspection, Full ROM and Edema (1+ b/l) Back Back Exam: Normal Inspection and Full ROM Neurologic Neurological Exam: Alert and Oriented X3 Psychiatric Psychiatric Exam: Normal Affect and Normal Mood Skin Skin Exam: Dry, Intact and Normal Color COURSE Treatment Treatment: diagnostic test results were reviewed with the pt. and his spouse. I spoke with on-call provider about admission, which was agreed to. Admit orders have been written. Reevaluation 1st: Improved Education/Counseling Education/Counseling: Patient, Family, Education and Counseling Educated On: Treatment, Diagnosis, Prognosis and Needs for Follow Up ROR Labs Reviewed Result Diagrams: 04/22/22 15:55 04/22/22 15:55 Laboratory: 04/22/22 16:35 Sputum - Expectorated Sputum - Final WBC 17.7 X10^3/uL (3.6-10.0) H 04/22/22 15:55 RBC 4.42 X10^6/uL (4.7-6.0) L 04/22/22 15:55 Hgb 13.6 g/dL (13.5-18.0) 04/22/22 15:55 Hct 41.0 % (42.0-54.0) L 04/22/22 15:55 MCV 92.7 fL (80.0-100.0) 04/22/22 15:55 MCH 30.8 pg (27.0-34.0) 04/22/22 15:55 MCHC 33.2 g/dL (33.0-35.0) 04/22/22 15:55 RDW 15.4 % (11.6-16.5) 04/22/22 15:55 Plt Count 184 X10^3/uL (150.0-450.0) 04/22/22 15:55 Plt Count Comment Adequate (ADEQUATE) 04/22/22 15:55 MPV 7.1 fL (7.4-11.0) L 04/22/22 15:55 Neut % (Auto) 95.5 % (42.0-75.0) H 04/22/22 15:55 Lymph % (Auto) 2.0 % (21.0-51.0) L 04/22/22 15:55 [place] % (Auto) 2.3 % (0.0-13.0) 04/22/22 15:55 Eos % (Auto) 0.1 % (0.9-2.9) L 04/22/22 15:55 Baso % (Auto) 0.1 % (0.2-1.0) L 04/22/22 15:55 Neut # (Auto) 16.9 x10^3/uL (2.2-4.8) H 04/22/22 15:55 Lymph # (Auto) 0.4 X10^3/uL (1.3-2.9) L 04/22/22 15:55 [place] # (Auto) 0.4 x10^3/uL (0.3-0.8) 04/22/22 15:55 Eos # (Auto) 0.0 x10^3/uL (0.0-0.2) 04/22/22 15:55 Baso # (Auto) 0.0 X10^3/uL (0.0-0.1) 04/22/22 15:55 Absolute Nucleated RBC 0.0 /100WBC 04/22/22 15:55 Total Counted 100 04/22/22 15:55 Neutrophils % (Manual) 87 % (39-76) H 04/22/22 15:55 Band Neutrophils % 8 % (0-10) 04/22/22 15:55 Lymphocytes % (Manual) 3 % (13-43) L 04/22/22 15:55 Monocytes % (Manual) 2 % (4-9) L 04/22/22 15:55 Plt Morphology Comment Normal (NORMAL) 04/22/22 15:55 RBC Morphology Normal (NORMAL) 04/22/22 15:55 PT 15.3 SECONDS (11.8-14.3) 04/22/22 15:33 INR Target Range - 04/22/22 15:33 INR 1.25 (0.8-1.3) 04/22/22 15:33 APTT 27.4 SECONDS (22.9-36.5) 04/22/22 15:33 PTT Comment - 04/22/22 15:33 Sample Site [facility] 04/22/22 16:18 ABG pH 7.450 (7.35-7.45) 04/22/22 16:18 ABG pCO2 46.0 mmHg (35.0-45.0) H 04/22/22 16:18 ABG pO2 54.0 mmHg (80.0-100.0) L 04/22/22 16:18 ABG HCO3 32.0 mmol/L (22-26) H* 04/22/22 16:18 ABG O2 Saturation 89.0 % (90-100) L 04/22/22 16:18 ABG Base Excess 7.0 mmol/L (-2.0-2.0) H 04/22/22 16:18 Sudeep Test N/a 04/22/22 16:18 A-a Gradient 117.0 mmHg 04/22/22 16:18 FiO2 32.0 04/22/22 16:18 Blood Gas Comments Pt thad well elj 04/22/22 16:18 Sodium 135 mmol/L (136-145) L 04/22/22 15:55 Corrected Sodium 140 mmol/L (136-145) 04/22/22 15:55 Potassium 4.8 mmol/L (3.5-5.1) 04/22/22 15:55 Chloride 98 mmol/L (98-107) 04/22/22 15:55 Carbon Dioxide 29.9 mmol/L (21-32) 04/22/22 15:55 BUN 48 mg/dL (7-18) H 04/22/22 15:55 Creatinine 2.39 mg/dL (0.70-1.30) H 04/22/22 15:55 Est GFR (MDRD) Af Amer 34 (>60) L 04/22/22 15:55 Est GFR (MDRD) Non-Af 28 (>60) L 04/22/22 15:55 Glucose 311 mg/dL (65-99) H 04/22/22 15:55 Lactic Acid 4.2 mmol/L (0.4-2.0) H 04/22/22 16:35 Calcium 7.8 mg/dL (8.5-10.1) L 04/22/22 15:55 Corrected Calcium 8.4 mg/dL (8.5-10.1) L 04/22/22 15:55 Phosphorus 3.7 mg/dL (2.6-4.7) 04/22/22 15:33 Magnesium 1.9 mg/dL (2.0-2.9) L 04/22/22 15:33 Total Bilirubin 0.60 mg/dL (0.2-1.0) 04/22/22 15:55 AST 14 Units/L (15-37) L 04/22/22 15:55 ALT 30 Units/L (12-78) 04/22/22 15:55 Alkaline Phosphatase 64 Units/L (46-116) 04/22/22 15:55 Creatine Kinase 50 Units/L (39-308) 04/22/22 15:33 Total Protein 6.8 g/dL (6.4-8.2) 04/22/22 15:55 Albumin 3.2 g/dL (3.4-5.0) L 04/22/22 15:55 Globulin 3.6 g/dL (2.5-4.5) 04/22/22 15:55 Albumin/Globulin Ratio 0.9 Ratio (1.1-2.1) L 04/22/22 15:55 Amylase 28 Units/L (25-115) 04/22/22 15:33 Lipase 90 Units/L (73-393) 04/22/22 15:33 TSH 3rd Generation 1.912 uIU/mL (0.358-3.74) 04/22/22 15:55 XRAY XRAY Interpreted by: Self X-ray Results: CXR: moderate cardiomegaly. Interstitial lung disease pattern, unchanged from previous. Radiologist report is pending. EKG Rate: 103 Wright: LAD Rhythm: Afib Block: IVCD Hypertrophy: None ST: Normal Opioid Opioid Risk Tool Age (Delgado box if 16-45): No History of Preadolescent Sexual Abuse: No Total: 0 Total Score Risk Category: Low Risk Copyright: [facility] predicting aberrant behaviors Discharge Plan Diagnosis Discharge Problem: Atrial fibrillation, CKD (chronic kidney disease) stage 4, GFR 15-29 ml/min Discharge Plan Patient Disposition: ADMITTED INPATIENT Condition: Stable Orders to Discharge Patient Discharge Orders: Transfer (Routine); Ordered 04/22/22 Ordered By: IGOR OLIVEROS ADDITIONAL NOTES Additional Notes Additional Notes: Name: ADELFO VALDOVINOS[facility]#: [id number]: [id number]: [id number]: MLocation: EROrder Number(s): [id number](s):CHEST, 1 VIEW Ordering Physician: IGOR OLIVEROS Primary Care: Mohit Lorenzana Service Date: 04/22/22 Service Time: 1557 EXAM: CHEST X-RAY HISTORY: Shortness of breath. Generalized weakness. TECHNIQUE: AP CXR dated April 22, 2022 at 4:42 PM. COMPARISON: CXR dated December 27, 2021. FINDINGS: There is evidence for cardiomegaly. The pulmonary vascularity and interstitial markings are diffusely prominent, consistent with mild CHF or volume overload in the appropriate clinical setting; differential diagnosis includes (but is not limited to) mild bronchitis and interstitial pneumonia in the appropriate clinical setting. There is no gross focal lung consolidation, pleural effusion, or pneumothorax seen. The visualized bony structures are within normal limits. IMPRESSION: 1. Findings consistent with mild CHF or volume overload in the appropriate clinical setting (with relatively mild appearance of infiltrates compared with the previous exam); DDX includes (but is not limited to) mild bronchitis and interstitial pneumonia in the appropriate clinical setting. 2. Recommend clinical correlation and appropriate follow-up CXR evaluation to ensure interval clearance as clinically warranted. 3. Consider follow-up noncontrast chest CT for further characterization as clinically warranted. Electronically signed by: Cori Blanco (Apr 22, 2022 16:47:11) Report Electronically signed: 04/22/22 1648 CC: Igor Oliveros
[2022-04-22 15:59] VITALS: BMI 31.0
--- NOTE | 2022-04-22 16:08 | EKG ---
Test Reason : sob Blood Pressure : */* mmHG Vent. Rate : 103 BPM Atrial Rate : * BPM P-R Int : * ms QRS Dur : 106 ms QT Int : 322 ms P-R-T Axes : * -54 108 degrees QTc Int : 421 ms Atrial fibrillation with rapid ventricular response Left axis deviation Incomplete left bundle branch block Abnormal QRS-T angle, consider primary T wave abnormality Abnormal ECG No previous ECGs available Confirmed by Davi Sawyer ([id number]) on 04/23/2022 6:06:05 PM Referred By: Confirmed By: Davi Sawyer
[2022-04-22] MEDS ORDERED: DECADRON INJ ONE (16:17)
[2022-04-22] MEDS ORDERED: XOPENEX 1.25 MG/3 ML NEBULE NEB ONE (16:17)
[2022-04-22 16:21] LABS: BASOPHILS % (AUTO) 0.1 % (0.2-1.0); EOSINOPHILS % (AUTO) 0.1 % (0.9-2.9); HEMOGLOBIN 13.6 g/dL (13.5-18.0); LYMPHOCYTES # (AUTO) 0.4 X10^3/uL (1.3-2.9); MEAN CORPUSCULAR HEMOGLOBIN 30.8 pg (27.0-34.0); MEAN CORPUSCULAR HGB CONC 33.2 g/dL (33.0-35.0); MEAN CORPUSCULAR VOLUME 92.7 fL (80.0-100.0); MEAN PLATELET VOLUME 7.1 fL (7.4-11.0); MONOCYTES # (AUTO) 0.4 x10^3/uL (0.3-0.8); MONOCYTES % (AUTO) 2.3 % (0.0-13.0); NEUTROPHILS # (AUTO) 16.9 x10^3/uL (2.2-4.8); NEUTROPHILS % (AUTO) 95.5 % (42.0-75.0); RED BLOOD COUNT 4.42 X10^6/uL (4.7-6.0); RED CELL DISTRIBUTION WIDTH 15.4 % (11.6-16.5); WHITE BLOOD COUNT 17.7 X10^3/uL (3.6-10.0)
[2022-04-22 16:32] LABS: ALBUMIN 3.2 g/dL (3.4-5.0); CALCIUM 7.8 mg/dL (8.5-10.1); CARBON DIOXIDE 29.9 mmol/L (21-32); COR CA(FOR HYPOALB) 8.4 mg/dL (8.5-10.1); CREATININE 2.39 mg/dL (0.70-1.30); TOTAL PROTEIN 6.8 g/dL (6.4-8.2); TSH (3RD GENERATION) 1.912 uIU/mL (0.358-3.74)
[2022-04-22 16:42] LABS: BAND NEUTROPHILS % 8 % (0-10); PLATELET MORPHOLOGY COMMENT NORMAL (NORMAL)
--- NOTE | 2022-04-22 16:48 | RAD ---
EXAM: CHEST X-RAYHISTORY: Shortness of breath. Generalized weakness.TECHNIQUE: AP CXR dated April 22, 2022 at 4:42 PM.COMPARISON: CXR dated December 27, 2021.FINDINGS:There is evidence for cardiomegaly. The pulmonary vascularity and interstitial markings are diffusely prominent, consistent with mild CHF or volume overload in the appropriate clinical setting; differential diagnosis includes (but is not limited to) mild bronchitis and interstitial pneumonia in the appropriate clinical setting.There is no gross focal lung consolidation, pleural effusion, or pneumothorax seen. The visualized bony structures are within normal limits.IMPRESSION:1. Findings consistent with mild CHF or volume overload in the appropriate clinical setting (with relatively mild appearance of infiltrates compared with the previous exam); DDX includes (but is not limited to) mild bronchitis and interstitial pneumonia in the appropriate clinical setting.2. Recommend clinical correlation and appropriate follow-up CXR evaluation to ensure interval clearance as clinically warranted.3. Consider follow-up noncontrast chest CT for further characterization as clinically warranted.Electronically signed by: Cori Blanco (Apr 22, 2022 16:47:11)
[2022-04-22] MEDS ORDERED: ROCEPHIN VIAL 1 GRAM IM ONE (17:29)
[2022-04-22] MEDS ORDERED: ZITHROMAX INJ 500 MG VIAL 500 MG in NS 250 ML IV 250 ML IV SCH (17:31)
[2022-04-22] MEDS ORDERED: ZITHROMAX INJ 500 MG VIAL IV ONE (17:39)
[2022-04-22] MEDS ORDERED: ROCEPHIN VIAL 1 GRAM ONE (17:39)
[2022-04-22] MEDS ORDERED: NS 250 ML IV 250 ML IV ONE (17:39)
[2022-04-22] MEDS ORDERED: ROCEPHIN 1 GRAM IV PREMIX 1 G/50 ML IV.SOLN. IV SCH (17:50)
[2022-04-22 17:56] LABS: INR 1.25 (0.8-1.3)
[2022-04-22 18:00] LABS: MAGNESIUM 1.9 mg/dL (2.0-2.9); PHOSPHORUS 3.7 mg/dL (2.6-4.7)
[2022-04-22] MEDS ORDERED: FOLIC ACID VIT B6 VIT B12 PO SCH (18:49)
[2022-04-22] MEDS ORDERED: DUONEB 0.5 MG/3 MG (3 mL) NEB ONE (19:58)
[2022-04-22] MEDS ORDERED: MUCOMYST (RESPIRATORY USE ONLY) ONE (19:58)
[2022-04-22] MEDS ORDERED: PULMICORT NEB TX 0.5 MG NEB ONE (19:58)
[2022-04-22] MEDS: MUCOMYST 20% 200 MG/ML NEB SCH (20:57)
[2022-04-22] MEDS: PULMICORT NEB TX 0.5 MG NEB SCH (20:57)
[2022-04-22] MEDS: DUONEB 0.5 MG/3 MG (3 mL) NEB SCH (20:57)
[2022-04-22] MEDS ORDERED: XOPENEX 1.25 MG/3 ML NEBULE NEB SCH (21:00)
[2022-04-22] MEDS ORDERED: PATIENT'S HOME MEDICATION (Hydralazine 100 mg tablet) PO SCH (21:00)
[2022-04-22] MEDS ORDERED: PATIENT'S HOME MEDICATION (Zinc 50 mg Capsule) PO SCH (21:00)
[2022-04-22] MEDS ORDERED: PULMICORT NEB TX 0.5 MG NEB SCH (21:00)
[2022-04-22] MEDS: SYNTHROID 100 mcg TAB PO SCH (21:25)
[2022-04-22] MEDS: CARDIZEM TAB 30 MG PLAIN PO SCH (21:25)
[2022-04-22] MEDS: SINGULAIR TAB 10 MG PO SCH (21:25)
[2022-04-22] MEDS: COREG TAB 6.25 MG PO SCH (21:26)
[2022-04-22] MEDS: LASIX PO SCH (21:32)
[2022-04-22] MEDS: SNACK - Diabetic Appropriate PO SCH (21:33)
[2022-04-22] MEDS: MUCINEX EXPECTORANT PO SCH (21:33)
[2022-04-22] MEDS: PriLOSEC PO SCH (21:33)
[2022-04-22] MEDS: APRESOLINE TAB 25 MG PO SCH (21:34)
[2022-04-22] MEDS: NovoLIN R (or HumuLIN R) SUBCUT PRN (21:40)
[2022-04-22 22:09] LABS: BILIRUBIN,URINE NEGATIVE (NEGATIVE); BLOOD/HEMOGLOBIN,URINE NEGATIVE (NEGATIVE); GLUCOSE, URINE 3+ (NEGATIVE); KETONES,URINE NEGATIVE (NEGATIVE); LEUKOCYTE ESTERASE ,URINE NEGATIVE (NEGATIVE); NITRITES,URINE NEGATIVE (NEGATIVE); PROTEIN,URINE NEGATIVE (NEGATIVE); UROBILINOGEN,URINE NORMAL (NORMAL)
[2022-04-22 22:12] LABS: APPEARANCE,URINE CLEAR (CLEAR); COLOR,URINE PALE YELLOW (YELLOW)
[2022-04-23] MEDS ORDERED: MUCOMYST (RESPIRATORY USE ONLY) NEB SCH
[2022-04-23] MEDS ORDERED: XOPENEX 1.25 MG/3 ML NEBULE NEB SCH
[2022-04-23 04:49] LABS: BASOPHILS # (AUTO) 0.2 X10^3/uL (0.0-0.1); BASOPHILS % (AUTO) 1.1 % (0.2-1.0); EOSINOPHILS % (AUTO) 0.4 % (0.9-2.9); HEMATOCRIT 37.4 % (42.0-54.0); HEMOGLOBIN 12.4 g/dL (13.5-18.0); LYMPHOCYTES # (AUTO) 0.4 X10^3/uL (1.3-2.9); MEAN CORPUSCULAR HEMOGLOBIN 30.6 pg (27.0-34.0); MEAN CORPUSCULAR HGB CONC 33.3 g/dL (33.0-35.0); MEAN PLATELET VOLUME 7.2 fL (7.4-11.0); MONOCYTES # (AUTO) 0.6 x10^3/uL (0.3-0.8); MONOCYTES % (AUTO) 4.7 % (0.0-13.0); NEUTROPHILS # (AUTO) 12.1 x10^3/uL (2.2-4.8); NEUTROPHILS % (AUTO) 90.8 % (42.0-75.0); RED BLOOD COUNT 4.06 X10^6/uL (4.7-6.0); RED CELL DISTRIBUTION WIDTH 15.3 % (11.6-16.5); WHITE BLOOD COUNT 13.4 X10^3/uL (3.6-10.0)
[2022-04-23 04:59] LABS: ALBUMIN 2.9 g/dL (3.4-5.0); CALCIUM 7.9 mg/dL (8.5-10.1); CARBON DIOXIDE 32.1 mmol/L (21-32); COR CA(FOR HYPOALB) 8.8 mg/dL (8.5-10.1); CREATININE 2.23 mg/dL (0.70-1.30); TOTAL PROTEIN 6.1 g/dL (6.4-8.2)
[2022-04-23 05:19] LABS: BAND NEUTROPHILS % 1 % (0-10); PLATELET MORPHOLOGY COMMENT NORMAL (NORMAL)
[2022-04-23] MEDS: CARDIZEM TAB 30 MG PLAIN PO SCH ×3 (05:47→21:01)
[2022-04-23] MEDS: PULMICORT NEB TX 0.5 MG NEB SCH ×2 (08:22→20:15)
[2022-04-23] MEDS: DUONEB 0.5 MG/3 MG (3 mL) NEB SCH ×6 (08:23→20:15)
[2022-04-23] MEDS: MUCOMYST 20% 200 MG/ML NEB SCH ×5 (08:23→20:15)
[2022-04-23] MEDS ORDERED: ZITHROMAX TAB 250 MG PO SCH (09:00)
[2022-04-23] MEDS ORDERED: ROCEPHIN VIAL 1 GRAM 1 G in NS 100 ML IV 100 ML IV SCH (09:00)
[2022-04-23] MEDS ORDERED: VITAMIN E 400 UNIT PO SCH (09:00)
[2022-04-23] MEDS ORDERED: BUMEX TAB 1 MG PO SCH (09:00)
[2022-04-23] MEDS ORDERED: PATIENT'S HOME MEDICATION (Fluticasone-Umeclidin-Vilanter [Trelegy Ellipta] 100-62.5-25 mc IN SCH (09:00)
[2022-04-23] MEDS: APRESOLINE TAB 25 MG PO SCH ×2 (10:00→21:00)
[2022-04-23] MEDS: ZINC SULFATE PO SCH ×2 (10:00→21:04)
[2022-04-23] MEDS: AVODART PO SCH (10:00)
[2022-04-23] MEDS: SINGULAIR TAB 10 MG PO SCH (10:01)
[2022-04-23] MEDS: TRICOR TAB 145 MG PO SCH (10:01)
[2022-04-23] MEDS: VITAMIN D3 125 mcg (5,000 UNITS) PO SCH (10:01)
[2022-04-23] MEDS: PREDNISONE TAB 20 MG PO SCH (10:02)
[2022-04-23] MEDS: MUCINEX EXPECTORANT PO SCH ×2 (10:02→21:01)
[2022-04-23] MEDS: PriLOSEC PO SCH ×2 (10:02→20:59)
[2022-04-23] MEDS: FOLTX PO SCH (10:03)
[2022-04-23] MEDS: JANUVIA PO SCH (10:03)
[2022-04-23] MEDS: MIRALAX POWDER (255 GRAMS BTL) PO SCH (10:03)
[2022-04-23] MEDS: LASIX PO SCH ×2 (10:03→16:42)
[2022-04-23] MEDS: COREG TAB 6.25 MG PO SCH ×2 (10:04→20:58)
[2022-04-23] MEDS: FLOMAX PO SCH (10:04)
[2022-04-23] MEDS: NovoLIN R (or HumuLIN R) SUBCUT PRN ×3 (12:06→21:39)
[2022-04-23] MEDS ORDERED: NS 250 ML IV 250 ML IV ONE (12:45)
[2022-04-23] MEDS: FORTAZ or TAZICEF VIAL INJ 1 G in NS 100 ML IV 100 ML IV SCH ×2 (12:51→20:52)
[2022-04-23] MEDS ORDERED: LEVAQUIN PREMIX IV 750 MG 750 MG/150 ML BAG IV SCH ×2 (13:00→14:30)
--- NOTE | 2022-04-23 17:41 | CT ---
HISTORYSOB, HYPOXIASTUDYCHEST W/O CONCOMPARISONChest radiograph 04/22/[address] 05/15/2021TECHNIQUEMultiple CT axial images of the chest were obtained without IV contrast. Coronal and sagittal images were reconstructed. Dose reduction techniques included Automated Exposure Control (AEC) and adjustment of mA and kV.FINDINGSCardiomegaly is present. The heart is larger than on the prior study.Atherosclerotic calcification is present in the coronary arteries.Pulmonary artery is dilated measuring 3.5 cm, larger than on the prior study. This can be seen with pulmonary arterial hypertension. Aorta has a normal caliber.No mediastinal mass or significant lymphadenopathy. The thyroid has a normal size and configuration. No axillary mass or significant axillary lymphadenopathy is identified.Very small right and trace left pleural effusions are new since prior study. There is more interlobular septal thickening than previously. And vague opacity in the dependent lungs, mostly in the lower lobes. This finding may be due to pulmonary edema. In the setting of cardiomegaly with effusions, this suggests congestive heart failure.Emphysematous changes are present. No pneumothorax.Small left kidney is noted. Surgical clips are present in the gallbladder fossa from a cholecystectomy. Stent graft is present in the lower aorta.Degenerative changes are present in the spine.IMPRESSION1. New cardiomegaly with findings suggesting CHF2. Dilated pulmonary artery suggesting pulmonary arterial hypertension3. EmphysemaElectronically signed by: Raphael Le (Apr 23, 2022 17:40:57)
[2022-04-23] MEDS: COLACE CAP 100 MG PO SCH (20:59)
[2022-04-23] MEDS: KLONOPIN TAB 1 MG PO PRN (21:02)
[2022-04-23] MEDS: SYNTHROID 100 mcg TAB PO SCH (21:03)
[2022-04-23] MEDS: SNACK - Diabetic Appropriate PO SCH (21:06)
[2022-04-23] MEDS: TESSALON PERLES PO PRN (21:27)
[2022-04-24] MEDS: TESSALON PERLES PO PRN ×2 (03:37→21:17)
[2022-04-24 05:27] LABS: BASOPHILS % (AUTO) 0.2 % (0.2-1.0); EOSINOPHILS % (AUTO) 0.1 % (0.9-2.9); HEMATOCRIT 36.7 % (42.0-54.0); HEMOGLOBIN 12.4 g/dL (13.5-18.0); LYMPHOCYTES % (AUTO) 7.3 % (21.0-51.0); MEAN CORPUSCULAR HEMOGLOBIN 30.9 pg (27.0-34.0); MEAN CORPUSCULAR HGB CONC 33.8 g/dL (33.0-35.0); MEAN CORPUSCULAR VOLUME 91.5 fL (80.0-100.0); MEAN PLATELET VOLUME 7.1 fL (7.4-11.0); MONOCYTES # (AUTO) 0.7 x10^3/uL (0.3-0.8); MONOCYTES % (AUTO) 5.3 % (0.0-13.0); NEUTROPHILS # (AUTO) 11.9 x10^3/uL (2.2-4.8); NEUTROPHILS % (AUTO) 87.1 % (42.0-75.0); RED BLOOD COUNT 4.01 X10^6/uL (4.7-6.0); RED CELL DISTRIBUTION WIDTH 15.2 % (11.6-16.5); WHITE BLOOD COUNT 13.6 X10^3/uL (3.6-10.0)
[2022-04-24 05:40] LABS: ALBUMIN 2.8 g/dL (3.4-5.0); CALCIUM 7.8 mg/dL (8.5-10.1); CARBON DIOXIDE 32.7 mmol/L (21-32); COR CA(FOR HYPOALB) 8.8 mg/dL (8.5-10.1); CREATININE 2.19 mg/dL (0.70-1.30); TOTAL PROTEIN 6.1 g/dL (6.4-8.2)
[2022-04-24] MEDS: CARDIZEM TAB 30 MG PLAIN PO SCH ×3 (05:46→21:11)
[2022-04-24] MEDS: PULMICORT NEB TX 0.5 MG NEB SCH ×2 (08:34→20:55)
[2022-04-24] MEDS: DUONEB 0.5 MG/3 MG (3 mL) NEB SCH ×4 (08:34→20:55)
[2022-04-24] MEDS: MUCOMYST 20% 200 MG/ML NEB SCH ×4 (08:34→20:55)
[2022-04-24] MEDS: PriLOSEC PO SCH ×2 (08:36→21:09)
[2022-04-24] MEDS: FORTAZ or TAZICEF VIAL INJ 1 G in NS 100 ML IV 100 ML IV SCH ×2 (08:37→21:13)
[2022-04-24] MEDS: LASIX PO SCH (08:37)
[2022-04-24] MEDS: COLACE CAP 100 MG PO SCH ×2 (08:37→21:13)
[2022-04-24] MEDS: COREG TAB 6.25 MG PO SCH ×2 (08:38→21:09)
[2022-04-24] MEDS: JANUVIA PO SCH (08:38)
[2022-04-24] MEDS: TRICOR TAB 145 MG PO SCH (08:38)
[2022-04-24] MEDS: FLOMAX PO SCH (08:38)
[2022-04-24] MEDS: VITAMIN D3 125 mcg (5,000 UNITS) PO SCH (08:39)
[2022-04-24] MEDS: ZINC SULFATE PO SCH ×2 (08:39→21:12)
[2022-04-24] MEDS: PREDNISONE TAB 20 MG PO SCH (08:39)
[2022-04-24] MEDS: SINGULAIR TAB 10 MG PO SCH (08:39)
[2022-04-24] MEDS: AVODART PO SCH (08:39)
[2022-04-24] MEDS: FOLTX PO SCH (08:39)
[2022-04-24] MEDS: MUCINEX EXPECTORANT PO SCH ×2 (08:40→21:14)
[2022-04-24] MEDS: MIRALAX POWDER (255 GRAMS BTL) PO SCH (08:45)
[2022-04-24] MEDS ORDERED: MAGNESIUM SULFATE 1 GRAM/100 mL PREMIX 1 G/100 ML BAG IV PRN (09:34)
[2022-04-24] MEDS ORDERED: POTASSIUM CHL 40 MEQ/NS 0.45% 500 ML IV PRN (09:34)
[2022-04-24] MEDS ORDERED: MICRO K EXTEN CAP 10 MEQ PO PRN (09:34)
[2022-04-24] MEDS ORDERED: KLOR-CON PO PRN (09:34)
[2022-04-24] MEDS ORDERED: POTASSIUM CHLORIDE LIQ 20 MEQ UDC PO PRN (09:34)
[2022-04-24] MEDS ORDERED: POTASSIUM CHL 60 MEQ/NS 0.45% 500 ML IV PRN (09:34)
[2022-04-24] MEDS ORDERED: K-RIDER 10 MEQ/NS 100 ML 10 MEQ/100 ML BAG IV PRN (09:34)
[2022-04-24] MEDS ORDERED: K-DUR TAB 20 MEQ PO PRN (09:34)
[2022-04-24] MEDS ORDERED: TUSSIONEX PENNKINETIC SUSP PO PRN (09:50)
[2022-04-24] MEDS: APRESOLINE TAB 25 MG PO SCH ×2 (10:35→21:15)
[2022-04-24] MEDS ORDERED: DIFLUCAN 200 MG IV PREMIX* 200 MG/100 ML BAG IV SCH (11:00)
--- NOTE | 2022-04-24 11:43 | DR.H&P ---
H&P - History & Physical for Day of: H&P Date: 04/22/22 - Chief Complaint Chief Complaint: SOB, WEAKNESS - History of Present Illness History of Present Illness: IS A 76 YEAR OLD PATIENT OF OURS. HE PRESENTED TO THE HOSPITAL WITH COMPLAINTS OF INCREASING SHORTNESS OF BREATH FOR THE PAST SEVERAL HOURS. HE DENIES CHEST PAIN. PATIENT REPORTS BEING DISCHARGED FROM THE HOSPITAL IN [place], [place] TWO DAYS AGO, WHERE HE WAS TREATED FOR PNEUMONIA, CHF, COPD EXACERBATION, AND ATRIAL FIBRILLATION. HIS PMH INCLUDES: ANXIETY, CHF, COPD, DM II, NEW DX OF A-FIB, DYSLIPIDEMIA, GERD, GOUT, HTN, HYPERTHYROIDISM, RENAL DISEASE, SLEEP APNEA, AAA REPAIR, AND CHOLECYSTECTOMY. UPON EXAMINATION, PATIENT WAS NOTED TO HAVE SCATTERED WHEEZING AND RHONCHI. BILATERAL LOWER EXTREMITIES WERE NOTED WITH 1+ PITTING EDEMA. ON ARRIVAL TO THE HOSPITAL, HIS VITALS WERE: 98.2-114-25-97%-140/68. LABS WERE OBTAINED. WBC 17.7, RBC 4.42, HGB 13.6, HCT 41.0, PLT COUNT 184, SODIUM 135, POTASSIUM 4.8, CHLORIDE 98, BUN 48, CREATININE 2.39, GLUCOSE 311, CALCIUM 7.8, PHOSPHORUS 3.7, MAGNESIUM 1.9, AST 14, ALT 30, ALK PHOS 64, LACTIC ACID 4.2, AST 14, ALT 30, ALK PHOS 64, BNP 685, TOTAL PROTEIN 6.8, ALBUMIN 3.2, AMYLASE 28, LIPASE 90, TSH 1.912. AN ABG WAS OBTAINED AND REVEALED: PH 7.450, PC02 46, P02 54, HC03 32, 02 SAT 89, BASE EXCESS 7.0, A-A GRADIENT 117, FI02 32.0. URINALYSIS WAS UNREMARKABLE. COVID, RSV, AND INFLUENZA NEGATIVE. BLOOD AND SPUTUM CULTURES WERE SET UP. A CHEST XRAY WAS OBTAINED AND REVEALED: 1. Findings consistent with mild CHF or volume overload in the appropriate clinical setting (with relatively mild appearance of infiltrates compared with the previous exam); DDX includes (but is not limited to) mild bronchitis and interstitial pneumonia in the appropriate clinical setting. 2. Recommend clinical correlation and appropriate follow-up CXR evaluation to ensure interval clearance as clinically warranted. 3. Consider follow-up noncontrast chest CT for further characterization as clinically warranted. EKG REVEALED: ATRIAL FIBRILLATION WITH RVR. HR 103. IN THE ER, HE WAS GIVEN DECADROM 4MG X 1, ROCEPHIN 1G IM X 1, ZITHROMAX 500MG IV X 1, XOPENEX NEB TX X 1. HE WAS ADMITTED TO THE HOSPITAL INPATIENT STATUS FOR TREATMENT OF BRONCHOPNEUMONIA, CHF, A-FIB. HE WAS STARTED ON LEVAQUIN 750MG IV Q48H, FORTAZ 1G IV BID, DILTIAZEM 30MG PO Q8H, DUONEBS QID, PULMICORT NEBS BID, MUCOMYST IN NEB [place] QID, OTBS ACHS, HUMULIN R SLIDING SCALE, THE POTASSIUM AND MAGNESIUM PROTOCOLS, AND HIS HOME MEDICATIONS WERE RESUMED. WE WILL OBTAIN A CHEST CT WITHOUT CONTRAST. OTHERWISE, WE WILL FOLLOW-UP WITH AM LABS AND CONTINUE TO MONITOR. TIME SPENT ON CLINICAL ASSESSMENT, REVIWING LABS AND IMAGING, DECISION MAKING, AND DOCUMENTATION GREATER THAN 75 MINUTES. - Past Medical History Past Medical History: Hypertension, Dyslipidemia, Diabetes, Renal Disease, Anxiety, Hyperthyroidism, COPD, GERD, Gout, Sleep Apnea, CHF Additional Medical History: BPH, EMPHYSEMA - Past Surgical History Surgical History: AAA Repair, Cholecystectomy - Family History Family Medical History: Diabetes Mellitus, Cancer, [place] - Social History Does patient currently use any type of tobacco product: No Have you used tobacco products in the last 12 months: No Type of Tobacco Use: None Does any household member use tobacco: No Alcohol Use: None Drug Use: None - Medications Home Medications: apixaban [From Eliquis] Allergy (Severe, Verified 04/23/22 20:00) heparin Allergy (Severe, Verified 04/23/22 19:59) warfarin [From Coumadin] Allergy (Severe, Verified 04/23/22 19:59) codeine Allergy (Verified 04/22/22 15:54) latex Allergy (Verified 04/22/22 15:54) TERAMYCIN Allergy (Uncoded 04/22/22 15:54) CONTINUE taking the following medications albuterol sulfate 90 mcg/actuation aerosol inhaler 2 puff inhalation Q4-6H PRN wheezing 04/22/22 [History] azithromycin 500 mg tablet 1 tab PO QDAY 04/22/22 [History] benzonatate 100 mg capsule 1 cap PO Q4H PRN cough 04/22/22 [History] bumetanide 2 mg tablet 1 tab PO QDAY 04/22/22 [History] carvedilol 6.25 mg tablet 1 tab PO BID 04/22/22 [History] cholecalciferol (vitamin D3) 125 mcg (5,000 unit) tablet (Vitamin D3) 5,000 unit PO DAILY 04/22/22 [History] dutasteride 0.5 mg capsule 1 cap PO QDAY 04/22/22 [History] fenofibric acid (choline) 135 mg capsule,delayed release 1 cap PO QDAY 04/22/22 [History] fluticasone fur. 100 mcg-umeclid 62.5 mcg-vilant 25 mcg inhalat.powder (Trelegy Ellipta) 1 ea inhalation DAILY 04/22/22 [History] folic acid-vit B6-vit B12 2.5 mg-25 mg-1 mg tablet (Folbee) 1 tab PO QDAY 04/22/22 [History] furosemide 40 mg tablet 1 tab PO BID 04/22/22 [History] guaifenesin 1,200 mg tablet, extended release 12 hr (Mucinex) 1 tab PO BID 04/22/22 [History] hydralazine 100 mg tablet 50 mg PO BID 04/22/22 [History] ipratropium 0.5 mg-albuterol 3 mg (2.5 mg base)/3 mL nebulization soln 1 vial inhalation TID 04/22/22 [History] levothyroxine 100 mcg tablet 100 mcg PO HS 04/22/22 [History] montelukast 10 mg tablet 1 tab PO QDAY 04/22/22 [History] omeprazole 20 mg capsule,delayed release 2 cap PO BID 04/22/22 [History] polyethylene glycol 3350 17 gram/dose oral powder (Miralax) 17 g PO DAILY 04/22/22 [History] prednisone 20 mg tablet 2 tab PO QAM 04/22/22 [History] sitagliptin phosphate 100 mg tablet (Januvia) 100 mg PO DAILY 04/22/22 [History] tamsulosin 0.4 mg capsule 0.4 mg PO DAILY 04/22/22 [History] vitamin E 400 unit tablet 400 unit PO DAILY 04/22/22 [History] zinc 50 mg capsule 50 mg PO BID 04/22/22 [History] - Review of Systems Constitutional: Weakness Eyes: No Symptoms Reported ENT: No Symptoms Reported Respiratory: Shortness of Breath, SOB with Excertion, Wheezing Cardiovascular: Palpitations Gastrointestinal: No Symptoms Reported Genitourinary: No Symptoms Reported Musculoskeletal: No Symptoms Reported Skin: No Symptoms Reported Neurological: Weakness - Physical Exam Vital Signs: Temperature 97.7 F Pulse Rate [Right Brachial] 88 Pulse Rate 91 Respiratory Rate 30 Blood Pressure [Right Arm] 115/78 Blood Pressure [Left Arm] 110/69 Blood Pressure 127/64 O2 Sat by Pulse Oximetry 92 Oriented: Normal Eyes: Normal Ear: Normal Nose: Normal Throat: Normal Respiratory: Rhonchi Throughout, Wheezes Throughout Cardiovascular: Tachycardia, Irregular : Normal Auscultation: Bowel Sounds: Normal Palpation: Normal Tenderness: Normal Skin: Normal Musculoskeletal: Normal Psychiatric: Normal Mood Description: Calm Affect: Normal Speech Pattern: Clear - Assessment/Plan (1) Bronchopneumonia Status: Acute Plan: ADMIT, SUPPLEMENTAL OXYGEN, CULTURES PENDING, LEVAQUIN 750MG IV Q48H, FORTAZ 1G IV BID, DILTIAZEM 30MG PO Q8H, DUONEBS QID, PULMICORT NEBS BID, MUCOMYST IN NEB [place] QID, OTBS ACHS, HUMULIN R SLIDING SCALE, THE POTASSIUM AND MAGNESIUM PROTOCOLS, AND HIS HOME MEDICATIONS WERE RESUMED. (2) CHF (congestive heart failure) Qualifiers: Heart failure type: unspecified Heart failure chronicity: acute on chronic Qualified Code(s): I50.9 - Heart failure, unspecified Status: Acute (3) A-fib Qualifiers: Atrial fibrillation type: unspecified Qualified Code(s): I48.91 - Unspecified atrial fibrillation Status: Acute (4) CKD (chronic kidney disease) stage 4, GFR 15-29 ml/min Status: Chronic (5) BPH (benign prostatic hyperplasia) Qualifiers: Lower urinary tract symptom presence: unspecified whether lower urinary tract symptoms present Qualified Code(s): N40.0 - Benign prostatic hyperplasia without lower urinary tract symptoms Status: Chronic (6) Diabetes Qualifiers: Diabetes mellitus type: type 2 Diabetes mellitus middle or intermediate school principal insulin use: with middle or intermediate school principal use Diabetes mellitus complication status: with hyperglycemia Qualified Code(s): E11.65 - Type 2 diabetes mellitus with hyperglycemia; Z79.4 - rn long term care (current) use of insulin Status: Chronic (7) Hypertension Qualifiers: Hypertension type: primary hypertension Qualified Code(s): I10 - Essential (primary) hypertension Status: Chronic - Allergies Allergies/Adverse Reactions: Allergies Allergy/AdvReac Type Severity Reaction Status Date / Time apixaban [From Eliquis] Allergy Severe Verified 04/23/22 20:00 heparin Allergy Severe Verified 04/23/22 19:59 warfarin [From Coumadin] Allergy Severe Verified 04/23/22 19:59 codeine Allergy Verified 04/22/22 15:54 latex Allergy Verified 04/22/22 15:54 TERAMYCIN Allergy Uncoded 04/22/22 15:54
[2022-04-24] MEDS: NovoLIN R (or HumuLIN R) SUBCUT PRN ×2 (11:45→21:18)
--- NOTE | 2022-04-24 13:15 | RAD ---
HISTORYCough, shortness of breathSTUDYChest AP [id number]/2023 chest x-ray, 04/23/2022 chest CTFINDINGSThe heart enlarged. Mild congestive heart failure is present in the form of interstitial edema. No alveolar edema, alveolar infiltrates, areas of consolidation, or pleural effusions identified. Bony thorax is unremarkable.IMPRESSIONCardiomegaly with mild congestive heart failureNo acute infiltratesElectronically signed by: RAVEN HOUSTON (Apr 24, 2022 13:13:40)
[2022-04-24] MEDS: LASIX IVP SCH (16:55)
[2022-04-24] MEDS: SYNTHROID 100 mcg TAB PO SCH (21:11)
[2022-04-24] MEDS: SNACK - Diabetic Appropriate PO SCH (21:13)
[2022-04-25] MEDS: TESSALON PERLES PO PRN ×3 (02:04→21:09)
[2022-04-25] MEDS: CARDIZEM TAB 30 MG PLAIN PO SCH ×3 (05:04→21:09)
[2022-04-25 05:07] LABS: BASOPHILS % (AUTO) 0.2 % (0.2-1.0); EOSINOPHILS % (AUTO) 0.1 % (0.9-2.9); HEMATOCRIT 37.2 % (42.0-54.0); HEMOGLOBIN 12.5 g/dL (13.5-18.0); LYMPHOCYTES # (AUTO) 0.9 X10^3/uL (1.3-2.9); LYMPHOCYTES % (AUTO) 7.3 % (21.0-51.0); MEAN CORPUSCULAR HEMOGLOBIN 30.9 pg (27.0-34.0); MEAN CORPUSCULAR HGB CONC 33.5 g/dL (33.0-35.0); MEAN CORPUSCULAR VOLUME 92.1 fL (80.0-100.0); MEAN PLATELET VOLUME 7.1 fL (7.4-11.0); MONOCYTES # (AUTO) 0.7 x10^3/uL (0.3-0.8); MONOCYTES % (AUTO) 5.6 % (0.0-13.0); NEUTROPHILS # (AUTO) 10.8 x10^3/uL (2.2-4.8); NEUTROPHILS % (AUTO) 86.8 % (42.0-75.0); RED BLOOD COUNT 4.04 X10^6/uL (4.7-6.0); RED CELL DISTRIBUTION WIDTH 15.1 % (11.6-16.5); WHITE BLOOD COUNT 12.4 X10^3/uL (3.6-10.0)
[2022-04-25 05:20] LABS: CARBON DIOXIDE 35.7 mmol/L (21-32); COR CA(FOR HYPOALB) 8.8 mg/dL (8.5-10.1); CREATININE 2.25 mg/dL (0.70-1.30); TOTAL PROTEIN 6.3 g/dL (6.4-8.2)
[2022-04-25] MEDS: FORTAZ or TAZICEF VIAL INJ 1 G in NS 100 ML IV 100 ML IV SCH (08:18)
[2022-04-25] MEDS: PULMICORT NEB TX 0.5 MG NEB SCH ×2 (08:40→21:00)
[2022-04-25] MEDS: DUONEB 0.5 MG/3 MG (3 mL) NEB SCH ×4 (08:40→21:00)
[2022-04-25] MEDS: MUCOMYST 20% 200 MG/ML NEB SCH ×4 (08:40→21:00)
--- NOTE | 2022-04-25 09:04 | RAD ---
HISTORYPneumonia, shortness of breathSTUDYChest AP [id number]/17/2023 chest x-ray, 04/23/2022 chest CTFINDINGSThe heart remains enlarged. The ezequiel are normal. Previously noted interstitial edema has improved. Mild residual interstitial lung changes remain more prominent in the lower lobes. Hyperinflation remains present. No alveolar infiltrates, areas of consolidation, or pleural effusions identified. Bony thorax is unremarkable.IMPRESSIONCardiomegaly with improved congestive heart failureElectronically signed by: RAVEN HOUSTON (Apr 25, 2022 09:03:15)
[2022-04-25] MEDS: FOLTX PO SCH (09:17)
[2022-04-25] MEDS: COREG TAB 6.25 MG PO SCH ×2 (09:17→21:09)
[2022-04-25] MEDS: AVODART PO SCH (09:17)
[2022-04-25] MEDS: PriLOSEC PO SCH ×2 (09:19→21:10)
[2022-04-25] MEDS: PREDNISONE TAB 20 MG PO SCH (09:19)
[2022-04-25] MEDS: LASIX IVP SCH ×2 (09:22→18:16)
[2022-04-25] MEDS: APRESOLINE TAB 25 MG PO SCH ×2 (09:24→21:09)
[2022-04-25] MEDS: ZINC SULFATE PO SCH ×2 (09:25→21:09)
[2022-04-25] MEDS: FLOMAX PO SCH (09:25)
[2022-04-25] MEDS: TRICOR TAB 48 MG PO SCH (09:27)
[2022-04-25] MEDS: SINGULAIR TAB 10 MG PO SCH (09:28)
[2022-04-25] MEDS: DIFLUCAN 100 MG IV (MIX by PHARMACY)* 100 MG/50 ML BAG IV SCH (09:29)
[2022-04-25] MEDS: MUCINEX EXPECTORANT PO SCH ×2 (09:31→21:11)
[2022-04-25] MEDS: COLACE CAP 100 MG PO SCH ×2 (09:31→21:12)
[2022-04-25] MEDS: VITAMIN D3 125 mcg (5,000 UNITS) PO SCH (09:32)
[2022-04-25] MEDS: MIRALAX POWDER (255 GRAMS BTL) PO SCH (09:45)
[2022-04-25] MEDS: JANUVIA PO SCH (12:50)
[2022-04-25] MEDS: NYSTATIN SUSP MT SCH ×4 (13:56→21:09)
[2022-04-25] MEDS: ROBITUSSIN DM PO SCH ×4 (13:57→21:10)
[2022-04-25] MEDS: MAGIC MOUTHWASH (Orig. Formula) MT SCH ×4 (13:57→21:15)
[2022-04-25] MEDS: ZOSYN VIAL 3.375 GRAMS 3.375 G in NS 100 ML IV 100 ML IV SCH ×2 (14:19→21:10)
[2022-04-25] MEDS: LEVAQUIN PREMIX IV 750 MG 750 MG/150 ML BAG IV SCH (17:30)
[2022-04-25] MEDS: NovoLIN R (or HumuLIN R) SUBCUT PRN ×2 (18:26→21:11)
[2022-04-25] MEDS: SYNTHROID 100 mcg TAB PO SCH (21:08)
[2022-04-25] MEDS: SNACK - Diabetic Appropriate PO SCH (21:12)
[2022-04-26 05:01] LABS: BASOPHILS # (AUTO) 0.1 X10^3/uL (0.0-0.1); BASOPHILS % (AUTO) 0.8 % (0.2-1.0); EOSINOPHILS % (AUTO) 0.2 % (0.9-2.9); HEMATOCRIT 38.9 % (42.0-54.0); HEMOGLOBIN 12.9 g/dL (13.5-18.0); LYMPHOCYTES # (AUTO) 0.5 X10^3/uL (1.3-2.9); LYMPHOCYTES % (AUTO) 3.4 % (21.0-51.0); MEAN CORPUSCULAR HEMOGLOBIN 30.7 pg (27.0-34.0); MEAN CORPUSCULAR HGB CONC 33.2 g/dL (33.0-35.0); MEAN CORPUSCULAR VOLUME 92.6 fL (80.0-100.0); MEAN PLATELET VOLUME 7.1 fL (7.4-11.0); MONOCYTES # (AUTO) 0.6 x10^3/uL (0.3-0.8); MONOCYTES % (AUTO) 3.8 % (0.0-13.0); NEUTROPHILS # (AUTO) 14.1 x10^3/uL (2.2-4.8); NEUTROPHILS % (AUTO) 91.8 % (42.0-75.0); RED BLOOD COUNT 4.21 X10^6/uL (4.7-6.0); RED CELL DISTRIBUTION WIDTH 15.5 % (11.6-16.5); WHITE BLOOD COUNT 15.4 X10^3/uL (3.6-10.0)
[2022-04-26] MEDS: ZOSYN VIAL 3.375 GRAMS 3.375 G in NS 100 ML IV 100 ML IV SCH ×3 (05:04→21:02)
[2022-04-26] MEDS: CARDIZEM TAB 30 MG PLAIN PO SCH ×3 (05:04→21:30)
[2022-04-26 05:17] LABS: CALCIUM 8.2 mg/dL (8.5-10.1); CARBON DIOXIDE 36.5 mmol/L (21-32); CREATININE 2.23 mg/dL (0.70-1.30); TOTAL PROTEIN 6.5 g/dL (6.4-8.2)
[2022-04-26 05:27] LABS: BAND NEUTROPHILS % 3 % (0-10); PLATELET MORPHOLOGY COMMENT NORMAL (NORMAL)
[2022-04-26] MEDS: DUONEB 0.5 MG/3 MG (3 mL) NEB SCH ×4 (08:30→20:10)
[2022-04-26] MEDS: PULMICORT NEB TX 0.5 MG NEB SCH ×2 (08:30→20:10)
[2022-04-26] MEDS: MUCOMYST 20% 200 MG/ML NEB SCH ×4 (08:30→20:10)
[2022-04-26] MEDS: DIFLUCAN 100 MG IV (MIX by PHARMACY)* 100 MG/50 ML BAG IV SCH (08:41)
[2022-04-26] MEDS: LASIX IVP SCH ×2 (08:42→16:11)
[2022-04-26] MEDS: PREDNISONE TAB 20 MG PO SCH (08:43)
[2022-04-26] MEDS: FLOMAX PO SCH (08:43)
[2022-04-26] MEDS: COLACE CAP 100 MG PO SCH ×2 (08:43→20:56)
[2022-04-26] MEDS: NYSTATIN SUSP MT SCH ×4 (08:43→20:54)
[2022-04-26] MEDS: VITAMIN D3 125 mcg (5,000 UNITS) PO SCH (08:44)
[2022-04-26] MEDS: AVODART PO SCH (08:44)
[2022-04-26] MEDS: SINGULAIR TAB 10 MG PO SCH (08:44)
[2022-04-26] MEDS: ZINC SULFATE PO SCH ×2 (08:44→20:55)
[2022-04-26] MEDS: COREG TAB 6.25 MG PO SCH ×2 (08:44→20:56)
[2022-04-26] MEDS: TRICOR TAB 48 MG PO SCH (08:44)
[2022-04-26] MEDS: PriLOSEC PO SCH ×2 (08:44→20:56)
[2022-04-26] MEDS: APRESOLINE TAB 25 MG PO SCH ×2 (08:44→20:56)
[2022-04-26] MEDS: ROBITUSSIN DM PO SCH (08:45)
[2022-04-26] MEDS: MAGIC MOUTHWASH (Orig. Formula) MT SCH ×4 (08:45→20:57)
[2022-04-26] MEDS: MIRALAX POWDER (255 GRAMS BTL) PO SCH (08:45)
[2022-04-26] MEDS: MUCINEX EXPECTORANT PO SCH ×2 (08:46→20:57)
[2022-04-26] MEDS: FOLTX PO SCH (08:46)
--- NOTE | 2022-04-26 09:00 | RAD ---
HISTORYShortness of breathSTUDYChest AP [id number]/18/2023FINDINGSThe heart remains enlarged. No definite congestive heart failure identified on today's examination. No acute alveolar infiltrates or areas of consolidation identified. No significant pleural effusions identified. Bony thorax is unremarkable.IMPRESSIONCardiomegaly without congestive heart failureNo definite acute infiltratesElectronically signed by: RAVEN HOUSTON (Apr 26, 2022 08:59:05)
[2022-04-26] MEDS ORDERED: ROBITUSSIN CF SYRUP PO SCH (10:09)
--- NOTE | 2022-04-26 10:31 | PCM.PROG ---
Progress Note - Progress Note for Day of Date of Exam: 04/24/22 - Subjective Subjective: IS CURRENTLY INPATIENT STATUS FOR TREATMENT OF PNEUMONIA, CHF, AND ATRIAL FIBRILLATION. HE HAS A PMH OF ANXIETY, CHF, COPD, DM II, NEW DX OF A-FIB, DYSLIPIDEMIA, GERD, GOUT, HTN, HYPERTHYROIDISM, RENAL DISEASE, SLEEP APNEA, AAA REPAIR, AND CHOLECYSTECTOMY. TODAY, HE IS ALERT AND ORIENTED, LYING IN BED ON MORNING ROUNDS. HE CONTINUES WITH COMPLAINTS OF COUGH, SORE THROAT, SHORNTESS OF BREATH, NASAL DRAINAGE, AND WEAKNESS. COUGH HAS BEEN PRODUCTIVE OF THIN, FROTHY SPUTUM. HE DENIES SIGNIFICANT IMPROVEMENT IN SYMPTOMS SINCE ADMISSION. ON EXAMINATION, HEART IS REGULAR IN RATE AND RHYTHM. BILATERAL LUNGS ARE NOTED WITH RHONCHI THROUGHOUT. ABDOMEN IS ROUND, SOFT, AND NON-TENDER WITH NORMAL BOWEL SOUNDS NOTED IN ALL QUADRANTS. TRACE LOWER EXTREMITY EDEMA NOTED. HIS VITALS THIS MORNING WERE: 97.7-98-29-92%-96/55. HE IS CURRENTLY UTILIZING NASAL CANNULA AT 3 LITERS/MINUTE. LABS WERE OBTAINED. WBC 13.6, RBC 4.01, HGB 12.4, HCT 36.7, PLT COUNT 193, SODIUM 138, POTASSIUM 3.7, CHLORIDE 99, CARBON DIOXIDE 32.7, BUN 47, CREATININE 2.19, GLUCOSE 151, CALCIUM 7.8, TOTAL BILI 0.60, AST 11, ALT 22, ALK PHOS 48, BNP 455, TOTAL PROTEIN 6.1, ALBUMIN 2.8, MAGNESIUM 2.0. BLOOD AND SPUTUM CULTURES ARE PENDING. PRELIMINARY SPUTUM CULTURE IS POSITIVE FOR YEAST AND MODERATE GRAM POSITIVE DIPLOCOCCI. CHEST XRAY WAS OBTAINED THIS MORNING AND REVEALED: The heart enlarged. Mild congestive heart failure is present in the form of interstitial edema. No alveolar edema, alveolar infiltrates, areas of consolidation, or pleural effusions identified. Bony thorax is unremarkable. A CHEST CT WAS OBTAINED YESTERDAY AND REVEALED: 1. New cardiomegaly with findings suggesting CHF 2. Dilated pulmonary artery suggesting pulmonary arterial hypertension 3. Emphysema. HE IS CURRENTLY RECEIVING LEVAQUIN 750MG IV Q48H, FORTAZ 1G IV BID, DILTIAZEM 30MG PO Q8H, DUONEBS QID, PULMICORT NEBS BID, MUCOMYST IN NEB TX QID, OTBS ACHS, HUMULIN R SLIDING SCALE, THE POTASSIUM AND MAGNESIUM PROTOCOLS, AND HIS HOME MEDICATIONS WERE RESUMED. TODAY, WE WILL ADD DIFLUCAN 100MG IV DAILY AND CHANGE HIS LASIX TO 20MG IV BID. OTHERWISE, WE WILL FOLLOW-UP WITH AM LABS AND CHEST XRAY AND CONTINUE TO MONITOR. TIME SPENT ON CLINICAL ASSESSMENT, REVIWING LABS AND IMAGING, DECISION MAKING, AND DOCUMENTATION GREATER THAN 45 MINUTES. - Past Medical Family Social History Past Med/Fam/Surg Hx: No changes since H&P Allergies: Allergies apixaban [From Eliquis] Allergy (Severe, Verified 04/23/22 20:00) excessive nasal and rectal bleeding heparin Allergy (Severe, Verified 04/23/22 19:59) excessive nasal and rectal bleeding warfarin [From Coumadin] Allergy (Severe, Verified 04/23/22 19:59) excessive nasal and rectal bleeding codeine Allergy (Verified 04/22/22 15:54) latex Allergy (Verified 04/22/22 15:54) TERAMYCIN Allergy (Uncoded 04/22/22 15:54) - Review of Systems ROS: No change since H&P - Vital Signs and I&O's Vital Signs: Temperature 98.2 F Pulse Rate [Right Brachial] 88 Pulse Rate 82 Respiratory Rate 20 Blood Pressure [Right Arm] 115/78 Blood Pressure [Left Arm] 110/69 Blood Pressure 129/76 O2 Sat by Pulse Oximetry 92 Intake and Output: Intake & Output 04/23/22 04/24/22 04/25/22 04/26/22 11:59 11:59 11:59 11:59 Intake Total 1620 / 1620 1625 / 1625 1958 / 1958 2847 / 2847 Output Total 1700 / 1700 3150 / 3150 3400 / 3400 2820 / 2820 Balance -80 / -80 -1525 / -1525 -1442 / -1442 - Physical Exam Oriented: Normal Eyes: Normal Ear: Normal Nose: Normal Throat: Normal Respiratory: Rhonchi Cardiovascular: Irregular : Normal Auscultation: Bowel Sounds: Normal Palpation: Normal Tenderness: Normal Skin: Normal Musculoskeletal: Normal Psychiatric: Normal Mood Description: Calm Affect: Normal Speech Pattern: Clear, Appropriate - Laboratory and Diagnostics Result Diagrams: 04/26/22 04:20 04/26/22 04:20 Labs: 04/22/22 16:35 Sputum - Expectorated Sputum Sputum Culture - Preliminary 04/22/22 16:35 Sputum - Expectorated Sputum - Final 04/22/22 16:35 Blood Blood Culture - Preliminary 04/22/22 16:41 Blood Blood Culture - Preliminary Laboratory WBC 15.4 X10^3/uL (3.6-10.0) H 04/26/22 04:20 RBC 4.21 X10^6/uL (4.7-6.0) L 04/26/22 04:20 Hgb 12.9 g/dL (13.5-18.0) L 04/26/22 04:20 Hct 38.9 % (42.0-54.0) L 04/26/22 04:20 MCV 92.6 fL (80.0-100.0) 04/26/22 04:20 MCH 30.7 pg (27.0-34.0) 04/26/22 04:20 MCHC 33.2 g/dL (33.0-35.0) 04/26/22 04:20 RDW 15.5 % (11.6-16.5) 04/26/22 04:20 Plt Count 208 X10^3/uL (150.0-450.0) 04/26/22 04:20 Plt Count Comment Adequate (ADEQUATE) 04/26/22 04:20 MPV 7.1 fL (7.4-11.0) L 04/26/22 04:20 Neut % (Auto) 91.8 % (42.0-75.0) H 04/26/22 04:20 Lymph % (Auto) 3.4 % (21.0-51.0) L 04/26/22 04:20 [place] % (Auto) 3.8 % (0.0-13.0) 04/26/22 04:20 Eos % (Auto) 0.2 % (0.9-2.9) L 04/26/22 04:20 Baso % (Auto) 0.8 % (0.2-1.0) 04/26/22 04:20 Neut # (Auto) 14.1 x10^3/uL (2.2-4.8) H 04/26/22 04:20 Lymph # (Auto) 0.5 X10^3/uL (1.3-2.9) L 04/26/22 04:20 [place] # (Auto) 0.6 x10^3/uL (0.3-0.8) 04/26/22 04:20 Eos # (Auto) 0.0 x10^3/uL (0.0-0.2) 04/26/22 04:20 Baso # (Auto) 0.1 X10^3/uL (0.0-0.1) 04/26/22 04:20 Absolute Nucleated RBC 0.0 /100WBC 04/26/22 04:20 Total Counted 100 04/26/22 04:20 Neutrophils % (Manual) 89 % (39-76) H 04/26/22 04:20 Band Neutrophils % 3 % (0-10) 04/26/22 04:20 Lymphocytes % (Manual) 5 % (13-43) L 04/26/22 04:20 Monocytes % (Manual) 3 % (4-9) L 04/26/22 04:20 Plt Morphology Comment Normal (NORMAL) 04/26/22 04:20 RBC Morphology Normal (NORMAL) 04/26/22 04:20 PT 15.3 SECONDS (11.8-14.3) 04/22/22 15:33 INR Target Range - 04/22/22 15:33 INR 1.25 (0.8-1.3) 04/22/22 15:33 APTT 27.4 SECONDS (22.9-36.5) 04/22/22 15:33 PTT Comment - 04/22/22 15:33 Sample Site Rb 04/22/22 16:18 ABG pH 7.450 (7.35-7.45) 04/22/22 16:18 ABG pCO2 46.0 mmHg (35.0-45.0) H 04/22/22 16:18 ABG pO2 54.0 mmHg (80.0-100.0) L 04/22/22 16:18 ABG HCO3 32.0 mmol/L (22-26) H* 04/22/22 16:18 ABG O2 Saturation 89.0 % (90-100) L 04/22/22 16:18 ABG Base Excess 7.0 mmol/L (-2.0-2.0) H 04/22/22 16:18 Sudeep Test N/a 04/22/22 16:18 A-a Gradient 117.0 mmHg 04/22/22 16:18 FiO2 32.0 04/22/22 16:18 Blood Gas Comments Pt thad well elj 04/22/22 16:18 Sodium 139 mmol/L (136-145) 04/26/22 04:20 Corrected Sodium 140 mmol/L (136-145) 04/26/22 04:20 Potassium 4.2 mmol/L (3.5-5.1) 04/26/22 04:20 Chloride 99 mmol/L (98-107) 04/26/22 04:20 Carbon Dioxide 36.5 mmol/L (21-32) H 04/26/22 04:20 BUN 49 mg/dL (7-18) H 04/26/22 04:20 Creatinine 2.23 mg/dL (0.70-1.30) H 04/26/22 04:20 Est GFR (MDRD) Af Amer 37 (>60) L 04/26/22 04:20 Est GFR (MDRD) Non-Af 31 (>60) L 04/26/22 04:20 Glucose 140 mg/dL (65-99) H 04/26/22 04:20 POC Glucose (mg/dL) 347 mg/dL (65-99) H 04/25/22 19:49 Lactic Acid 0.8 mmol/L (0.4-2.0) 04/23/22 10:27 Uric Acid 9.1 mg/dL (3.5-7.2) H 04/25/22 04:19 Calcium 8.2 mg/dL (8.5-10.1) L 04/26/22 04:20 Corrected Calcium 9.0 mg/dL (8.5-10.1) 04/26/22 04:20 Phosphorus 3.7 mg/dL (2.6-4.7) 04/22/22 15:33 Magnesium 2.0 mg/dL (2.0-2.9) 04/24/22 04:44 Total Bilirubin 0.60 mg/dL (0.2-1.0) 04/26/22 04:20 AST 9 Units/L (15-37) L 04/26/22 04:20 ALT 20 Units/L (12-78) 04/26/22 04:20 Alkaline Phosphatase 48 Units/L (46-116) 04/26/22 04:20 Creatine Kinase 35 Units/L (39-308) L 04/23/22 04:00 Troponin I High Sens 14.4 ng/L (4.0-60.0) 04/23/22 04:00 B-Natriuretic Peptide 526 pg/mL (0-79) H* 04/26/22 04:20 Total Protein 6.5 g/dL (6.4-8.2) 04/26/22 04:20 Albumin 3.0 g/dL (3.4-5.0) L 04/26/22 04:20 Globulin 3.5 g/dL (2.5-4.5) 04/26/22 04:20 Albumin/Globulin Ratio 0.9 Ratio (1.1-2.1) L 04/26/22 04:20 Amylase 28 Units/L (25-115) 04/22/22 15:33 Lipase 90 Units/L (73-393) 04/22/22 15:33 TSH 3rd Generation 1.912 uIU/mL (0.358-3.74) 04/22/22 15:55 Cortisol 7.8 ug/dL 04/22/22 15:33 Specimen Type Clean catch urine 04/22/22 20:57 Urine Color Pale yellow (YELLOW) 04/22/22 20:57 Urine Appearance Clear (CLEAR) 04/22/22 20:57 Urine pH 6.0 (5.0 - 8.0) 04/22/22 20:57 Ur Specific [place] 1.020 (1.000-1.030) 04/22/22 20:57 Urine Protein Negative (NEGATIVE) 04/22/22 20:57 Urine Glucose (UA) 3+ (NEGATIVE) 04/22/22 20:57 Urine Ketones Negative (NEGATIVE) 04/22/22 20:57 Urine Blood Negative (NEGATIVE) 04/22/22 20:57 Urine Nitrite Negative (NEGATIVE) 04/22/22 20:57 Urine Bilirubin Negative (NEGATIVE) 04/22/22 20:57 Urine Urobilinogen Normal (NORMAL) 04/22/22 20:57 Ur Leukocyte Esterase Negative (NEGATIVE) 04/22/22 20:57 SARS-CoV-2 (PCR) Negative (NEGATIVE) 04/22/22 17:50 Influenza Type A (PCR) Negative (NEGATIVE) 04/22/22 17:50 Influenza Type B (PCR) Negative (NEGATIVE) 04/22/22 17:50 RSV (PCR) Negative (NEGATIVE) 04/22/22 17:50 - Plan (1) Bronchopneumonia Status: Acute Plan: SUPPLEMENTAL OXYGEN, CULTURES PENDING, LEVAQUIN 750MG IV Q48H, FORTAZ 1G IV BID, DILTIAZEM 30MG PO Q8H, DIFLUCAN 100MG IV DAILY, LASIX 20MG IV BID, DUONEBS QID, PULMICORT NEBS BID, MUCOMYST IN NEB TX QID, OTBS ACHS, HUMULIN R SLIDING SCALE, THE POTASSIUM AND MAGNESIUM PROTOCOLS, AND HIS HOME MEDICATIONS WERE RESUMED. (2) CHF (congestive heart failure) Status: Acute Qualifiers: Heart failure type: unspecified Heart failure chronicity: acute on chronic Qualified Code(s): I50.9 - Heart failure, unspecified (3) A-fib Status: Acute Qualifiers: Atrial fibrillation type: unspecified Qualified Code(s): I48.91 - Unspecified atrial fibrillation (4) CKD (chronic kidney disease) stage 4, GFR 15-29 ml/min Status: Chronic (5) BPH (benign prostatic hyperplasia) Status: Chronic Qualifiers: Lower urinary tract symptom presence: unspecified whether lower urinary tract symptoms present Qualified Code(s): N40.0 - Benign prostatic hyperplasia without lower urinary tract symptoms (6) Diabetes Status: Chronic Qualifiers: Diabetes mellitus type: type 2 Diabetes mellitus senior living insulin use: with termite renewal inspector use Diabetes mellitus complication status: with hyperglycemia Qualified Code(s): E11.65 - Type 2 diabetes mellitus with hyperglycemia; Z79.4 - [facility] (current) use of insulin (7) Hypertension Status: Chronic Qualifiers: Hypertension type: primary hypertension Qualified Code(s): I10 - Essential (primary) hypertension
--- NOTE | 2022-04-26 10:54 | PCM.PROG ---
Progress Note - Progress Note for Day of Date of Exam: 04/25/22 - Subjective Subjective: IS CURRENTLY INPATIENT STATUS FOR TREATMENT OF PNEUMONIA, CHF, AND ATRIAL FIBRILLATION. HE HAS A PMH OF ANXIETY, CHF, COPD, DM II, NEW DX OF A-FIB, DYSLIPIDEMIA, GERD, GOUT, HTN, HYPERTHYROIDISM, RENAL DISEASE, SLEEP APNEA, AAA REPAIR, AND CHOLECYSTECTOMY. TODAY, HE IS ALERT AND ORIENTED, LYING IN BED ON MORNING ROUNDS. HE CONTINUES WITH COMPLAINTS OF COUGH, SORE THROAT, SHORNTESS OF BREATH, NASAL DRAINAGE, AND WEAKNESS. COUGH HAS BEEN PRODUCTIVE OF THIN, FROTHY SPUTUM. HE REPORTS ONLY SLIGHT IMPROVEMENT IN SYMPTOMS SINCE ADMISSION. ON EXAMINATION, HEART IS REGULAR IN RATE AND RHYTHM. BILATERAL LUNGS ARE NOTED WITH RHONCHI THROUGHOUT. ABDOMEN IS ROUND, SOFT, AND NON-TENDER WITH NORMAL BOWEL SOUNDS NOTED IN ALL QUADRANTS. TRACE LOWER EXTREMITY EDEMA NOTED. HIS VITALS THIS MORNING WERE: 97.9-93-25-95%-144/86. HE IS CURRENTLY UTILIZING NASAL CANNULA AT 3 LITERS/MINUTE. LABS WERE OBTAINED. WBC 12.4, RBC 4.04, HGB 12.5, HCT 37.2, PLT COUNT 205, SODIUM 138, POTASSIUM 3.9, CHLORIDE 98, CARBON DIOXIDE 35.7, BUN 48, CREATININE 2.25, GLUCOSE 152, URIC ACID 9.1, CALCIUM 8.0, AST 10, ALT 23, ALK PHOS 51, BNP 467, TOTAL PROTEIN 6.3, ALBUMIN 3.0. BLOOD AND SPUTUM CULTURES ARE PENDING. PRELIMINARY SPUTUM CULTURE IS POSITIVE FOR YEAST AND MODERATE GRAM POSITIVE DIPLOCOCCI. CHEST XRAY WAS OBTAINED THIS MORNING AND REVEALED: The heart remains enlarged. The ezequiel are normal. Previously noted interstitial edema has improved. Mild residual interstitial lung changes remain more prominent in the lower lobes. Hyperinflation remains present. No alveolar infiltrates, areas of consolidation, or pleural effusions identified. Bony thorax is unremarkable. HE IS CURRENTLY RECEIVING LEVAQUIN 750MG IV Q48H, FORTAZ 1G IV BID, DIFLUCAN 100MG IV DAILY, LASIX 20MG IV BID, DILTIAZEM 30MG PO Q8H, DUONEBS QID, PULMICORT NEBS BID, MUCOMYST IN NEB TX QID, OTBS ACHS, HUMULIN R SLIDING SCALE, THE POTASSIUM AND MAGNESIUM PROTOCOLS, AND HIS HOME MEDICATIONS WERE RESUMED. OTHERWISE, WE WILL FOLLOW-UP WITH AM LABS AND CHEST XRAY AND CONTINUE TO MONITOR. TIME SPENT ON CLINICAL ASSESSMENT, REVIWING LABS AND IMAGING, DECISION MAKING, AND DOCUMENTATION GREATER THAN 45 MINUTES. - Past Medical Family Social History Past Med/Fam/Surg Hx: No changes since H&P Allergies: Allergies apixaban [From Eliquis] Allergy (Severe, Verified 04/23/22 20:00) excessive nasal and rectal bleeding heparin Allergy (Severe, Verified 04/23/22 19:59) excessive nasal and rectal bleeding warfarin [From Coumadin] Allergy (Severe, Verified 04/23/22 19:59) excessive nasal and rectal bleeding codeine Allergy (Verified 04/22/22 15:54) latex Allergy (Verified 04/22/22 15:54) TERAMYCIN Allergy (Uncoded 04/22/22 15:54) - Review of Systems ROS: No change since H&P - Vital Signs and I&O's Vital Signs: Temperature 98.2 F Pulse Rate [Right Brachial] 88 Pulse Rate 82 Respiratory Rate 20 Blood Pressure [Right Arm] 115/78 Blood Pressure [Left Arm] 110/69 Blood Pressure 129/76 O2 Sat by Pulse Oximetry 92 Intake and Output: Intake & Output 04/23/22 04/24/22 04/25/22 04/26/22 11:59 11:59 11:59 11:59 Intake Total 1620 / 1620 1625 / 1625 1958 / 1958 2847 / 2847 Output Total 1700 / 1700 3150 / 3150 3400 / 3400 2820 / 2820 Balance -80 / -80 -1525 / -1525 -1442 / -1442 - Physical Exam Oriented: Normal Eyes: Normal Ear: Normal Nose: Normal Throat: Normal Respiratory: Rhonchi Cardiovascular: Irregular : Normal Auscultation: Bowel Sounds: Normal Palpation: Normal Tenderness: Normal Skin: Normal Musculoskeletal: Normal Psychiatric: Normal Mood Description: Calm Affect: Normal Speech Pattern: Clear, Appropriate - Laboratory and Diagnostics Result Diagrams: 04/26/22 04:20 04/26/22 04:20 Labs: 04/22/22 16:35 Sputum - Expectorated Sputum Sputum Culture - Preliminary 04/22/22 16:35 Sputum - Expectorated Sputum - Final 04/22/22 16:35 Blood Blood Culture - Preliminary 04/22/22 16:41 Blood Blood Culture - Preliminary Laboratory WBC 15.4 X10^3/uL (3.6-10.0) H 04/26/22 04:20 RBC 4.21 X10^6/uL (4.7-6.0) L 04/26/22 04:20 Hgb 12.9 g/dL (13.5-18.0) L 04/26/22 04:20 Hct 38.9 % (42.0-54.0) L 04/26/22 04:20 MCV 92.6 fL (80.0-100.0) 04/26/22 04:20 MCH 30.7 pg (27.0-34.0) 04/26/22 04:20 MCHC 33.2 g/dL (33.0-35.0) 04/26/22 04:20 RDW 15.5 % (11.6-16.5) 04/26/22 04:20 Plt Count 208 X10^3/uL (150.0-450.0) 04/26/22 04:20 Plt Count Comment Adequate (ADEQUATE) 04/26/22 04:20 MPV 7.1 fL (7.4-11.0) L 04/26/22 04:20 Neut % (Auto) 91.8 % (42.0-75.0) H 04/26/22 04:20 Lymph % (Auto) 3.4 % (21.0-51.0) L 04/26/22 04:20 [place] % (Auto) 3.8 % (0.0-13.0) 04/26/22 04:20 Eos % (Auto) 0.2 % (0.9-2.9) L 04/26/22 04:20 Baso % (Auto) 0.8 % (0.2-1.0) 04/26/22 04:20 Neut # (Auto) 14.1 x10^3/uL (2.2-4.8) H 04/26/22 04:20 Lymph # (Auto) 0.5 X10^3/uL (1.3-2.9) L 04/26/22 04:20 [place] # (Auto) 0.6 x10^3/uL (0.3-0.8) 04/26/22 04:20 Eos # (Auto) 0.0 x10^3/uL (0.0-0.2) 04/26/22 04:20 Baso # (Auto) 0.1 X10^3/uL (0.0-0.1) 04/26/22 04:20 Absolute Nucleated RBC 0.0 /100WBC 04/26/22 04:20 Total Counted 100 04/26/22 04:20 Neutrophils % (Manual) 89 % (39-76) H 04/26/22 04:20 Band Neutrophils % 3 % (0-10) 04/26/22 04:20 Lymphocytes % (Manual) 5 % (13-43) L 04/26/22 04:20 Monocytes % (Manual) 3 % (4-9) L 04/26/22 04:20 Plt Morphology Comment Normal (NORMAL) 04/26/22 04:20 RBC Morphology Normal (NORMAL) 04/26/22 04:20 PT 15.3 SECONDS (11.8-14.3) 04/22/22 15:33 INR Target Range - 04/22/22 15:33 INR 1.25 (0.8-1.3) 04/22/22 15:33 APTT 27.4 SECONDS (22.9-36.5) 04/22/22 15:33 PTT Comment - 04/22/22 15:33 Sample Site Rb 04/22/22 16:18 ABG pH 7.450 (7.35-7.45) 04/22/22 16:18 ABG pCO2 46.0 mmHg (35.0-45.0) H 04/22/22 16:18 ABG pO2 54.0 mmHg (80.0-100.0) L 04/22/22 16:18 ABG HCO3 32.0 mmol/L (22-26) H* 04/22/22 16:18 ABG O2 Saturation 89.0 % (90-100) L 04/22/22 16:18 ABG Base Excess 7.0 mmol/L (-2.0-2.0) H 04/22/22 16:18 Sudeep Test N/a 04/22/22 16:18 A-a Gradient 117.0 mmHg 04/22/22 16:18 FiO2 32.0 04/22/22 16:18 Blood Gas Comments Pt thad well elj 04/22/22 16:18 Sodium 139 mmol/L (136-145) 04/26/22 04:20 Corrected Sodium 140 mmol/L (136-145) 04/26/22 04:20 Potassium 4.2 mmol/L (3.5-5.1) 04/26/22 04:20 Chloride 99 mmol/L (98-107) 04/26/22 04:20 Carbon Dioxide 36.5 mmol/L (21-32) H 04/26/22 04:20 BUN 49 mg/dL (7-18) H 04/26/22 04:20 Creatinine 2.23 mg/dL (0.70-1.30) H 04/26/22 04:20 Est GFR (MDRD) Af Amer 37 (>60) L 04/26/22 04:20 Est GFR (MDRD) Non-Af 31 (>60) L 04/26/22 04:20 Glucose 140 mg/dL (65-99) H 04/26/22 04:20 POC Glucose (mg/dL) 347 mg/dL (65-99) H 04/25/22 19:49 Lactic Acid 0.8 mmol/L (0.4-2.0) 04/23/22 10:27 Uric Acid 9.1 mg/dL (3.5-7.2) H 04/25/22 04:19 Calcium 8.2 mg/dL (8.5-10.1) L 04/26/22 04:20 Corrected Calcium 9.0 mg/dL (8.5-10.1) 04/26/22 04:20 Phosphorus 3.7 mg/dL (2.6-4.7) 04/22/22 15:33 Magnesium 2.0 mg/dL (2.0-2.9) 04/24/22 04:44 Total Bilirubin 0.60 mg/dL (0.2-1.0) 04/26/22 04:20 AST 9 Units/L (15-37) L 04/26/22 04:20 ALT 20 Units/L (12-78) 04/26/22 04:20 Alkaline Phosphatase 48 Units/L (46-116) 04/26/22 04:20 Creatine Kinase 35 Units/L (39-308) L 04/23/22 04:00 Troponin I High Sens 14.4 ng/L (4.0-60.0) 04/23/22 04:00 B-Natriuretic Peptide 526 pg/mL (0-79) H* 04/26/22 04:20 Total Protein 6.5 g/dL (6.4-8.2) 04/26/22 04:20 Albumin 3.0 g/dL (3.4-5.0) L 04/26/22 04:20 Globulin 3.5 g/dL (2.5-4.5) 04/26/22 04:20 Albumin/Globulin Ratio 0.9 Ratio (1.1-2.1) L 04/26/22 04:20 Amylase 28 Units/L (25-115) 04/22/22 15:33 Lipase 90 Units/L (73-393) 04/22/22 15:33 TSH 3rd Generation 1.912 uIU/mL (0.358-3.74) 04/22/22 15:55 Cortisol 7.8 ug/dL 04/22/22 15:33 Specimen Type Clean catch urine 04/22/22 20:57 Urine Color Pale yellow (YELLOW) 04/22/22 20:57 Urine Appearance Clear (CLEAR) 04/22/22 20:57 Urine pH 6.0 (5.0 - 8.0) 04/22/22 20:57 Ur Specific [place] 1.020 (1.000-1.030) 04/22/22 20:57 Urine Protein Negative (NEGATIVE) 04/22/22 20:57 Urine Glucose (UA) 3+ (NEGATIVE) 04/22/22 20:57 Urine Ketones Negative (NEGATIVE) 04/22/22 20:57 Urine Blood Negative (NEGATIVE) 04/22/22 20:57 Urine Nitrite Negative (NEGATIVE) 04/22/22 20:57 Urine Bilirubin Negative (NEGATIVE) 04/22/22 20:57 Urine Urobilinogen Normal (NORMAL) 04/22/22 20:57 Ur Leukocyte Esterase Negative (NEGATIVE) 04/22/22 20:57 SARS-CoV-2 (PCR) Negative (NEGATIVE) 04/22/22 17:50 Influenza Type A (PCR) Negative (NEGATIVE) 04/22/22 17:50 Influenza Type B (PCR) Negative (NEGATIVE) 04/22/22 17:50 RSV (PCR) Negative (NEGATIVE) 04/22/22 17:50 - Plan (1) Bronchopneumonia Status: Acute Plan: SUPPLEMENTAL OXYGEN, CULTURES PENDING, LEVAQUIN 750MG IV Q48H, FORTAZ 1G IV BID, DILTIAZEM 30MG PO Q8H, DIFLUCAN 100MG IV DAILY, LASIX 20MG IV BID, DUO NEBS QID, PULMICORT NEBS BID, MUCOMYST IN NEB TX QID, OTBS ACHS, HUMULIN R SLIDING SCALE, THE POTASSIUM AND MAGNESIUM PROTOCOLS, AND HIS HOME MEDICATIONS WERE RESUMED. (2) CHF (congestive heart failure) Status: Acute Qualifiers: Heart failure type: unspecified Heart failure chronicity: acute on chronic Qualified Code(s): I50.9 - Heart failure, unspecified (3) A-fib Status: Acute Qualifiers: Atrial fibrillation type: unspecified Qualified Code(s): I48.91 - Unspecified atrial fibrillation (4) CKD (chronic kidney disease) stage 4, GFR 15-29 ml/min Status: Chronic (5) BPH (benign prostatic hyperplasia) Status: Chronic Qualifiers: Lower urinary tract symptom presence: unspecified whether lower urinary tract symptoms present Qualified Code(s): N40.0 - Benign prostatic hyperplasia without lower urinary tract symptoms Plan: RESUME HOME MEDS (6) Diabetes Status: Chronic Qualifiers: Diabetes mellitus type: type 2 Diabetes mellitus shelter insulin use: with joint terminal attack controller use Diabetes mellitus complication status: with hyperglycemia Qualified Code(s): E11.65 - Type 2 diabetes mellitus with hyperglycemia; Z79.4 - [facility] (current) use of insulin Plan: RESUME HOME MEDS (7) Hypertension Status: Chronic Qualifiers: Hypertension type: primary hypertension Qualified Code(s): I10 - Essential (primary) hypertension Plan: RESUME HOME MEDS
[2022-04-26] MEDS: PATIENT'S HOME MEDICATION PO SCH ×4 (11:03→20:57)
[2022-04-26] MEDS: JANUVIA PO SCH (12:01)
[2022-04-26] MEDS: NovoLIN R (or HumuLIN R) SUBCUT PRN ×3 (12:03→20:58)
[2022-04-26] MEDS: SNACK - Diabetic Appropriate PO SCH (20:54)
[2022-04-26] MEDS: SYNTHROID 100 mcg TAB PO SCH (20:55)
[2022-04-26] MEDS: ZyrTEC TAB 10 MG PO SCH (21:30)
[2022-04-27 05:44] LABS: BASOPHILS # (AUTO) 0.1 X10^3/uL (0.0-0.1); BASOPHILS % (AUTO) 0.5 % (0.2-1.0); EOSINOPHILS % (AUTO) 0.2 % (0.9-2.9); HEMATOCRIT 38.4 % (42.0-54.0); HEMOGLOBIN 12.7 g/dL (13.5-18.0); LYMPHOCYTES # (AUTO) 0.8 X10^3/uL (1.3-2.9); LYMPHOCYTES % (AUTO) 5.5 % (21.0-51.0); MEAN CORPUSCULAR HEMOGLOBIN 30.6 pg (27.0-34.0); MEAN CORPUSCULAR VOLUME 92.6 fL (80.0-100.0); MEAN PLATELET VOLUME 6.9 fL (7.4-11.0); MONOCYTES # (AUTO) 0.7 x10^3/uL (0.3-0.8); MONOCYTES % (AUTO) 4.5 % (0.0-13.0); NEUTROPHILS # (AUTO) 13.2 x10^3/uL (2.2-4.8); NEUTROPHILS % (AUTO) 89.3 % (42.0-75.0); RED BLOOD COUNT 4.15 X10^6/uL (4.7-6.0); RED CELL DISTRIBUTION WIDTH 15.5 % (11.6-16.5); WHITE BLOOD COUNT 14.7 X10^3/uL (3.6-10.0)
[2022-04-27 06:01] LABS: CALCIUM 8.4 mg/dL (8.5-10.1); CARBON DIOXIDE 32.8 mmol/L (21-32); COR CA(FOR HYPOALB) 9.2 mg/dL (8.5-10.1); CREATININE 2.26 mg/dL (0.70-1.30); TOTAL PROTEIN 6.2 g/dL (6.4-8.2)
[2022-04-27] MEDS: CARDIZEM TAB 30 MG PLAIN PO SCH ×3 (06:07→21:01)
[2022-04-27] MEDS: ZOSYN VIAL 3.375 GRAMS 3.375 G in NS 100 ML IV 100 ML IV SCH ×3 (06:07→21:05)
--- NOTE | 2022-04-27 07:59 | RAD ---
HISTORYShortness of breath, COPDSTUDYChest AP [id number] remains enlarged. No congestive heart failure is noted. Lungs are generally hyperinflated. No definite acute infiltrates or pleural effusions identified. Bony thorax is unremarkable.IMPRESSIONNo change cardiomegaly without congestive heart failureNo change hyperinflationNo definite infiltratesElectronically signed by: RAVEN HOUSTON (Apr 27, 2022 07:56:29)
[2022-04-27] MEDS: DUONEB 0.5 MG/3 MG (3 mL) NEB SCH ×4 (08:41→21:36)
[2022-04-27] MEDS: PULMICORT NEB TX 0.5 MG NEB SCH ×2 (08:41→21:36)
[2022-04-27] MEDS: MUCOMYST 20% 200 MG/ML NEB SCH ×3 (08:42→21:35)
[2022-04-27] MEDS: PREDNISONE TAB 20 MG PO SCH (09:56)
[2022-04-27] MEDS: DIFLUCAN 100 MG IV (MIX by PHARMACY)* 100 MG/50 ML BAG IV SCH (09:56)
[2022-04-27] MEDS: PriLOSEC PO SCH ×2 (09:57→20:57)
[2022-04-27] MEDS: VITAMIN D3 125 mcg (5,000 UNITS) PO SCH (09:58)
[2022-04-27] MEDS: FLOMAX PO SCH (09:58)
[2022-04-27] MEDS: ZINC SULFATE PO SCH ×2 (09:58→20:59)
[2022-04-27] MEDS: COLACE CAP 100 MG PO SCH ×2 (09:58→21:00)
[2022-04-27] MEDS: AVODART PO SCH (09:59)
[2022-04-27] MEDS: SINGULAIR TAB 10 MG PO SCH (09:59)
[2022-04-27] MEDS: MUCINEX EXPECTORANT PO SCH ×2 (10:00→20:56)
[2022-04-27] MEDS: TRICOR TAB 48 MG PO SCH (10:00)
[2022-04-27] MEDS: NYSTATIN SUSP MT SCH ×4 (10:00→21:03)
[2022-04-27] MEDS: LASIX IVP SCH ×2 (10:01→16:43)
[2022-04-27] MEDS: MAGIC MOUTHWASH (Orig. Formula) MT SCH ×4 (10:01→21:02)
[2022-04-27] MEDS: PATIENT'S HOME MEDICATION PO SCH ×4 (10:06→21:01)
[2022-04-27] MEDS: APRESOLINE TAB 25 MG PO SCH ×2 (11:06→20:58)
[2022-04-27] MEDS: COREG TAB 6.25 MG PO SCH ×2 (11:07→20:58)
[2022-04-27] MEDS: MIRALAX POWDER (255 GRAMS BTL) PO SCH (11:11)
[2022-04-27] MEDS: FOLTX PO SCH (11:12)
[2022-04-27] MEDS: JANUVIA PO SCH (12:06)
[2022-04-27] MEDS ORDERED: LOPRESSOR INJ 5 MG AMP IVP ONE (16:34)
[2022-04-27] MEDS ORDERED: LOPRESSOR INJ 5 MG AMP ONE (16:36)
[2022-04-27] MEDS: NovoLIN R (or HumuLIN R) SUBCUT PRN ×2 (16:55→22:11)
[2022-04-27] MEDS: LEVAQUIN PREMIX IV 750 MG 750 MG/150 ML BAG IV SCH (19:24)
[2022-04-27] MEDS: SYNTHROID 100 mcg TAB PO SCH (20:58)
[2022-04-27] MEDS: ZyrTEC TAB 10 MG PO SCH (20:59)
[2022-04-27] MEDS: SNACK - Diabetic Appropriate PO SCH (21:04)
[2022-04-27] MEDS: KLONOPIN TAB 1 MG PO PRN (21:05)
[2022-04-28] MEDS: CARDIZEM TAB 30 MG PLAIN PO SCH ×3 (05:22→22:00)
[2022-04-28] MEDS: ZOSYN VIAL 3.375 GRAMS 3.375 G in NS 100 ML IV 100 ML IV SCH ×3 (05:22→22:00)
[2022-04-28 06:15] LABS: BASOPHILS % (AUTO) 0.2 % (0.2-1.0); EOSINOPHILS % (AUTO) 0.1 % (0.9-2.9); HEMATOCRIT 37.1 % (42.0-54.0); HEMOGLOBIN 12.3 g/dL (13.5-18.0); LYMPHOCYTES # (AUTO) 0.8 X10^3/uL (1.3-2.9); LYMPHOCYTES % (AUTO) 5.5 % (21.0-51.0); MEAN CORPUSCULAR HEMOGLOBIN 30.7 pg (27.0-34.0); MEAN CORPUSCULAR HGB CONC 33.3 g/dL (33.0-35.0); MEAN CORPUSCULAR VOLUME 92.1 fL (80.0-100.0); MONOCYTES # (AUTO) 0.6 x10^3/uL (0.3-0.8); MONOCYTES % (AUTO) 4.5 % (0.0-13.0); NEUTROPHILS # (AUTO) 12.4 x10^3/uL (2.2-4.8); NEUTROPHILS % (AUTO) 89.7 % (42.0-75.0); RED BLOOD COUNT 4.03 X10^6/uL (4.7-6.0); RED CELL DISTRIBUTION WIDTH 15.3 % (11.6-16.5); WHITE BLOOD COUNT 13.8 X10^3/uL (3.6-10.0)
[2022-04-28 06:40] LABS: ALBUMIN 2.9 g/dL (3.4-5.0); CALCIUM 8.2 mg/dL (8.5-10.1); CARBON DIOXIDE 34.8 mmol/L (21-32); COR CA(FOR HYPOALB) 9.1 mg/dL (8.5-10.1); CREATININE 2.14 mg/dL (0.70-1.30); TOTAL PROTEIN 6.2 g/dL (6.4-8.2)
--- NOTE | 2022-04-28 07:21 | RAD ---
HISTORYPneumoniaSTUDYSingle-view [id number]/20/2023FINDINGSThe trachea is midline. The cardiac silhouette is clinics cardiomegaly. The lungs are clear without focal infiltrate or effusion. The bony thorax is unremarkable.IMPRESSIONNo acute cardiopulmonary disease.Electronically signed by: DARLEEN MICHAEL (Apr 28, 2022 07:19:14)
[2022-04-28] MEDS: LASIX IVP SCH ×2 (08:20→17:20)
[2022-04-28] MEDS: NYSTATIN SUSP MT SCH ×4 (08:20→20:37)
[2022-04-28] MEDS: PriLOSEC PO SCH ×2 (08:20→20:36)
[2022-04-28] MEDS: PATIENT'S HOME MEDICATION PO SCH ×4 (08:21→20:38)
[2022-04-28] MEDS: PREDNISONE TAB 20 MG PO SCH (08:22)
[2022-04-28] MEDS: AVODART PO SCH (08:22)
[2022-04-28] MEDS: ZINC SULFATE PO SCH ×2 (08:22→20:35)
[2022-04-28] MEDS: APRESOLINE TAB 25 MG PO SCH ×2 (08:22→20:37)
[2022-04-28] MEDS: FOLTX PO SCH (08:23)
[2022-04-28] MEDS: COLACE CAP 100 MG PO SCH ×2 (08:23→20:39)
[2022-04-28] MEDS: SINGULAIR TAB 10 MG PO SCH (08:23)
[2022-04-28] MEDS: VITAMIN D3 125 mcg (5,000 UNITS) PO SCH (08:24)
[2022-04-28] MEDS: COREG TAB 6.25 MG PO SCH ×2 (08:24→20:35)
[2022-04-28] MEDS: MAGIC MOUTHWASH (Orig. Formula) MT SCH ×4 (08:24→20:38)
[2022-04-28] MEDS: TESSALON PERLES PO PRN (08:24)
[2022-04-28] MEDS: FLOMAX PO SCH (08:24)
[2022-04-28] MEDS: MIRALAX POWDER (255 GRAMS BTL) PO SCH (08:25)
[2022-04-28] MEDS: MUCINEX EXPECTORANT PO SCH ×2 (08:25→20:35)
[2022-04-28] MEDS: MUCOMYST 20% 200 MG/ML NEB SCH ×4 (08:50→20:30)
[2022-04-28] MEDS: DUONEB 0.5 MG/3 MG (3 mL) NEB SCH ×4 (08:50→20:30)
[2022-04-28] MEDS: PULMICORT NEB TX 0.5 MG NEB SCH ×2 (08:50→20:30)
[2022-04-28] MEDS: DIFLUCAN 100 MG IV (MIX by PHARMACY)* 100 MG/50 ML BAG IV SCH (10:37)
[2022-04-28] MEDS: TOPROL XL PO SCH ×2 (10:42→13:17)
[2022-04-28] MEDS: TRICOR TAB 48 MG PO SCH (10:42)
[2022-04-28] MEDS: JANUVIA PO SCH (11:54)
[2022-04-28] MEDS: NovoLIN R (or HumuLIN R) SUBCUT PRN ×3 (12:02→22:00)
[2022-04-28] MEDS ORDERED: NS 500 ML IV 500 ML IV ONE (13:15)
[2022-04-28] MEDS: ZyrTEC TAB 10 MG PO SCH (20:36)
[2022-04-28] MEDS: SYNTHROID 100 mcg TAB PO SCH (20:37)
[2022-04-28] MEDS: SNACK - Diabetic Appropriate PO SCH (20:38)
[2022-04-28] MEDS: KLONOPIN TAB 1 MG PO PRN (22:30)
[2022-04-29] MEDS: CARDIZEM TAB 30 MG PLAIN PO SCH (05:35)
[2022-04-29] MEDS: ZOSYN VIAL 3.375 GRAMS 3.375 G in NS 100 ML IV 100 ML IV SCH (05:36)
[2022-04-29] MEDS: NovoLIN R (or HumuLIN R) SUBCUT PRN (06:18)
[2022-04-29 06:24] LABS: BASOPHILS % (AUTO) 0.1 % (0.2-1.0); EOSINOPHILS % (AUTO) 0.3 % (0.9-2.9); HEMATOCRIT 37.9 % (42.0-54.0); HEMOGLOBIN 12.5 g/dL (13.5-18.0); LYMPHOCYTES % (AUTO) 6.5 % (21.0-51.0); MEAN CORPUSCULAR HEMOGLOBIN 30.7 pg (27.0-34.0); MEAN PLATELET VOLUME 7.4 fL (7.4-11.0); MONOCYTES # (AUTO) 0.6 x10^3/uL (0.3-0.8); MONOCYTES % (AUTO) 3.8 % (0.0-13.0); NEUTROPHILS # (AUTO) 13.2 x10^3/uL (2.2-4.8); NEUTROPHILS % (AUTO) 89.3 % (42.0-75.0); RED BLOOD COUNT 4.07 X10^6/uL (4.7-6.0); RED CELL DISTRIBUTION WIDTH 15.3 % (11.6-16.5); WHITE BLOOD COUNT 14.8 X10^3/uL (3.6-10.0)
[2022-04-29 06:48] LABS: CALCIUM 8.2 mg/dL (8.5-10.1); CARBON DIOXIDE 36.2 mmol/L (21-32); CREATININE 2.13 mg/dL (0.70-1.30); TOTAL PROTEIN 6.1 g/dL (6.4-8.2)
--- NOTE | 2022-04-29 07:36 | RAD ---
HISTORYPneumoniaSTUDYSingle-view [id number]/21/2023FINDINGSThe trachea is midline. The cardiac silhouette is enlarged with a tortuous thoracic aorta . The lungs are clear without focal infiltrate or effusion. The bony thorax is unremarkable.IMPRESSIONNo acute cardiopulmonary disease.Electronically signed by: DARLEEN MICHAEL (Apr 29, 2022 07:34:33)
[2022-04-29] MEDS: PULMICORT NEB TX 0.5 MG NEB SCH (08:52)
[2022-04-29] MEDS: MUCOMYST 20% 200 MG/ML NEB SCH (08:52)
[2022-04-29] MEDS: DUONEB 0.5 MG/3 MG (3 mL) NEB SCH (08:52)
[2022-04-29] MEDS: PriLOSEC PO SCH (09:41)
[2022-04-29] MEDS: APRESOLINE TAB 25 MG PO SCH (09:42)
[2022-04-29] MEDS: FOLTX PO SCH (09:42)
[2022-04-29] MEDS: VITAMIN D3 125 mcg (5,000 UNITS) PO SCH (09:42)
[2022-04-29] MEDS: TRICOR TAB 48 MG PO SCH (09:42)
[2022-04-29] MEDS: TOPROL XL PO SCH (09:42)
[2022-04-29] MEDS: PREDNISONE TAB 20 MG PO SCH (09:42)
[2022-04-29] MEDS: FLOMAX PO SCH (09:42)
[2022-04-29] MEDS: SINGULAIR TAB 10 MG PO SCH (09:43)
[2022-04-29] MEDS: ZINC SULFATE PO SCH (09:43)
[2022-04-29] MEDS: COREG TAB 6.25 MG PO SCH (09:43)
[2022-04-29] MEDS: COLACE CAP 100 MG PO SCH (09:44)
[2022-04-29] MEDS: PATIENT'S HOME MEDICATION PO SCH (09:44)
[2022-04-29] MEDS: MAGIC MOUTHWASH (Orig. Formula) MT SCH (09:44)
[2022-04-29] MEDS: MUCINEX EXPECTORANT PO SCH (09:45)
[2022-04-29] MEDS: MIRALAX POWDER (255 GRAMS BTL) PO SCH (09:45)
[2022-04-29] MEDS: AVODART PO SCH (10:12)
[2022-04-29] MEDS: NYSTATIN SUSP MT SCH (10:13)
[2022-04-29] MEDS: LASIX IVP SCH (10:13)
[2022-04-29] MEDS: DIFLUCAN 100 MG IV (MIX by PHARMACY)* 100 MG/50 ML BAG IV SCH (10:13)
[2022-04-29 10:41] VITALS: BP 125/71
== END 2022-04-29 11:40 | disposition home health service (06) | DRG 193 ==
LOC: ER 15:53 → ICU 17:35 → MED/SURG 04-25 10:46
PROVIDERS: ADMIT Obstetrics & Gynecology Obstetrics; ATTEND Internal Medicine
DX: Z79.4 Long term (current) use of insulin; B37.1 Pulmonary candidiasis; R26.89 Other abnormalities of gait and mobility; E78.2 Mixed hyperlipidemia; R53.1 Weakness; F41.8 Other specified anxiety disorders; N40.0 Benign prostatic hyperplasia without lower urinary tract symptoms; I13.0 Hypertensive heart and chronic kidney disease with heart failure and stage 1 through stage 4 chronic kidney disease, or unspecified chronic kidney disease; E11.22 Type 2 diabetes mellitus with diabetic chronic kidney disease; I50.9 Heart failure, unspecified; J13 Pneumonia due to Streptococcus pneumoniae; I48.91 Unspecified atrial fibrillation; N18.4 Chronic kidney disease, stage 4 (severe); E11.65 Type 2 diabetes mellitus with hyperglycemia; Z20.822 Contact with and (suspected) exposure to COVID-19; R06.02 Shortness of breath